=== PATIENT | male | born 1955 | race Caucasian/White ===

== ENCOUNTER 2019-07-19 12:03 | Observation (INO) | payer OTHER, SELFPAY ==
--- NOTE | ~2019-07-19 | XR_ITS ---
EXAMINATION: XR chest 2V DATE: 07/19/2019 15:53 INDICATION: Allergic reaction presenting with dizziness and angioedema with lip swelling. TECHNIQUE: PA and lateral views of the chest were obtained. COMPARISON: Chest radiograph dated 11/16/2016 FINDINGS: Minimal linear discoid atelectasis at the lingula. Small calcified nodules in the right upper lung zo ne consistent with old granulomatous disease. No other airspace opacities, pulmonary edema, pleural e ffusion or pneumothorax. The cardiomediastinal silhouette is normal. Mild thoracic spondylosis. IMPRESSION: 1. Minimal lingular atelectasis. No other acute cardiopulmonary disease. Reviewed, dictated and finalized at location A. ANOLOGY TEACHER
--- NOTE | 2019-07-19 12:17 | ED.ALLEREA ---
HPI - Allergic Reaction General Chief complaint: Allergic Reaction Stated complaint: ?? allergic reaction Time Seen by Provider: 07/19/19 12:08 Source: EMS Mode of arrival: ambulatory Limitations: no limitations History of Present Illness HPI narrative: Patient is a 64-year-old male who presents to emergency department for evaluation of possible allergic reaction that began immediately after eating hummus notes that he began to itch and feel tingly and irritated and began to develop diffuse redness notes that he has had similar occurrences in the past EMS was contacted presented gave the patient Oralia patient on arrival notes that he continues to have his symptoms with similar occurrence in the past also notes feeling anxious patient denies any recent illness notes that he did also start metformin yesterday and took a pill yesterday with no complication. Patient denies throat tightening or difficulty swallowing Related Data Home Medications Medication Instructions Recorded Confirmed adalimumab 40 mg/0.8 mL 40 mg SUB-Q .every 7 days each 06/12/19 subcutaneous pen kit folic acid 1 mg tablet 1 mg PO DAILY 06/12/19 methotrexate sodium 2.5 mg tablet 10 mg PO WEEKLY tablet 06/12/19 Allergies Allergy/AdvReac Type Severity Reaction Status Date / Time Siberian ginseng Allergy Unknown HIVES Verified 09/10/18 09:45 Review of Systems Review of Systems: All systems reviewed & are unremarkable except as noted in HPI and below PMFSH Past Medical History Medical History Hypothyroidism Family History Family History Father Hypertension Social History Social History Alcohol intake: current Gender identity (if verbalized by the patient): Male Exam Narrative: Exam Narrative: GENERAL: Well-appearing, well-nourished, and in no acute distress. HEAD: Normocephalic, atraumatic. EYES: PERRLA and EOMI. ENT: Nares clear, no rhinorrhea or epistaxis. Mucous membranes moist. Oropharynx without tonsillar hypertrophy exudate or other lesions. No angioedema in the oropharynx NECK: Supple. No adenopathy or masses. No stridor CHEST: Clear to auscultation. No respiratory distress. No wheezes rales or rhonchi HEART: Tachycardic rate and rhythm. No murmur heard. Normal peripheral pulses. ABDOMEN: Soft, nontender, nondistended EXTREMITIES: Normal range of motion. No edema. SKIN: Warm, dry, diffuse erythematous rash NEURO: No focal deficits. Alert and oriented x3. Cranial nerves II through XII grossly intact PSYCH: Normal mood and affect. Course Course Emergency Course: Patient in the room in no distress hydrated in the emergency department was given medications for the allergic reaction with improvement will be kept in hospital for potential DKA and is agreeing to do so and is feeling much better at this time Consultations Consultation #1: Spoke with the curriculum coordinator and hospitalist have agreed to accept the patient Vital Signs Vital signs: Vital Signs Pulse Rate 122 H 07/19/19 12:32 Respiratory Rate 14 07/19/19 12:32 Blood Pressure 82/50 L 07/19/19 12:32 Pulse Oximetry 96 07/19/19 12:32 Pulse Rate 100 07/19/19 14:49 Respiratory Rate 19 07/19/19 14:49 Blood Pressure 119/65 07/19/19 14:49 Pulse Oximetry 99 07/19/19 14:49 MDM - Allergic Reaction MDM Narrative Medical decision making narrative: Patient in the room found to be in DKA his allergic reaction was treated unsure as to the etiology afebrile nontoxic-appearing at this time he dynamically stable feeling better Lab Data Result diagrams: 07/19/19 12:26 07/19/19 12:26 Labs: Lab Results 07/19/19 07/19/19 07/19/19 Range/Units 12:26 12:26 12:26 WBC 10.5 H (4.5-10.0) K/mm3 RBC 5.44 (4.6-6.20) M/mm3 Hgb 16.7 (14.0-18.0) g/dL H
[2019-07-19] MEDS: methylPREDNISolone SOD SUCC 125 MG VIAL IV PUSH (12:19)
[2019-07-19] MEDS: FAMOTIDINE 20 MG/2 ML VIAL IV PUSH ×2 (12:21→22:45)
[2019-07-19] MEDS: EPINEPHrine HCL INJ 1 MG/ML AMPUL 0.3 MG IM (12:22)
[2019-07-19] MEDS: SODIUM CHLORIDE 0.9% IV 1,000 ML 999 ML IV CONT (12:26)
[2019-07-19 12:32] VITALS: BP 82/50; PULSE 122; RESP 14; O2SAT 96
[2019-07-19 12:32] LABS: Basophils Percent Auto 0.3 % (0.2-1.2); Eosinophils Absolute Auto 0.1 K/mm3 (0-0.3); Eosinophils Percent Auto 0.9 % (0-4.4); Hematocrit 49.2 % (42.0-52.0); Hemoglobin 16.7 g/dL (14.0-18.0); Immature Granulocyte Absolute 0.07 K/mm3 (0.00-0.031); Immature Granulocyte Percent A 0.7 % (0-0.5); Lymphocytes Absolute Auto 3.14 K/mm3 (0.9-3.2); Lymphocytes Percent Auto 29.9 % (18.3-44.2); Mean Corpuscular HGB Conc 33.9 g/dl (32-36); Mean Corpuscular Hemoglobin 30.7 pg (26-34); Mean Corpuscular Volume 90.4 fl (80-100); Mean Platelet Volume 10.6 fl (7.4-10.4); Monocytes Absolute Auto 0.4 K/mm3 (0.1-0.6); Monocytes Percent Auto 3.3 % (2.6-8.5); Neutrophils Absolute Auto 6.8 K/mm3 (1.3-6.7); Neutrophils Percent Auto 64.9 % (45.5-73.1); Platelet Count Result 313 k/mm3 (150-375); Red Blood Count 5.44 M/mm3 (4.6-6.20); Red Cell Distribution Width 13.6 % (11.5-14.5); White Blood Count 10.5 K/mm3 (4.5-10.0)
[2019-07-19 12:50] LABS: Blood Urea Nitrogen 30 mg/dL (9-20); Calcium 8.7 mg/dL (8.4-10.2); Carbon Dioxide 11 mmol/L (22-30); Chloride 98 mmol/L (98-107); Estimated Glomerular Filt Rate 34; Glucose 291 mg/dL (75-110); Potassium 4.1 mmol/L (3.4-5.0); Sodium 135 mmol/L (137-145)
[2019-07-19] MEDS: LORAZEPAM INJ 2 MG/ML VIAL 0.5 MG IV PUSH (13:09)
[2019-07-19 13:13] VITALS: BP 82/51; PULSE 99; O2SAT 98
[2019-07-19 13:33] LABS: Magnesium 2.1 mg/dL (1.6-2.3); Phosphorus 5.7 mg/dL (2.5-4.5)
[2019-07-19 13:38] LABS: Beta-Hydroxybutyrate/Acetoacetate 0.96 mmol/L (0.02-0.27)
--- NOTE | 2019-07-19 13:53 | PC.NURSE ---
Pt is unable to give urine sample now
[2019-07-19 14:49] VITALS: BP 119/65; PULSE 100; RESP 19; O2SAT 99
[2019-07-19 15:01] LABS: Add Urine Microscopic? YES; Appearance Urine Cloudy (Clear); Bacteria Urine Trace /hpf; Bilirubin Urine Negative (Negative); Blood Urine 1+ (Negative); Color Urine Yellow (Yellow); Glucose Urine UA 1+ mg/dL (Negative); Hyaline Casts Urine 20-29 /lpf; Ketones Urine Trace mg/dL (Negative); Leukocyte Esterase Ur Negative LEU/UL (Negative); Mucus Urine Rare /lpf; Nitrate Urine Negative (Negative); Protein Urine 2+ mg/dL (Negative); Specific Grav Ur 1.017 (1.001-1.035); Squamous Epithelial Cell Urine Occasional /hpf (Few); Urobilinogen Urine Negative mg/dL (<2.0); WBC Urine 0-3 /hpf
[2019-07-19 15:13] LABS: Alveolar/Arterial O2 Gradient 30.6 mmHg; Base Excess ABG -10.9 mEq/l (+/-2.0); Carboxyhemoglobin 0.4 % THb (0-2.0); Device ROOM AIR; Fractional Inspired Oxygen 21 %; HCO3 ABG 12.9 mEq/l (22.0-26.0); Methemoglobin ABG 0.2 %THb (0-1.5); Modified Allen's Test Pass; Oxygen Content ABG 20.2 %vol (16.0-22.0); Oxygen Saturation ABG 96.6 % (95.0-100.0); Oxyhemoglobin 95.4 % THb (90.0-100.0); PCO2 ABG 24.5 mmHg (35.0-45.0); PO2 ABG 89.8 mmHg (80.0-100.0); PO2 FiO2 Ratio Arterial Blood 4.28 %; Site Drawn LEFT RADIAL; pH ABG 7.338 (7.350-7.450)
[2019-07-19] MEDS: INSULIN HUMAN REGULAR (*BKC) 100 UNITS in SODIUM CHLORIDE 0.9% IV 99 ML 8 UNITS IV CONT (16:20)
[2019-07-19] MEDS: INSULIN HUMAN REGULAR (*BKC) 100 UNITS/ML IV PUSH (16:25)
[2019-07-19 16:30] LABS: Lactic Acid Reflex 1.8 mmol/L (0.7-2.1)
[2019-07-19 19:08] LABS: Glucose Point of Care 296 (65-105)
[2019-07-19 19:08] LABS: Glucose Point of Care 200 (65-105)
[2019-07-19 19:08] LABS: Glucose Point of Care 174 (65-105)
--- NOTE | 2019-07-19 19:13 | PC.NURSE ---
called to give report, was told receiving nurse was in middle of report and will call me when she is done
[2019-07-19 19:14] VITALS: BP 133/77; PULSE 99; O2SAT 96
--- NOTE | 2019-07-19 20:05 | PM.IMHP ---
H&P: HPI History of Present Illness Chief complaint: Allergic Reaction Narrative: This is a pleasant 64 year old diabetic male who has had diabetes for the past 5 years and presented [facility] with an acute allergic reaction. The patient is known to have had #5 previous allergic reactions in the past from different foods and describes having an allergic reaction today that occurred approximately 5 minutes after eating red pepper hummus. He immediately started to develop itching and blotchy hives all over his torso and back. He also experienced shortness of breath and lip swelling. These symptoms are characteristic of his previous reactions. His daughter was coming over to see him and he got up to answer the door and passed out before he got to the door. He does not know how long he was down for but believes it was only for a few minutes. EMT arrived and after a few minutes they attempted to walk him but he again had presyncopal symptoms of blurry vision and faintness. He was put in a stretcher before he passed out a second time. He denies any nausea or vomiting but does admit that over the past week has been feeling bad. He did notice that his blood sugars have been over 200 mg/dl and he did see his PCP yesterday who just started him on Metformin again. He previously was on metformin but admits that he has been off of his diabetic medication for over 2 years. He hasn't been checking his blood glucose regularly. Over the past week has had increased urinary frequency and thirst. He denies any other symptoms tonight such as sore throat, fevers, coughing, diarrhea, abdominal pain, nausea, vomiting, dysuria, hematuria, black stools, chest pain, palpitations, or rectal bleeding. In the ER tonight the patient was treated with epinephrine, solu-medrol, and found to have a metabolic acidosis w/ increased anion gap. He was initiated on an insulin drip and Photographic Process Attendant was consulted. We have been asked to admit him to the hospital for further care. Review of Systems Review of Systems: All systems reviewed & are unremarkable except as noted in HPI and below PMFSH Past Medical History Medical History Diabetes mellitus HTN (hypertension), benign Hyperlipidemia Hypothyroidism Psoriatic arthritis Surgical History Surgical History Total knee replacement status Family History Family History Father Hypertension Social History Social History Smoking status: Former smoker Tobacco type: cigars Smoking end date: 07/19/19 Alcohol intake: current Drinks per week: 3 Substance use: never Gender identity (if verbalized by the patient): Male Spiritual care concerns: No Agree to blood products: Yes Meds Home Medications and Allergies Home Medications Medication Instructions Recorded Confirmed Type pravastatin 40 mg tablet 40 mg PO DAILY #90 tablet 04/24/19 Rx adalimumab 40 mg/0.8 mL 40 mg SUB-Q .every 7 days each 06/12/19 History subcutaneous pen kit folic acid 1 mg tablet 1 mg PO DAILY 06/12/19 History methotrexate sodium 2.5 mg tablet 10 mg PO WEEKLY tablet 06/12/19 History lisinopril 40 mg tablet 40 mg PO DAILY #180 tablet 07/04/19 Rx metformin 500 mg tablet 500 mg PO BID #60 tablet 07/18/19 07/18/19 Rx Allergies Allergy/AdvReac Type Severity Reaction Status Date / Time Siberian ginseng Allergy Unknown HIVES Verified 09/10/18 09:45 hummus Allergy Intermediate Swelling Uncoded 07/19/19 22:14 Vital Signs Vital Signs - 24 hr 07/19/19 12:32 07/19/19 13:13 07/19/19 14:49 Pulse Rate 122 H 99 100 Respiratory Rate 14 19 Blood Pressure 82/50 L 82/51 L 119/65 Pulse Oximetry 96 98 99 07/19/19 19:14 Pulse Rate 99 Respiratory Rate Blood Pressure 133/77 Pulse Oximetry 96 Exam
[2019-07-19 20:15] VITALS: BP 114/80; PULSE 113; RESP 16; TEMP 36.9; O2SAT 96
[2019-07-19 20:26] LABS: Glucose Point of Care 130 (65-105)
[2019-07-19 20:33] VITALS: BMI 28.7
[2019-07-19 21:04] LABS: Blood Urea Nitrogen 29 mg/dL (9-20); Calcium 8.4 mg/dL (8.4-10.2); Carbon Dioxide 15 mmol/L (22-30); Chloride 104 mmol/L (98-107); Estimated CRCL calculation 43 ml/min; Estimated Glomerular Filt Rate 44; Glucose 129 mg/dL (75-110); Potassium 4.3 mmol/L (3.4-5.0); Sodium 133 mmol/L (137-145)
--- NOTE | 2019-07-19 21:08 | ADMGEN ---
This patient, Didier Frazier, was admitted to Intensive Care Unit-9 at 2003. Patient/family oriented to hospital policies and general routines including ID bracelet, bed and alarms, visiting hours, pain management, procedures, bathroom and other care routines, personal items, smoking policy, room service/diet, and visiting hours. Valuables list has been completed. Information on how to activate the Rapid Response Team has been discussed. Patient/Family are encouraged to report perceived risks to care and to ask questions if they do not understand what they are told or what they should do.
[2019-07-19 21:15] LABS: Hemoglobin A1C 10.5 % (<5.7)
[2019-07-19 21:28] LABS: Glucose Point of Care 83 (65-105)
[2019-07-19] MEDS: KCL 20 MEQ/D5/0.45% SOD CHL 1,000 ML 150 ML IV CONT (21:43)
[2019-07-19 22:00] VITALS: BP 95/60; PULSE 72; RESP 16; O2SAT 97
[2019-07-19 22:33] LABS: Glucose Point of Care 153 (65-105)
[2019-07-19 23:29] LABS: Glucose Point of Care 152 (65-105)
[2019-07-20] VITALS (8 sets, daily range): BP systolic 84–132; BP diastolic 56–98; PULSE 58–84; RESP 12–18; TEMP 36.4–36.8; O2SAT 98–100; BMI 28.8
[2019-07-20 00:39] LABS: Blood Urea Nitrogen 28 mg/dL (9-20); Calcium 8.4 mg/dL (8.4-10.2); Carbon Dioxide 17 mmol/L (22-30); Chloride 103 mmol/L (98-107); Estimated CRCL calculation 46 ml/min; Estimated Glomerular Filt Rate 47; Glucose 159 mg/dL (75-110); Potassium 4.9 mmol/L (3.4-5.0); Sodium 132 mmol/L (137-145)
[2019-07-20 00:57] LABS: Glucose Point of Care 154 (65-105)
[2019-07-20 01:27] LABS: Glucose Point of Care 165 (65-105)
[2019-07-20 01:58] LABS: Glucose Point of Care 160 (65-105)
[2019-07-20] MEDS: INSULIN GLARGINE (*BKC) 100 UNITS/ML 10 UNITS SUB-Q (02:04)
[2019-07-20 02:57] LABS: Glucose Point of Care 163 (65-105)
[2019-07-20] MEDS: SODIUM CHLORIDE 0.9% IV 1,000 ML 150 ML IV CONT ×2 (03:22→08:25)
[2019-07-20 04:51] LABS: Basophils Percent Auto 0.1 % (0.2-1.2); Hematocrit 37.7 % (42.0-52.0); Hemoglobin 13.2 g/dL (14.0-18.0); Immature Granulocyte Absolute 0.04 K/mm3 (0.00-0.031); Immature Granulocyte Percent A 0.4 % (0-0.5); Lymphocytes Absolute Auto 1.13 K/mm3 (0.9-3.2); Mean Corpuscular Hemoglobin 31.2 pg (26-34); Mean Corpuscular Volume 89.1 fl (80-100); Mean Platelet Volume 10.4 fl (7.4-10.4); Monocytes Absolute Auto 0.5 K/mm3 (0.1-0.6); Monocytes Percent Auto 4.3 % (2.6-8.5); Neutrophils Absolute Auto 9.6 K/mm3 (1.3-6.7); Neutrophils Percent Auto 85.2 % (45.5-73.1); Platelet Count Result 266 k/mm3 (150-375); Red Blood Count 4.23 M/mm3 (4.6-6.20); Red Cell Distribution Width 13.7 % (11.5-14.5); White Blood Count 11.3 K/mm3 (4.5-10.0)
[2019-07-20 05:11] LABS: Blood Urea Nitrogen 27 mg/dL (9-20); Calcium 8.5 mg/dL (8.4-10.2); Carbon Dioxide 18 mmol/L (22-30); Chloride 105 mmol/L (98-107); Estimated CRCL calculation 49 ml/min; Estimated Glomerular Filt Rate 51; Glucose 151 mg/dL (75-110); Potassium 5.2 mmol/L (3.4-5.0); Sodium 133 mmol/L (137-145)
[2019-07-20 07:31] LABS: Glucose Point of Care 122 (65-105)
[2019-07-20] MEDS: PRAVASTATIN SODIUM 20 MG TABLET 40 MG PO (08:22)
[2019-07-20] MEDS: FOLIC ACID 1 MG TABLET PO (08:22)
[2019-07-20] MEDS: FAMOTIDINE 20 MG/2 ML VIAL IV PUSH (08:23)
--- NOTE | 2019-07-20 08:51 | PM.IMPN ---
Progress Note: A&P Assessment and Plan (1) Anaphylaxis: Qualifiers: Encounter type: initial encounter Qualified Code(s): T78.2XXA - Anaphylactic shock, unspecified, initial encounter Code(s): T78.2XXA - Anaphylactic shock, unspecified, initial encounter Status: Acute Assessment and Plan: Appears to have been result of red pepper hummus. Symptoms have now been resolved after receiving IV Solu-Medrol, Benadryl and IV Pepcid. Known history of problems with allergic reactions. Telemetry reviewed on 07/20/2019 with sinus rhythm. Will transfer to medical floor. Discussed with sticker on. Should have EpiPen available on discharge. (2) Metabolic acidosis with increased anion gap and accumulation of organic acids: Code(s): E87.2 - Acidosis Status: Acute Assessment and Plan: Elevated anion gap on admission. Due to uncontrolled diabetes mellitus. Now off IV insulin drip. Did receive Lantus 10 units earlier today. Anion gap is closed. Will continue to monitor glucose. (3) Uncontrolled diabetes mellitus: Qualifiers: Diabetes mellitus type: type 2 Glycemic state: with hyperglycemia Qualified Code(s): E11.65 - Type 2 diabetes mellitus with hyperglycemia Code(s): E11.65 - Type 2 diabetes mellitus with hyperglycemia Status: Chronic Assessment and Plan: HgbA1C 10.5. Previous history of pre diabetes for several years. Has not been doing well with diet for several months. Recently diagnosed with diabetes 2 days ago by primary care physician. Was started on metformin at that time but advised will not restart given his creatinine level. Patient aware will most likely go home on insulin. Has already received Lantus earlier today. Continue sliding scale insulin. Will continue to monitor glucose levels. Consults to dietitian and chemical educator initiated. Patient very motivated to pursue healthy lifestyle changes once again for better control of his diabetes. (4) Acute renal failure: Qualifiers: Acute renal failure type: unspecified Qualified Code(s): N17.9 - Acute kidney failure, unspecified Code(s): N17.9 - Acute kidney failure, unspecified Status: Acute Assessment and Plan: Patient reports has known issues with kidneys being affected by other medications with his Humira for psoriatic arthritis. Creatinine is now down to 1.40 this morning after being 2.00 on admission. Will discontinue IV fluids as able to orally hydrate. Will continue to monitor. (5) Leukocytosis: Qualifiers: Leukocytosis type: unspecified Qualified Code(s): D72.829 - Elevated white blood cell count, unspecified Code(s): D72.829 - Elevated white blood cell count, unspecified Status: Acute Assessment and Plan: Likely secondary to acute anaphylaxis. No signs of acute infection. WBC 11.3 today but did receive IV steroids yesterday. Will monitor while here. (6) Benign essential hypertension: Code(s): I10 - Essential (primary) hypertension Status: Chronic Assessment and Plan: Blood pressure reviewed on 07/20/2019 and stable with home lisinopril on hold. Will continue to monitor. (7) Mixed hyperlipidemia: Code(s): E78.2 - Mixed hyperlipidemia Status: Chronic Assessment and Plan: Continue pravastatin. (8) Psoriatic arthritis: Code(s): L40.50 - Arthropathic psoriasis, unspecified Status: Chronic Assessment and Plan: Continue home folic acid, methotrexate and Humira. (9) DVT prophylaxis: Code(s): Z29.9 - Encounter for prophylactic measures, unspecified Status: Acute Assessment and Plan: SCDs. Time Spent With Patient Time with patient: 15 - 25 minutes Subjective Date/time seen: 07/20/19 08:51 Interval history: Date of Service: 07/20/2019. Admitted with anaphylactic allergic reaction and metabolic acidosis with increased anion gap se
--- NOTE | 2019-07-20 09:10 | WPDCNINT ---
Assessment and Plan Assessment and plan (1) Anaphylaxis: Qualifiers: Encounter type: initial encounter Qualified Code(s): T78.2XXA - Anaphylactic shock, unspecified, initial encounter Code(s): T78.2XXA - Anaphylactic shock, unspecified, initial encounter Status: Acute Assessment and Plan: Symptoms have now been resolved after receiving IV Solu-Medrol, Benadryl and IV Pepcid In the emergency department. hemodynamically stable and rash has resolved patient is transferring to medical floor. further treatment as per internal medicine physician (2) DKA (diabetic ketoacidoses): Code(s): E11.10 - Type 2 diabetes mellitus with ketoacidosis without coma Status: Acute Assessment and Plan: Elevated anion gap on admission. Due to uncontrolled diabetes mellitus. patient was started on IV insulin infusion and IV fluids. Overnight his anion gap has closed and patient is Now off IV insulin drip. Did receive Lantus 10 units earlier today. Will continue to monitor glucose. (3) Uncontrolled diabetes mellitus: Qualifiers: Diabetes mellitus type: type 2 Glycemic state: with hyperglycemia Qualified Code(s): E11.65 - Type 2 diabetes mellitus with hyperglycemia Code(s): E11.65 - Type 2 diabetes mellitus with hyperglycemia Status: Chronic Assessment and Plan: HgbA1C 10.5. Previous history of pre diabetes for several years. Has not been doing well with diet for several months. Recently diagnosed with diabetes 2 days ago by primary care physician. Was started on metformin at that time. metformin held due to elevated creatinine level. on Lantus and sliding scale at this time Consults to dietitian and measurer initiated. (4) Acute renal failure: Qualifiers: Acute renal failure type: unspecified Qualified Code(s): N17.9 - Acute kidney failure, unspecified Code(s): N17.9 - Acute kidney failure, unspecified Status: Acute Assessment and Plan: likely prerenal from hypertension and hypokalemia. improved with IV fluids Creatinine is now down to 1.40 this morning after being 2.00 on admission. monitor intake and output and creatinine (5) Benign essential hypertension: Code(s): I10 - Essential (primary) hypertension Status: Chronic Assessment and Plan: treat as needed Will continue to monitor. (6) Mixed hyperlipidemia: Code(s): E78.2 - Mixed hyperlipidemia Status: Chronic Assessment and Plan: Continue pravastatin. (7) Psoriatic arthritis: Code(s): L40.50 - Arthropathic psoriasis, unspecified Status: Chronic Assessment and Plan: Continue home folic acid, methotrexate and Humira. (8) DVT prophylaxis: Code(s): Z29.9 - Encounter for prophylactic measures, unspecified Status: Acute Assessment and Plan: SCDs. Additional Plan patient is transferring out to floor today. I will sign off at this time Scrape Gatherer Consult Note Consult date: 07/20/19 Time Seen: 09:10 HPI: Didier Frazier is a 64 year old male with past medical history of diabetes who was not on any treatment presented yesterday to emergency department with allergic reaction after eating hummus. Patient immediately noted itching all over his body and red bumps after eating teaspoonful of her hummus. Patient has had allergic reaction in the past for different food items and most of them have resolved by taking Benadryl. In ED patient was found to be hyperglycemic, had elevated ketones and was diagnosed with DKA. His lactic acid level was normal. patient was found to be hypotensive and dehydrated. He was given IV fluids and started on insulin infusion. Is anaphylaxis was treated with epinephrine, solu-medrol, and H2B. overnight patient's anion gap closed and patient was switched from IV insulin infusion to subcutaneous insulin. Patient this morning feels 'fantastic' and denies an
--- NOTE | 2019-07-20 11:05 | PCDIET ---
Patient/spouse educated re: carbohydrate counting this date. Questions answered and RD contact information provided with Diabetes Management booklet.
--- NOTE | 2019-07-20 11:08 | PC.NURSE ---
This patient, Didier Frazier, was transferred to [facility] on 07/20/19 at 1109. Personal belongings sent with patient. Report given to Vandana BETTS. Appropriate documentation sent with patient.
[2019-07-20 11:28] LABS: Glucose Point of Care 188 (65-105)
--- NOTE | 2019-07-20 11:35 | PC.NURSE ---
This patient, Didier Frazier, was received from [ ICU] on 07/20/19 at 1135. Personal belongings list checked and signed. Patient/family oriented to unit policies and routines
[2019-07-20] MEDS: SODIUM POLYSTYRENE SULFONONATE 15 GM/60 ML BTL 30 GM PO (13:36)
[2019-07-20 17:03] LABS: Glucose Point of Care 181 (65-105)
[2019-07-20] MEDS: FAMOTIDINE 20 MG TABLET PO (20:41)
[2019-07-20 21:51] LABS: Glucose Point of Care 192 (65-105)
[2019-07-21 06:00] VITALS: BP 112/56; PULSE 85; RESP 16; TEMP 36.3; O2SAT 100
[2019-07-21 06:28] LABS: Hematocrit 39.3 % (42.0-52.0); Hemoglobin 13.6 g/dL (14.0-18.0); Mean Corpuscular HGB Conc 34.6 g/dl (32-36); Mean Corpuscular Hemoglobin 30.9 pg (26-34); Mean Corpuscular Volume 89.3 fl (80-100); Mean Platelet Volume 10.3 fl (7.4-10.4); Platelet Count Result 261 k/mm3 (150-375); Red Cell Distribution Width 13.7 % (11.5-14.5); White Blood Count 8.2 K/mm3 (4.5-10.0)
[2019-07-21 06:36] LABS: Blood Urea Nitrogen 22 mg/dL (9-20); Calcium 8.8 mg/dL (8.4-10.2); Carbon Dioxide 21 mmol/L (22-30); Chloride 106 mmol/L (98-107); Estimated CRCL calculation 52 ml/min; Estimated Glomerular Filt Rate 55; Glucose 151 mg/dL (75-110); Phosphorus 3.4 mg/dL (2.5-4.5); Potassium 4.3 mmol/L (3.4-5.0); Sodium 135 mmol/L (137-145)
[2019-07-21] MEDS: INSULIN GLARGINE (*BKC) 100 UNITS/ML 10 UNITS SUB-Q (08:04)
[2019-07-21] MEDS: PRAVASTATIN SODIUM 20 MG TABLET 40 MG PO (08:07)
[2019-07-21] MEDS: FAMOTIDINE 20 MG TABLET PO (08:08)
[2019-07-21] MEDS: METHOTREXATE 2.5 MG TAB (*CHEMO) 10 MG PO (08:08)
[2019-07-21] MEDS: FOLIC ACID 1 MG TABLET PO (08:08)
[2019-07-21 09:16] LABS: Glucose Point of Care 139 (65-105)
--- NOTE | 2019-07-21 11:15 | PM.DS ---
DS: Diagnosis Admitting Diagnosis Admitting Diagnosis: Anaphylactic shock, unspecified, initial encounter Discharge Diagnosis (1) Anaphylaxis: Qualifiers: Encounter type: initial encounter Qualified Code(s): T78.2XXA - Anaphylactic shock, unspecified, initial encounter Code(s): T78.2XXA - Anaphylactic shock, unspecified, initial encounter Status: Acute Assessment and Plan: Appears to have been result of red pepper hummus. Symptoms have now been resolved after receiving IV Solu-Medrol, Benadryl and IV Pepcid. Known history of problems with allergic reactions. Telemetry reviewed on 07/20/2019 with sinus rhythm. Will transfer to medical floor. Discussed with aviation electrician. Should have EpiPen available on discharge. (2) Metabolic acidosis with increased anion gap and accumulation of organic acids: Code(s): E87.2 - Acidosis Status: Acute Assessment and Plan: Elevated anion gap on admission. Due to uncontrolled diabetes mellitus. Now off IV insulin drip. Did receive Lantus 10 units earlier today. Anion gap is closed. Will continue to monitor glucose. (3) Uncontrolled diabetes mellitus: Qualifiers: Diabetes mellitus type: type 2 Glycemic state: with hyperglycemia Qualified Code(s): E11.65 - Type 2 diabetes mellitus with hyperglycemia Code(s): E11.65 - Type 2 diabetes mellitus with hyperglycemia Status: Chronic Assessment and Plan: HgbA1C 10.5. Previous history of pre diabetes for several years. Has not been doing well with diet for several months. Recently diagnosed with diabetes 2 days ago by primary care physician. Was started on metformin at that time but advised will not restart given his creatinine level. Patient aware will most likely go home on insulin. Has already received Lantus earlier today. Continue sliding scale insulin. Will continue to monitor glucose levels. Consults to dietitian and clinical nurse educator initiated. Patient very motivated to pursue healthy lifestyle changes once again for better control of his diabetes. (4) Acute renal failure: Qualifiers: Acute renal failure type: unspecified Qualified Code(s): N17.9 - Acute kidney failure, unspecified Code(s): N17.9 - Acute kidney failure, unspecified Status: Acute Assessment and Plan: Patient reports has known issues with kidneys being affected by other medications with his Humira for psoriatic arthritis. Creatinine is now down to 1.40 this morning after being 2.00 on admission. Will discontinue IV fluids as able to orally hydrate. Will continue to monitor. (5) Leukocytosis: Qualifiers: Leukocytosis type: unspecified Qualified Code(s): D72.829 - Elevated white blood cell count, unspecified Code(s): D72.829 - Elevated white blood cell count, unspecified Status: Acute Assessment and Plan: Likely secondary to acute anaphylaxis. No signs of acute infection. WBC 11.3 today but did receive IV steroids yesterday. Will monitor while here. (6) Benign essential hypertension: Code(s): I10 - Essential (primary) hypertension Status: Chronic Assessment and Plan: Blood pressure reviewed on 07/20/2019 and stable with home lisinopril on hold. Will continue to monitor. (7) Mixed hyperlipidemia: Code(s): E78.2 - Mixed hyperlipidemia Status: Chronic Assessment and Plan: Continue pravastatin. (8) Psoriatic arthritis: Code(s): L40.50 - Arthropathic psoriasis, unspecified Status: Chronic Assessment and Plan: Continue home folic acid, methotrexate and Humira. (9) DVT prophylaxis: Code(s): Z29.9 - Encounter for prophylactic measures, unspecified Status: Acute Assessment and Plan: SCDs. DS: Summary Hospital Course Reason for hospitalization: This is a pleasant 64 year old diabetic male who has had diabetes for the past 5 years and presented t
[2019-07-21 12:39] LABS: Glucose Point of Care 136 (65-105)
[2019-07-23 11:06] LABS: Glucose Point of Care 292 (65-105)
== END 2019-07-21 12:30 | disposition home or self-care (01) ==
LOC: ANHED 17:03 → ANHICU 20:13 → ANH3MEDSUR 07-20 12:11 → ANHICU 07-23 16:23
PROVIDERS: Emergency Medicine Emergency Medical Services; Family Medicine; Internal Medicine; Admitting Provider Family Medicine; Emergency Provider Emergency Medicine; PCP Internal Medicine; Visit Provider Family Medicine
DX: T78.2XXA Anaphylactic shock, unspecified, initial encounter (principal); E87.2 Acidosis; E11.65 Type 2 diabetes mellitus with hyperglycemia; N17.9 Acute kidney failure, unspecified; D72.829 Elevated white blood cell count, unspecified; I10 Essential (primary) hypertension; E78.2 Mixed hyperlipidemia; L40.50 Arthropathic psoriasis, unspecified; E03.9 Hypothyroidism, unspecified; Z79.84 Long term (current) use of oral hypoglycemic drugs; Z79.899 Other long term (current) drug therapy; Z87.891 Personal history of nicotine dependence; Z91.018 Allergy to other foods; Z96.659 Presence of unspecified artificial knee joint
CPT/HCPCS: 36415; 36600; 71046; 80048; 81001; 82010; 82375; 82805; 82948; 83036; 83050; 83605; 83735; 84100; 85025; 85027; 87081; 87804; 96361; 96365; 96366; 96368; 96372; 96375; 96376; 99291; A9270; G0378; J0171; J1815; J2060; J2930; J3480; J7030

== ENCOUNTER → 2020-01-24 13:39 | Outpatient (CLI) | payer OTHER, SELFPAY ==
--- NOTE | ~2020-01-24 | US_ITS ---
EXAMINATION: US renal BI DATE: 01/24/2020 14:03 INDICATION: Abnormal results of kidney function tests TECHNIQUE: Multiple grayscale and Doppler ultrasound images of the kidneys were obtained. COMPARISON: None. FINDINGS: The right kidney measures 9.7 x 4.9 x 5.8 cm. The left kidney measures 10.6 x 5.5 x 5.4 cm. There is a 1.4 x 1.5 cm cyst of the left kidney upper pole. The kidneys demonstrate normal parenchym al echogenicity. There is no hydronephrosis. The bladder is incompletely distended but unremarkable i n appearance. IMPRESSION: 1. Normal kidneys without hydronephrosis. Reviewed, dictated and finalized at location A.
== END ==
PROVIDERS: PCP Internal Medicine; Visit Provider Internal Medicine Nephrology
DX: R94.4 Abnormal results of kidney function studies (principal)
CPT/HCPCS: 76775

== ENCOUNTER 2023-02-26 11:51 | Inpatient (IN) | payer BC, MEDICARE, SELFPAY ==
[2023-02-26] VITALS (8 sets, daily range): BP systolic 101–138; BP diastolic 65–89; PULSE 82–102; RESP 14–22; TEMP 36.6–36.8; O2SAT 97–100; BMI 27.8
--- NOTE | ~2023-02-26 | XR_ITS ---
EXAMINATION: XR chest 1V portable DATE: 03/08/2023 22:22 INDICATION: Shortness of breath. TECHNIQUE: A single frontal view of the chest was obtained. COMPARISON: Chest single view 03/08/2023 at 8:19 AM FINDINGS: There is a diffuse interstitial pattern in the lungs. There are airspace opacities in the p erihilar regions. There is a small right pleural effusion. No pneumothorax. The heart size is normal. A right internal jugular central venous catheter is seen with tip in the right atrium. IMPRESSION: 1. Worsened diffuse lung disease, consistent with moderate pulmonary edema. 2. Small right pleural effusion. Reviewed, dictated and finalized at location E.
--- NOTE | ~2023-02-26 | XR_ITS ---
EXAMINATION: XR abdomen gastric tube insert DATE: 03/09/2023 10:50 INDICATION: Nasogastric tube insertion TECHNIQUE: A supine view of the abdomen and lower chest was obtained for evaluation of feeding tube placement. COMPARISON: Chest radiograph dated 03/09/2023 FINDINGS: Nasogastric tube extends into the body the stomach with distal tip collimated beyond the inferior mar gin of the [id number]-gw-bjjz. Endotracheal tube tip 6.0 cm above the asael. Large-bore dual-lumen right internal jugular central venous catheter with distal tip in the high right atrium. Again seen are bi lateral perihilar predominant opacities most suspicious for moderate pulmonary edema although differe ntial includes pneumonia. Heart size is normal. IMPRESSION: 1. Nasogastric tube extends into the stomach with distal tip collimated below the inferior margin of the [id number]. 2. Bilateral perihilar opacities which could represent moderate pulmonary edema or pneumonia. Reviewed, dictated and finalized at location A. IMPRESSION: 1. Nasogastric tube extends into the stomach with distal tip collimated below t he inferior margin of the [id number]-ld-[id number]. 2. Bilateral perihilar opacities which could represent moderate pulmonary edema or pneumonia.
--- NOTE | ~2023-02-26 | US_ITS ---
EXAMINATION: US renal BI DATE: 02/26/2023 18:47 INDICATION: Acute on chronic kidney failure. TECHNIQUE: Multiple grayscale and Doppler ultrasound images of the kidneys were obtained. COMPARISON: None. FINDINGS: The right kidney measures 10.6 x 6.0 x 6.0 cm. The left kidney measures 11.4 x 6.0 x 5.4 cm. The kidn eys demonstrate normal parenchymal echogenicity. Right renal calculus noted. Additional known renal c alculus and the left renal calculi not visualized sonographically. Known left renal cyst not visualiz ed sonographically. There is no hydronephrosis. The bladder is decompressed by a [place] catheter. IMPRESSION: Nephrolithiasis. Otherwise unremarkable renal sonogram findings. Reviewed, dictated and finalized at location K.
--- NOTE | ~2023-02-26 | US_ITS ---
US abdomen limited DATE: 02/27/2023 09:39 INDICATION: Elevated liver function tests TECHNIQUE: Real-time imaging of liver, pancreas, gallbladder COMPARISON: 02/26/2023 CT abdomen pelvis FINDINGS: No hepatic or pancreatic space-occupying mass lesion is detected. Normal hepatopedal portal venous flow direction. No evidence of gallstones, gallbladder wall thickening or abnormal pericholecystic fluid collection. Negative sonographic Wolff's sign. The common bile duct measures 4 mm, normal. IMPRESSION: Negative Reviewed, dictated and finalized at Location A. Reviewed, dictated and finalized at location A. IMPRESSION: Negative
--- NOTE | ~2023-02-26 | CT_ITS ---
EXAMINATION: CT abdomen pelvis wo con DATE: 02/26/2023 13:30 INDICATION: lower abdominal pain, elevated LFTs, CALLI TECHNIQUE: Computed tomography (CT) of the abdomen and pelvis was performed without intravenous contr ast. Automated exposure control and iterative reconstruction technique were employed. The dose-length product was 681.64 mGy-cm. COMPARISON: None. FINDINGS: Lower thorax: Heavy coronary artery calcification. Liver: Normal. Biliary/Gallbladder: Gallbladder is normal. No bile duct dilation. Pancreas: No mass or duct dilation. Spleen: Normal. Adrenals:No mass. Kidneys: Nonobstructing bilateral renal calculi. Simple left midpole cyst. GI tract: No small or large bowel dilation. Normal appendix. Mesentery/Peritoneum: No ascites, mass, or free air. Retroperitoneum: No mass. Atherosclerotic abdominal aortic and/or arterial calcifications. Pelvis: The bladder is decompressed by [place] catheter. Soft Tissues: Soft tissues and body wall unremarkable. Bones: No acute osseous finding. IMPRESSION: No acute abdominopelvic process detected Reviewed, dictated and finalized at location K.
--- NOTE | ~2023-02-26 | XR_ITS ---
EXAMINATION: XR chest 1V portable DATE: 03/05/2023 12:26 INDICATION: Central line placement. TECHNIQUE: A single frontal view of the chest was obtained. COMPARISON: Chest one view 02/26/2023, CT abdomen and pelvis 02/26/2023 FINDINGS: There is no pneumonia, pleural effusion, or pneumothorax. The heart size is normal. A right internal jugular central venous catheter is seen with tip at the superior cavoatrial junction. IMPRESSION: 1. Central line tip at the superior cavoatrial junction. Reviewed, dictated and finalized at location A.
--- NOTE | ~2023-02-26 | XR_ITS ---
XR chest port-a-cath/central DATE: 03/08/2023 08:28 INDICATION: Insertion of dialysis catheter TECHNIQUE: Portable AP chest on 03/08/2023 at 0822 hours; 2 views COMPARISON: 03/05/2023 portable AP chest FINDINGS: Right internal jugular dialysis catheter is present, distal tip overlying upper right atriu m. No evidence of pneumothorax. There is mild infiltrate or atelectasis in the lower lung zones. There may be slight pleural effusion s. Normal heart size. IMPRESSION: Right internal jugular dialysis catheter tip overlying upper right atrium Mild infiltrate or atelectasis in the lower lung zones and possible minimal pleural effusions; no pne umothorax Reviewed, dictated and finalized at Location A. Reviewed, dictated and finalized at location L. IMPRESSION: Right internal jugular dialysis catheter tip overlying upper right atrium Mild infiltrate or atelectasis in the lower lung zones and possible minimal ple ural effusions; no pneumothorax
--- NOTE | ~2023-02-26 | XR_ITS ---
XR chest 1V portable DATE: 02/26/2023 13:15 INDICATION: Cough, shortness of breath TECHNIQUE: Portable AP chest on 02/26/2023 at 1314 hours COMPARISON: July 19, 2019 PA and lateral chest FINDINGS: Normal heart size. Minimal atelectasis at the lower lung zones. The lungs otherwise appear clear. No pleural effusion or pneumothorax. IMPRESSION: Minimal atelectasis at the lung bases Reviewed, dictated and finalized at location A.
--- NOTE | ~2023-02-26 | XR_ITS ---
XR chest ET placement DATE: 03/09/2023 10:50 INDICATION: Intubation; confirm ET tube position TECHNIQUE: Portable AP chest on 03/09/2023 at 1043 hours COMPARISON: 03/08/2023 portable AP chest at 2218 hours FINDINGS: Interval placement of ET tube since last evening. ET tube tip is approximately 6.2 cm above the asael; ideal range is 2-5 cm. NG tube is noted passing into the stomach. Large bore dual lumen right internal jugular central venous catheter tip overlies the right atrium. Heart size appears within normal limits. There are prominent bilateral central pulmonary consolidatio n, bilateral Alexys B-lines, thickening of the minor fissure consistent with subpleural edema and mil d pleural effusions are noted, consistent with pulmonary edema, congestive change. This has increased in severity since 03/08/2023 at 2218 hours. IMPRESSION: ET tube tip 6.2 cm above asael; ideal range is 2-5 cm NG tube passing into stomach Prominent pulmonary edema, increased in severity since 03/08/2023 Reviewed, dictated and finalized at Location A. Reviewed, dictated and finalized at location B.
--- NOTE | ~2023-02-26 | XR_ITS ---
EXAMINATION: XR fl guide central line place DATE: 03/08/2023 08:25 INDICATION: Dialysis catheter insertion TECHNIQUE: A single fluoroscopic image of the right clavicular region was obtained during procedure p erformed by Dr. Leiva. Radiologist was not present for the imaging or procedure. The amount of fluoro scopy time used during this procedure was 0.4 minutes. COMPARISON: None. FINDINGS/IMPRESSION: Partially visualized cephalad portion of a right internal jugular large-bore madelyn l-lumen central venous catheter. See procedure note for further detail. Reviewed, dictated and finalized at location A.
--- NOTE | 2023-02-26 12:23 | PC.NURSE ---
unable to void at this time
[2023-02-26 12:29] LABS: Hematocrit 39.1 % (42.0-52.0); Mean Corpuscular HGB Conc 35.8 g/dl (32-36); Mean Corpuscular Hemoglobin 31.5 pg (26-34); Mean Corpuscular Volume 88.1 fl (80-100); Mean Platelet Volume 11.1 fl (7.4-10.4); Platelet Count Result 202 k/mm3 (150-375); Red Blood Count 4.44 M/mm3 (4.6-6.20); Red Cell Distribution Width 14.7 % (11.5-14.5); White Blood Count 13.3 K/mm3 (4.5-10.0)
[2023-02-26 12:45] LABS: Band Neutrophils Percent 14 % (0-6); Lymphocytes Absolute Manual 0.39 K/mm3 (1.1-4.5); Monocytes Absolute Manual 0.39 K/mm3 (0.1-0.90); Monocytes Percent Manual 3 % (3-9); Neutrophils Percent Manual 80 % (46-73); Platelet Estimate Adequate (Adequate); Total Cells Counted 100
[2023-02-26 12:46] LABS: Schistocytes None Seen (NORMAL)
[2023-02-26 12:47] LABS: Alanine Aminotransferase 496 U/L (6-50); Albumin Level 3.9 g/dL (3.5-5.1); Alkaline Phosphatase 256 U/L (38-126); Anion Gap 26 mmol/L (8-16); Aspartate Amino Transferase 617 U/L (17-59); Bilirubin,Total 1.6 mg/dL (0.2-1.3); Blood Urea Nitrogen 118 mg/dL (9-20); Calcium 8.5 mg/dL (8.4-10.2); Carbon Dioxide 8 mmol/L (22-30); Chloride 91 mmol/L (98-107); Estimated CRCL calculation 5 ml/min; Estimated Glomerular Filt Rate 3; Glucose 195 mg/dL (65-110); Potassium 4.8 mmol/L (3.4-5.0); Sodium 125 mmol/L (137-145)
[2023-02-26] MEDS: LIDOCAINE HCL 2% GEL UROJET 10 ML PKG (12:58)
--- NOTE | 2023-02-26 13:10 | ED.MALEGU ---
HPI - Male Genitourinary General Chief complaint: Urogenital-Male Stated complaint: unable to urinate Time Seen by Provider: 02/26/23 12:10 History of Present Illness HPI Narrative: Patient is a 67-year-old male with a history of diabetes, hypertension, psoriatic arthritis CKD presenting with urination problems. Patient states that for the last week he has had decreased urinary output and has been having difficulties urinating. States that he has not been able to urinate at all over the last 36 hours though he feels like he needs to. States that he had intermittent fevers earlier this week after being exposed to his grandson who had pinkeye and eurg-pwkv-fas-mouth disease. Reports chronic cough but no new chest pain or shortness of breath. Ports nausea and intermittent dry heaving. States he has been unable to tolerate much p.o. intake at all. He had outpatient labs drawn yesterday but his doctor is off this weekend so he has not received a call about them. No further complaints. Related Data Home Medications Medication Instructions Recorded Confirmed adalimumab 40 mg/0.8 mL 40 mg subcut .EVERY 10 DAYS 06/12/19 02/26/23 subcutaneous pen kit (Humira Pen) folic acid 1 mg tablet 1 mg PO DAILY 06/12/19 02/26/23 methotrexate sodium 2.5 mg tablet 5 mg PO WEEKLY 01/14/21 02/26/23 empagliflozin 25 mg tablet 25 mg PO DAILY 02/26/23 02/26/23 (Jardiance) lisinopril 40 mg tablet 40 mg PO Q12H 02/26/23 02/26/23 Allergies Allergy/AdvReac Type Severity Reaction Status Date / Time Siberian ginseng Allergy Mild HIVES Verified 12/15/22 06:45 hummus Allergy Intermediate Swelling Uncoded 12/15/22 06:45 green tea Allergy Other Uncoded 12/15/22 06:45 Review of Systems Review of Systems: All systems reviewed & are unremarkable except as noted in HPI and below PMFSH Past Medical History Medical History Chronic kidney disease, stage 3b Diabetes mellitus Hyperlipidemia Hypertension Hypothyroidism Psoriatic arthritis Type 2 diabetes mellitus Surgical History Surgical History Total knee replacement status Family History Family History Father Hypertension Social History Social History Social History: Surrogate medical decision maker: Nilsa Frazier, spouse. Code status: Full code. Smoking status: Former smoker Tobacco type: cigars Smoking end date: 07/19/19 Alcohol intake: current Drinks per week: 8 Substance use: never Substance use type: does not use Lack of Transportation: No Lack of Food: Never True Current Housing: I Have Housing Concerned About Future Housing: No Difficulty Paying Gas/Electric Bills: No Difficulty Paying for Meds: No Currently Unemployed: No Education: High School Diploma/GED Difficulty w/ Childcare or Family Care: No Living arrangements: with family Spiritual care concerns: Yes (L[employer]) Agree to blood products: Yes Exam Narrative: GENERAL: Nontoxic, no acute distress, pleasant and cooperative HEAD: Normocephalic, atraumatic. EYES: PERRLA and EOMI. ENT: Mucous membranes dry NECK: Supple. CHEST: Clear to auscultation. No respiratory distress. HEART: Regular rate and rhythm. ABDOMEN: Soft, + suprapubic tenderness, no guarding or rebound EXTREMITIES: Normal range of motion. No edema. SKIN: Warm, dry, no rash. NEURO: Alert and oriented x3. PSYCH: Normal mood and affect. Course Vital Signs Vital signs: Vital Signs Temperature 98.3 F 02/26/23 12:03 Pulse Rate 100 02/26/23 12:03 Respiratory Rate 16 02/26/23 12:03 Blood Pressure 127/86 02/26/23 12:03 Pulse Oximetry 100 02/26/23 12:03 Oxygen Delivery Room Air 02/26/23 12:03 Temperature 97.2 F L 03/04/23 05:57 Pulse Rate 64 03/04/23 05:57 Respi
[2023-02-26 13:13] LABS: Appearance Urine Slightly Cloudy (Clear); Bilirubin Urine Negative (Negative); Blood Urine 3+ (Negative); Color Urine Yellow (Yellow); Glucose Urine UA 2+ mg/dL (Negative); Ketones Urine Negative (Negative); Leukocyte Esterase Ur 1+ LEU/UL (Negative); Nitrate Urine Negative (Negative); Protein Urine 2+ mg/dL (Negative); Urobilinogen Urine 0.2 mg/dL (<2.0); pH Urine 5.5 (5.0-9.0)
[2023-02-26] MEDS: SODIUM CHLORIDE 0.9% IV 1,000 ML 999 ML IV CONT ×2 (13:19→13:20)
--- NOTE | 2023-02-26 13:30 | PC.NURSE ---
Pt to CT scan via stretcher at this time. NS infusing.
[2023-02-26 13:33] LABS: Add Urine Microscopic? YES
[2023-02-26 13:50] LABS: Bacteria Urine 1+ /hpf; Hyaline Casts Urine Present /lpf; Need Manual Microscopic Reviewed; RBC Urine 21-50 /hpf (0-2); Squamous Epithelial Cell Urine Few /hpf (Few); WBC Clumps Urine Present /HPF; WBC Urine >100 /hpf
[2023-02-26 13:51] LABS: Lipase 566 U/L (23-300); Magnesium 2.7 mg/dL (1.6-2.3); Phosphorus 6.5 mg/dL (2.5-4.5)
[2023-02-26 13:55] LABS: INR 1.1; Prothrombin Time 14.9 Seconds (11.1-14.7)
[2023-02-26 13:56] LABS: Partial Thromboplastin Time 30.9 SECONDS (22.3-36.8)
[2023-02-26] MEDS: cefTRIAXone 2 GM/NS 100 ML 2 GM/100 ML BAG IVPB (14:07)
[2023-02-26 14:35] LABS: Influenza A QL RT-PCR Negative (Negative); Influenza B QL RT-PCR Negative (Negative); SARS-CoV-2 RNA PCR Negative (Negative)
[2023-02-26] MEDS: LORazepam INJ (*CRX) 2 MG/ML VIAL 0.5 MG IV PUSH (14:50)
[2023-02-26 15:10] LABS: Creatine Kinase 1309 U/L (55-170)
[2023-02-26 15:30] LABS: Strep Group A RT-PCR NOT DETECTED (Negative)
--- NOTE | 2023-02-26 16:50 | PM.IMHP ---
H&P: HPI History of Present Illness Date/Time: 02/26/23 18:00 Chief Complaint: Decreased urine output. Narrative: This is a pleasant 67-year-old gentleman with chronic kidney disease stage IIIB, hypertension, hyperlipidemia, type 2 diabetes mellitus, and psoriatic arthritis who presented to the emergency department from home for evaluation of decreased urine output. The patient provides the following history. He has not been feeling well since last Tuesday afternoon when he developed a fever not long after taoism with a reported T max of 104? F. Other than generalized malaise and poor appetite, he did not have any specific symptoms. The following day he had nausea and dry heaves and he had an episode where he became confused and near syncopal which he attributes to an episode of hypoglycemia. Several times on Tuesday he had near syncopal episodes due to weakness and dizziness and he thinks he may have lost consciousness when going to the bathroom but he cannot say for sure. Appetite remains poor. He has recently developed some mild dysuria and has noticed that his urine output has dropped off significantly. He spoke with his primary care provider on Tuesday about his symptoms and he made an appointment with [facility] yesterday for a urinalysis and lab work. Due to ongoing symptoms he decided to come in today for evaluation. While in the ED his lab results from [facility] came back showing that his creatinine was significantly elevated from baseline. Again he has not had much in the way of urine output and he is not retaining urine. No recent change in medications nor have any new medications been introduced. No NSAID use. He has been afebrile for couple of days. No headache, neck ache, sinus congestion, sore throat, cough, vomiting, or diarrhea. He has not noticed any rashes or joint swelling or pain. He has not had any injuries, traumas, heat exposure, or falls with prolonged down time. In the ED: He was afebrile on arrival. Blood pressures have been stable and well within normal limits. Labs were significant for a WBC count of 13.3 with 14% bands noted on manual differential, sodium 125, potassium 4.8, chloride 91, carbon dioxide 8, anion gap 26, BUN 118, creatinine 14.6, glucose 195, phosphorus 6.5, magnesium 2.7, calcium 8.5, total bilirubin 1.6, AST 617, ALT 496, complex face 256, total CK 1309, lipase 566. UA showed 2+ protein, 2+ glucose, 3+ blood, 1+ leukocyte esterase, 21 to 50 RBC, greater than 100 WBC, WBC clumps, 1+ bacteria, and [address] of the abdomen and pelvis showed no acute process. Minimal atelectasis noted at the lung bases on chest x-ray. Strep screen was negative. He received 1 g of ceftriaxone for UTI and 2 L normal saline bolus and he is being admitted in this setting for further workup in nephrology consultation. Review of Systems Review of Systems: Twelve systems were reviewed and are negative except for as per HPI. [facility] Past Medical History Medical History Chronic kidney disease, stage 3b Diabetes mellitus Hyperlipidemia Hypertension Hypothyroidism Psoriatic arthritis Type 2 diabetes mellitus Surgical History Surgical History (Updated 02/26/23 @ 22:28 by Soha Bradley PA-C) Total knee replacement status Family History Family History Father Hypertension Social History Social History (Updated 02/26/23 @ 22:28 by Soha Bradley PA-C) Social History: Surrogate medical decision maker: Nilsa Frazier, spouse. Code status: Full code. Smoking status: Former smoker Tobacco type: cigars Smoking end date: 07/19/19 Alcohol intake: current Drinks per week: 8 Substance use: never Substance use type: does not use Lack of Transportation: No Lack of Food: Never True Current Housing: I Have Housing Concerned About Future Housing: No Difficulty Paying Gas/Electric Bills: No
[2023-02-26 17:09] LABS: Glucose Point of Care 186 mg/dl (65-105)
[2023-02-26 17:51] LABS: Alveolar/Arterial O2 Gradient 31.1 mmHg; Carboxyhemoglobin 0.2 % THb (0-2.0); Fractional Inspired Oxygen 21 %; HCO3 ABG 10.8 mEq/l (22.0-26.0); Methemoglobin ABG 0.2 %THb (0-1.5); Oxygen Content ABG 16.5 %vol (16.0-22.0); Oxygen Saturation ABG 97.5 % (95.0-100.0); Oxyhemoglobin 96.4 % THb (90.0-100.0); PO2 ABG 96.5 mmHg (80.0-100.0); Reduced Hemoglobin 3.2 %THb (0-5.0); Total Hemoglobin 12.1 g/dL (12.0-18.0); pH ABG 7.384 (7.350-7.450)
[2023-02-26 17:52] LABS: Device ROOM AIR; Modified Allen's Test Pass; PCO2 ABG 18.5 mmHg (35.0-45.0); Site Drawn RIGHT RADIAL
[2023-02-26 18:30] LABS: Hemoglobin A1C 6.9 % (<5.7)
[2023-02-26 18:39] LABS: Albumin Level 3.3 g/dL (3.5-5.1); Anion Gap 20 mmol/L (8-16); CRP 8.3 mg/dL (<1.0); Calcium 7.7 mg/dL (8.4-10.2); Carbon Dioxide 10 mmol/L (22-30); Chloride 95 mmol/L (98-107); Glucose 191 mg/dL (65-110); Magnesium 2.6 mg/dL (1.6-2.3); Potassium 4.8 mmol/L (3.4-5.0); Sodium 125 mmol/L (137-145)
[2023-02-26 18:42] LABS: Erythrocyte Sedimentation Rate 114 mm/hr (0-20)
[2023-02-26 18:44] LABS: Blood Urea Nitrogen 120 mg/dL (9-20); Estimated CRCL calculation 5 ml/min; Estimated Glomerular Filt Rate 3
[2023-02-26 18:45] LABS: Lactate Dehydrogenase 970 U/L (120-246)
[2023-02-26 18:46] LABS: Complement C3 108 mg/dL (88-165)
[2023-02-26 19:20] LABS: HIV 1/2 Ab P24 Ag Result Negative (Negative)
[2023-02-26 19:35] LABS: Hepatitis B Surface Antigen Negative (Negative)
[2023-02-26 19:40] LABS: Hepatitis B Core IgM Result Negative (Negative)
[2023-02-26] MEDS: SODIUM BICARBONATE 8.4% 150 MEQ in WATER, STERILE FOR INJECTION 950 ML 100 MEQ IV CONT (19:47)
[2023-02-26 19:52] LABS: Hepatitis B Surface Anti Res Negative; Hepatitis C Virus Antibody Negative (Negative)
[2023-02-26 20:17] LABS: Glucose Point of Care 213 mg/dl (65-105)
[2023-02-26] MEDS: INSULIN ASPART (*BKC) 100 UNITS/ML SUB-Q (20:20)
[2023-02-26 21:59] LABS: Creatinine Urine 43.5 mg/dL; Total Protein Urine Random 183 mg/dL; Ur Ttl Prot Creatinine Ratio 4.21 mg/mg (0-0.20)
[2023-02-26 22:02] LABS: Potassium Urine Random 18.5 meq/L; Sodium Urine Random 85 meq/L
[2023-02-26 22:25] LABS: Eosinophil Urine None Seen % (None Seen); Urine Eos QC 2nd Tech Confirmed
[2023-02-27] VITALS (9 sets, daily range): BP systolic 118–146; BP diastolic 58–69; PULSE 60–73; RESP 18–22; TEMP 36.5–36.8; O2SAT 98–100
--- NOTE | 2023-02-27 04:07 | PC.NURSE ---
Notified Dr Oleary that patients output from the beginnging of the shift was 140ml, new orders were recieved to increase fluids to 125l/hr
[2023-02-27] MEDS: SODIUM BICARBONATE 8.4% 150 MEQ in WATER, STERILE FOR INJECTION 950 ML 125 MEQ IV CONT ×3 (05:35→23:57)
[2023-02-27 06:59] LABS: Hematocrit 31.5 % (42.0-52.0); Hemoglobin 11.2 g/dL (14.0-18.0); Mean Corpuscular HGB Conc 35.6 g/dl (32-36); Mean Corpuscular Hemoglobin 30.9 pg (26-34); Mean Platelet Volume 11.1 fl (7.4-10.4); Platelet Count Result 167 k/mm3 (150-375); Red Blood Count 3.62 M/mm3 (4.6-6.20); Red Cell Distribution Width 14.4 % (11.5-14.5); White Blood Count 10.9 K/mm3 (4.5-10.0)
[2023-02-27 07:31] LABS: Alanine Aminotransferase 320 U/L (6-50); Albumin Level 2.8 g/dL (3.5-5.1); Alkaline Phosphatase 179 U/L (38-126); Anion Gap 19 mmol/L (8-16); Aspartate Amino Transferase 315 U/L (17-59); Bilirubin,Total 0.9 mg/dL (0.2-1.3); Calcium 7.2 mg/dL (8.4-10.2); Carbon Dioxide 13 mmol/L (22-30); Chloride 95 mmol/L (98-107); Creatine Kinase 1035 U/L (55-170); Estimated CRCL calculation 4 ml/min; Estimated Glomerular Filt Rate 3; Glucose 118 mg/dL (65-110); Magnesium 2.5 mg/dL (1.6-2.3); Phosphorus 6.5 mg/dL (2.5-4.5); Potassium 4.2 mmol/L (3.4-5.0); Sodium 127 mmol/L (137-145)
[2023-02-27 07:44] LABS: Blood Urea Nitrogen 127 mg/dL (9-20)
[2023-02-27 07:53] LABS: Glucose Point of Care 108 mg/dl (65-105)
--- NOTE | 2023-02-27 09:50 | PM.CNNEP ---
Assessment and Plan Assessment and plan (1) Acute on chronic renal failure: Code(s): N17.9 - Acute kidney failure, unspecified; N18.9 - Chronic kidney disease, unspecified Status: Acute Assessment and Plan: The patient has chronic kidney disease. This is likely due to hypertension and diabetes. His baseline creatinine runs between 1.5 and 1.9. The patient has superimposed acute kidney injury. By history it sounds like he probably has dehydration because he was not eating and drinking very well. He also continued to take lisinopril which can exaggerated the rise in creatinine due to dehydration. He had fevers and so could have some sort of infection. His urinalysis does show some activity so he could have a UTI. He has had blood and urine cultures done and he is on antibiotics. There other causes of renal failure as well. He had an ultrasound which has ruled out obstruction. the patient does have psoriatic arthritis and so is at higher risk of having other autoimmune diseases; therefore he could have some sort of a glomerulonephritis. However with the high fever any exposure to infection from his grandson, it is a little less likely. In addition if he does have infection then I would not want to give him high-dose steroids. Since he is making urine with the IV fluids sounds like he is responding to the current therapy. So at this point will continue the IV fluids and antibiotics. We can wait for cultures to come back. If the urine output does not continue to improve and the renal function is not improving and if cultures are negative then I think we could try stress dose steroids and consider biopsy. we discussed dialysis. His numbers are very high but since his urine output is up and he starting respond to fluid I think we could wait and see if his numbers start to get better since he does not really have any symptoms of uremia at this point (2) Type 2 diabetes mellitus: Code(s): E11.9 - Type 2 diabetes mellitus without complications Status: Acute Assessment and Plan: the patient has diabetes. He is on insulin sliding scale. Hospitalists will manage this. (3) Hypertension: Code(s): I10 - Essential (primary) hypertension Status: Acute Assessment and Plan: His blood pressure is under good control (4) Transaminitis: Code(s): R74.01 - Elevation of levels of liver transaminase levels Status: Acute Assessment and Plan: liver enzymes are little high and the CPK is a little high as well. This all may be due to the infection. (5) Abnormal urinalysis: Code(s): R82.90 - Unspecified abnormal findings in urine Status: Acute Assessment and Plan: His urine has blood, protein, glucose, red cells, and white cells. Cultures are pending. He is on antibiotics. (6) Metabolic acidosis: Code(s): E87.20 - Acidosis, unspecified Status: Acute Assessment and Plan: Bicarbonate level is low. His anion gap is 19 I would expect an anion gap of about 10. His lactic acid is okay. Most likely this is due to the renal insufficiency. He is on a bicarb drip History of Present Illness Reason for Consult Consult date: 02/27/23 Chief Complaint Chief complaint: Acute Renal Failure History of Present Illness Narrative: Didier is a very pleasant 67-year-old gentleman who has multiple medical problems including a history of chronic kidney disease with a baseline creatinine of around 1.5-1.9, hypertension, diabetes, psoriatic arthritis, who was in his usual state of health until about a week ago. He had been taking care of his grandson who had pink eye and this turned in to hand foot and mouth disease. Starting last weekend the patient started running fevers and poor appetite with malaise. The patient had fevers as high as 104. Later on in the week his fevers came down to about 102. He noted that he last made urine
[2023-02-27 11:29] LABS: Glucose Point of Care 148 mg/dl (65-105)
--- NOTE | 2023-02-27 12:34 | P.PNIM_ITS ---
Progress Note: A&P Assessment and Plan (1) Acute on chronic renal failure: Code(s): N17.9 - Acute kidney failure, unspecified; N18.9 - Chronic kidney disease, unspecified Status: Acute Assessment and Plan: 02/26/2023: Followed by Dr. Monroy for chronic kidney disease stage IIIB thought to be related to hypertension and diabetes. Creatinine in November was 1.66 and is 14.60 today! Etiology unclear. Seems to be more of a nephritic picture with rapid onset, a significant decrease in urine output, uremia, hematuria, and mild proteinuria. Could be drug related. He was recently exposed to grandson with viral type symptoms (strep screen negative today). Likely a component of dehydration as well given poor oral intake the last 5 days. * [place] catheter has been placed to monitor strict I/O. * Renal ultrasound is pending. * Serum and urine immunofixation this summer were reportedly unremarkable. Multiple labs and urine studies ordered. * Hold lisinopril, sitagliptin, and empagliflozin. * He has been started on a bicarbonate carbonate drip. * Nephrology has been consulted for their expertise. 02/27/2023: * Patient's baseline creatinine ranging between 1.66 to 1.96 * Labs today reveal BUN 127, creatinine 15.0, in the setting of acute on chronic kidney disease * [place] catheter in place and draining * Renal ultrasound revealed nephrolithiasis otherwise unremarkable * CT of abdomen pelvis without contrast did not show any acute abdominopelvic process * Abdominal ultrasound was negative showing normal hepatopetal portal venous flow direct * Immunology panel pending * Nephrology consulted and following patient. Patient sees Dr. Monroy on an outpatient basis and he is the one who came and seen the patient today. Immunology panel was sent on patient and is pending. Patient has psoriatic arthritis and is at higher risk of having an autoimmune component like glomerularnephritis. Nephrology discussed dialysis however will be holding off patient is now responding to IV fluids and making urine. Plan is to continue to trend labs. * Will continue bicarb drip for now and reassess tomorrow. Carbon dioxide level this morning was 13 * Will continue to hold nephrotoxic medication (2) Transaminitis: Code(s): R74.01 - Elevation of levels of liver transaminase levels Status: Acute Assessment and Plan: 02/26/2023: Abdominal exam is benign and CT of the abdomen and pelvis without contrast showed no findings to correlate. In light of the renal failure, a CK was checked and was elevated at 1309. I suppose it is plausible that his CK was higher and is now drifting downwards however he gives no history to suggest a reason for him to have rhabdomyolysis. * Hepatitis studies pending. * Hold adalimumab and rosuvastatin. * Continue to monitor closely. 02/27/2023: * AST 315, ALT 320, alk-phos 179, CK 1035 * Hepatitis panel essentially negative however Hep B core total is still pending * Continue to hold adalimumab and rosuvastatin * Continue to monitor CMP and CK (3) Urinary tract infection: Code(s): N39.0 - Urinary tract infection, site not specified Status: Acute Assessment and Plan: 02/26/23: UA is positive for 1+ leukocyte esterase, greater than 100 WBC, WBC clumps, and 1+ bacteria. * Continue empiric ceftriaxone. * Urine culture pending. 02/27/23: * Patient was given a 1 time dose Rocephin 2 g on 02/26/2023 * Continue with Rocephin 1 g Q 24 hour * Urine culture still pending (4) Metabolic acidosis: Code(s): E87.20 - Acidosis, unspecif
--- NOTE | 2023-02-27 12:34 | PM.IMPN ---
Progress Note: A&P Assessment and Plan (1) Acute on chronic renal failure: Code(s): N17.9 - Acute kidney failure, unspecified; N18.9 - Chronic kidney disease, unspecified Status: Acute Assessment and Plan: 02/26/2023: Followed by Dr. Monroy for chronic kidney disease stage IIIB thought to be related to hypertension and diabetes. Creatinine in November was 1.66 and is 14.60 today! Etiology unclear. Seems to be more of a nephritic picture with rapid onset, a significant decrease in urine output, uremia, hematuria, and mild proteinuria. Could be drug related. He was recently exposed to grandson with viral type symptoms (strep screen negative today). Likely a component of dehydration as well given poor oral intake the last 5 days. [place] catheter has been placed to monitor strict I/O. Renal ultrasound is pending. Serum and urine immunofixation this summer were reportedly unremarkable. Multiple labs and urine studies ordered. Hold lisinopril, sitagliptin, and empagliflozin. He has been started on a bicarbonate carbonate drip. Nephrology has been consulted for their expertise. 02/27/2023: Patient's baseline creatinine ranging between 1.66 to 1.96 Labs today reveal BUN 127, creatinine 15.0, in the setting of acute on chronic kidney disease [place] catheter in place and draining Renal ultrasound revealed nephrolithiasis otherwise unremarkable CT of abdomen pelvis without contrast did not show any acute abdominopelvic process Abdominal ultrasound was negative showing normal hepatopetal portal venous flow direct Immunology panel pending Nephrology consulted and following patient. Patient sees Dr. Monroy on an outpatient basis and he is the one who came and seen the patient today. Immunology panel was sent on patient and is pending. Patient has psoriatic arthritis and is at higher risk of having an autoimmune component like glomerularnephritis. Nephrology discussed dialysis however will be holding off patient is now responding to IV fluids and making urine. Plan is to continue to trend labs. Will continue bicarb drip for now and reassess tomorrow. Carbon dioxide level this morning was 13 Will continue to hold nephrotoxic medication (2) Transaminitis: Code(s): R74.01 - Elevation of levels of liver transaminase levels Status: Acute Assessment and Plan: 02/26/2023: Abdominal exam is benign and CT of the abdomen and pelvis without contrast showed no findings to correlate. In light of the renal failure, a CK was checked and was elevated at 1309. I suppose it is plausible that his CK was higher and is now drifting downwards however he gives no history to suggest a reason for him to have rhabdomyolysis. Hepatitis studies pending. Hold adalimumab and rosuvastatin. Continue to monitor closely. 02/27/2023: AST 315, ALT 320, alk-phos 179, CK 1035 Hepatitis panel essentially negative however Hep B core total is still pending Continue to hold adalimumab and rosuvastatin Continue to monitor CMP and CK (3) Urinary tract infection: Code(s): N39.0 - Urinary tract infection, site not specified Status: Acute Assessment and Plan: 02/26/23: UA is positive for 1+ leukocyte esterase, greater than 100 WBC, WBC clumps, and 1+ bacteria. Continue empiric ceftriaxone. Urine culture pending. 02/27/23: Patient was given a 1 time dose Rocephin 2 g on 02/26/2023 Continue with Rocephin 1 g Q 24 hour Urine culture still pending (4) Metabolic acidosis: Code(s): E87.20 - Acidosis, unspecified Status: Acute Assessment and Plan: 02/26/23: Likely due to the renal failure itself. Sepsis seems less likely. Lactic acid within normal limits. ABG is currently pending (serum carbon dioxide is 8 with an anion gap of 26). He has been started on a bicarbonate drip. Blood and urine cultures are pending. 02/27/23: Serum carbon dioxide currently 13, anion gap 19 We will karen
[2023-02-27 16:34] LABS: Glucose Point of Care 131 mg/dl (65-105)
--- NOTE | 2023-02-27 19:43 | PC.NURSE ---
Patients preliminary blood cultures came back, infroemed Soha of the results, no new orders were recieved
[2023-02-27 20:51] LABS: Glucose Point of Care 105 mg/dl (65-105)
[2023-02-28] VITALS (9 sets, daily range): BP systolic 112–117; BP diastolic 62–64; PULSE 52–75; RESP 16–20; TEMP 36.3–36.4; O2SAT 98–100
--- NOTE | 2023-02-28 05:07 | PC.NURSE ---
Lab called with critical preliminary blood culture results, RN notified Dr Oleary, no new orders recieved
[2023-02-28 07:14] LABS: Basophils Percent Auto 0.3 % (0.2-1.2); Eosinophils Absolute Auto 0.2 K/mm3 (0-0.3); Eosinophils Percent Auto 1.7 % (0-4.4); Hematocrit 31.2 % (42.0-52.0); Hemoglobin 11.6 g/dL (14.0-18.0); Immature Granulocyte Absolute 0.08 K/mm3 (0.00-0.031); Immature Granulocyte Percent A 0.8 % (0-0.5); Lymphocytes Absolute Auto 0.91 K/mm3 (0.9-3.2); Lymphocytes Percent Auto 9.1 % (18.3-44.2); Mean Corpuscular HGB Conc 37.2 g/dl (32-36); Mean Corpuscular Hemoglobin 31.4 pg (26-34); Mean Corpuscular Volume 84.6 fl (80-100); Mean Platelet Volume 11.2 fl (7.4-10.4); Monocytes Absolute Auto 0.6 K/mm3 (0.1-0.6); Neutrophils Absolute Auto 8.2 K/mm3 (1.3-6.7); Neutrophils Percent Auto 82.1 % (45.5-73.1); Platelet Count Result 177 k/mm3 (150-375); Red Blood Count 3.69 M/mm3 (4.6-6.20); Red Cell Distribution Width 13.5 % (11.5-14.5)
[2023-02-28 07:23] LABS: Alanine Aminotransferase 239 U/L (6-50); Albumin Level 2.7 g/dL (3.5-5.1); Alkaline Phosphatase 165 U/L (38-126); Anion Gap 18 mmol/L (8-16); Aspartate Amino Transferase 168 U/L (17-59); Bilirubin,Total 0.9 mg/dL (0.2-1.3); Calcium 6.8 mg/dL (8.4-10.2); Carbon Dioxide 21 mmol/L (22-30); Chloride 86 mmol/L (98-107); Creatine Kinase 552 U/L (55-170); Glucose 100 mg/dL (65-110); Magnesium 2.3 mg/dL (1.6-2.3); Phosphorus 7.6 mg/dL (2.5-4.5); Potassium 3.7 mmol/L (3.4-5.0); Sodium 125 mmol/L (137-145)
--- NOTE | 2023-02-28 07:26 | P.PNIM_ITS ---
Progress Note: A&P Assessment and Plan (1) Acute on chronic renal failure: Code(s): N17.9 - Acute kidney failure, unspecified; N18.9 - Chronic kidney disease, unspecified Status: Acute Assessment and Plan: 02/26/2023: Followed by Dr. Monroy for chronic kidney disease stage IIIB thought to be related to hypertension and diabetes. Creatinine in November was 1.66 and is 14.60 today! Etiology unclear. Seems to be more of a nephritic picture with rapid onset, a significant decrease in urine output, uremia, hematuria, and mild proteinuria. Could be drug related. He was recently exposed to grandson with viral type symptoms (strep screen negative today). Likely a component of dehydration as well given poor oral intake the last 5 days. * [place] catheter has been placed to monitor strict I/O. * Renal ultrasound is pending. * Serum and urine immunofixation this summer were reportedly unremarkable. Multiple labs and urine studies ordered. * Hold lisinopril, sitagliptin, and empagliflozin. * He has been started on a bicarbonate carbonate drip. * Nephrology has been consulted for their expertise. 02/27/2023: * Patient's baseline creatinine ranging between 1.66 to 1.96 * Labs today reveal BUN 127, creatinine 15.0, in the setting of acute on chronic kidney disease * [place] catheter in place and draining * Renal ultrasound revealed nephrolithiasis otherwise unremarkable * CT of abdomen pelvis without contrast did not show any acute abdominopelvic process * Abdominal ultrasound was negative showing normal hepatopetal portal venous flow direct * Immunology panel pending * Nephrology consulted and following patient. Patient sees Dr. Monroy on an outpatient basis and he is the one who came and seen the patient today. Immunology panel was sent on patient and is pending. Patient has psoriatic arthritis and is at higher risk of having an autoimmune component like glomerulonephritis. Nephrology discussed dialysis however will be holding off patient is now responding to IV fluids and making urine. Plan is to continue to trend labs. * Will continue bicarb drip for now and reassess tomorrow. Carbon dioxide level this morning was 13 * Will continue to hold nephrotoxic medication 02/28/2023: * BUN 40, creatinine 15.3, HCO3 21, sodium 125, chloride 80, CK 552 and downward trending * Patient does not appear to be uremic at this time * Nephrology consulted and following closely as his condition is guarded * Continue with [place] catheter to monitor for strict I&O, patient is making clear, yellow urine * Urine culture positive for Serratia marcescens * Blood culture obtained and showing gram negative bacilli in one vial, staphylococcus epidermidis in another vial. * Patient currently on 1 g of Rocephin, discussed with pharmacist and we will increase to 2 g of of Rocephin. (2) Transaminitis: Code(s): R74.01 - Elevation of levels of liver transaminase levels Status: Acute Assessment and Plan: 02/26/2023: Abdominal exam is benign and CT of the abdomen and pelvis without contrast showed no findings to correlate. In light of the renal failure, a CK was checked and was elevated at 1309. I suppose it is plausible that his CK was higher and is now drifting downwards however he gives no history to suggest a reason for him to have rhabdomyolysis. * Hepatitis studies pending. * Hold adalimumab and rosuvastatin. * Continue to monitor closely. 02/27/2023: * AST 315, ALT 320, alk-phos 179 * Hepatitis panel essentially negative however Hep B core total is still pending * Continue to hold adalimumab and rosuvastatin * Des
--- NOTE | 2023-02-28 07:26 | PM.IMPN ---
Progress Note: A&P Assessment and Plan (1) Acute on chronic renal failure: Code(s): N17.9 - Acute kidney failure, unspecified; N18.9 - Chronic kidney disease, unspecified Status: Acute Assessment and Plan: 02/26/2023: Followed by Dr. Monroy for chronic kidney disease stage IIIB thought to be related to hypertension and diabetes. Creatinine in November was 1.66 and is 14.60 today! Etiology unclear. Seems to be more of a nephritic picture with rapid onset, a significant decrease in urine output, uremia, hematuria, and mild proteinuria. Could be drug related. He was recently exposed to grandson with viral type symptoms (strep screen negative today). Likely a component of dehydration as well given poor oral intake the last 5 days. [place] catheter has been placed to monitor strict I/O. Renal ultrasound is pending. Serum and urine immunofixation this summer were reportedly unremarkable. Multiple labs and urine studies ordered. Hold lisinopril, sitagliptin, and empagliflozin. He has been started on a bicarbonate carbonate drip. Nephrology has been consulted for their expertise. 02/27/2023: Patient's baseline creatinine ranging between 1.66 to 1.96 Labs today reveal BUN 127, creatinine 15.0, in the setting of acute on chronic kidney disease [place] catheter in place and draining Renal ultrasound revealed nephrolithiasis otherwise unremarkable CT of abdomen pelvis without contrast did not show any acute abdominopelvic process Abdominal ultrasound was negative showing normal hepatopetal portal venous flow direct Immunology panel pending Nephrology consulted and following patient. Patient sees Dr. Monroy on an outpatient basis and he is the one who came and seen the patient today. Immunology panel was sent on patient and is pending. Patient has psoriatic arthritis and is at higher risk of having an autoimmune component like glomerulonephritis. Nephrology discussed dialysis however will be holding off patient is now responding to IV fluids and making urine. Plan is to continue to trend labs. Will continue bicarb drip for now and reassess tomorrow. Carbon dioxide level this morning was 13 Will continue to hold nephrotoxic medication 02/28/2023: BUN 40, creatinine 15.3, HCO3 21, sodium 125, chloride 80, CK 552 and downward trending Patient does not appear to be uremic at this time Nephrology consulted and following closely as his condition is guarded Continue with [place] catheter to monitor for strict I&O, patient is making clear, yellow urine Urine culture positive for Serratia marcescens Blood culture obtained and showing gram negative bacilli in one vial, staphylococcus epidermidis in another vial. Patient currently on 1 g of Rocephin, discussed with pharmacist and we will increase to 2 g of of Rocephin. (2) Transaminitis: Code(s): R74.01 - Elevation of levels of liver transaminase levels Status: Acute Assessment and Plan: 02/26/2023: Abdominal exam is benign and CT of the abdomen and pelvis without contrast showed no findings to correlate. In light of the renal failure, a CK was checked and was elevated at 1309. I suppose it is plausible that his CK was higher and is now drifting downwards however he gives no history to suggest a reason for him to have rhabdomyolysis. Hepatitis studies pending. Hold adalimumab and rosuvastatin. Continue to monitor closely. 02/27/2023: AST 315, ALT 320, alk-phos 179 Hepatitis panel essentially negative however Hep B core total is still pending Continue to hold adalimumab and rosuvastatin Continue to monitor CMP and CK 02/28/2023: Liver enzymes trending down today, AST 168,ALT 239 Continue to hold above medications Continue to monitor CMP (3) Urinary tract infection: Code(s): N39.0 - Urinary tract infection, site not specified Status: Acute Assessment and Plan: 02/26/23: UA is positive for 1+ leukocyte esterase, greater than
[2023-02-28 07:29] LABS: Estimated CRCL calculation 4 ml/min; Estimated Glomerular Filt Rate 3
[2023-02-28 07:42] LABS: Glucose Point of Care 93 mg/dl (65-105)
[2023-02-28 07:46] LABS: Blood Urea Nitrogen 140 mg/dL (9-20)
[2023-02-28] MEDS: SODIUM BICARBONATE 8.4% 150 MEQ in WATER, STERILE FOR INJECTION 950 ML 125 MEQ IV CONT ×2 (09:03→17:58)
--- NOTE | 2023-02-28 10:32 | P.PNNP_ITS ---
Progress Note: A&P Assessment and Plan (1) CALLI (acute kidney injury): Code(s): N17.9 - Acute kidney failure, unspecified Status: Acute Assessment and Plan: * no real significant improvement noted * evaluation to date noted: * urine electrolytes non-prerenal * urine eosinophils negative * CPK mildly elevated but coming down * proteinuria noted * renal ultrasound w/o obstruction * suspect ATN from infection/sepsis (+ blood/urine culture noted) * would hold off on steroids or renal biopsy in this setting * however, he still remains at high risk for DIGITAL MEDIA ASSOCIATE/dialysis * improving urine output and no critical electrolytes but his BUN is quite high * follow trend of repeat labs and UOP (2) Chronic kidney disease, stage 3b: Code(s): N18.32 - Chronic kidney disease, stage 3b Status: Chronic Assessment and Plan: * baseline creatinine runs ~ 1.6 - 2.0mg/dl in the last year * due to hypertension and diabetes (based on outpatient evaluation) (3) Sepsis: Code(s): A41.9 - Sepsis, unspecified organism Status: Acute Assessment and Plan: * blood culture with Serratia marcescens and Staphylococcus epidermidis * urine culture with gram negative bacilli * on antibiotics * complicated by immunosuppression (on Humira and methotrexate) * follow repeat cultures * follow hemodynamics closely (4) Metabolic acidosis: Code(s): E87.20 - Acidosis, unspecified Status: Acute Assessment and Plan: * due to CALLI/ARF and infection * on bicarbonate gtt to compensate * follow CO2 levels (5) Hypertension: Code(s): I10 - Essential (primary) hypertension Status: Chronic Assessment and Plan: * reasonable control at this time * lisinopril on hold * follow trend of hemodynamics (6) Type 2 diabetes mellitus: Code(s): E11.9 - Type 2 diabetes mellitus without complications Status: Chronic Assessment and Plan: * follow accu-cheks * glycemic control per hospitalists Long and extensive discussion (> 20 minutes) with patient and his daughter at bedside regarding the above issues and current treatment plan. They are both aware that he is at risk for DIGITAL MEDIA ASSOCIATE/hemodialysis depending on the trend of his electrolytes, volume status, uremic toxins...etc. Will continue to follow. Subjective Date/time seen: 02/28/23 10:32 Interval history: Follow-up for acute kidney injury/acute renal failure on chronic kidney disease. The patient states he feels significantly better and his daughter at bedside agrees that he looks better as well; better urine output noted as well; unfortunately, his renal function has not really improved despite conservative therapy. Exam Narrative: General: WD/WN male in NAD Heart: normal S1 and S2; no rub Lungs: clear to auscultation Abdomen: soft, nontender, nondistended, positive bowel sounds Extremities: no cyanosis or clubbing; no edema Skin: warm and dry Objective Data Vital Signs Vital Signs: Vital Signs Temp Pulse Resp BP Pulse Ox O2 Del Method 02/28/23 08:02 53 L 02/28/23 09:03 Room Air 02/28/23 04:00 53 L 02/28/23 05:39 97.6 F 52 L 20 112/62 99 02/28/23 00:00 52 L 02/27/23 21:42 60 02/27/23 22:00 98.2 F 63 22 H 146/58 H 99 02/27/23 16:00 71
--- NOTE | 2023-02-28 10:32 | PM.PNNEP ---
Progress Note: A&P Assessment and Plan (1) CALLI (acute kidney injury): Code(s): N17.9 - Acute kidney failure, unspecified Status: Acute Assessment and Plan: no real significant improvement noted evaluation to date noted: urine electrolytes non-prerenal urine eosinophils negative CPK mildly elevated but coming down proteinuria noted renal ultrasound w/o obstruction suspect ATN from infection/sepsis (+ blood/urine culture noted) would hold off on steroids or renal biopsy in this setting however, he still remains at high risk for DISPATCH OFFICER/dialysis improving urine output and no critical electrolytes but his BUN is quite high follow trend of repeat labs and UOP (2) Chronic kidney disease, stage 3b: Code(s): N18.32 - Chronic kidney disease, stage 3b Status: Chronic Assessment and Plan: baseline creatinine runs ~ 1.6 - 2.0mg/dl in the last year due to hypertension and diabetes (based on outpatient evaluation) (3) Sepsis: Code(s): A41.9 - Sepsis, unspecified organism Status: Acute Assessment and Plan: blood culture with Serratia marcescens and Staphylococcus epidermidis urine culture with gram negative bacilli on antibiotics complicated by immunosuppression (on Humira and methotrexate) follow repeat cultures follow hemodynamics closely (4) Metabolic acidosis: Code(s): E87.20 - Acidosis, unspecified Status: Acute Assessment and Plan: due to CALLI/ARF and infection on bicarbonate gtt to compensate follow CO2 levels (5) Hypertension: Code(s): I10 - Essential (primary) hypertension Status: Chronic Assessment and Plan: reasonable control at this time lisinopril on hold follow trend of hemodynamics (6) Type 2 diabetes mellitus: Code(s): E11.9 - Type 2 diabetes mellitus without complications Status: Chronic Assessment and Plan: follow accu-cheks glycemic control per hospitalists Long and extensive discussion (> 20 minutes) with patient and his daughter at bedside regarding the above issues and current treatment plan. They are both aware that he is at risk for DISPATCH OFFICER/hemodialysis depending on the trend of his electrolytes, volume status, uremic toxins...etc. Will continue to follow. Subjective Date/time seen: 02/28/23 10:32 Interval history: Follow-up for acute kidney injury/acute renal failure on chronic kidney disease. The patient states he feels significantly better and his daughter at bedside agrees that he looks better as well; better urine output noted as well; unfortunately, his renal function has not really improved despite conservative therapy. Exam Narrative: General: WD/WN male in NAD Heart: normal S1 and S2; no rub Lungs: clear to auscultation Abdomen: soft, nontender, nondistended, positive bowel sounds Extremities: no cyanosis or clubbing; no edema Skin: warm and dry Objective Data Vital Signs Vital Signs: Vital Signs Temp Pulse Resp BP Pulse Ox O2 Del Method 02/28/23 08:02 53 L 02/28/23 09:03 Room Air 02/28/23 04:00 53 L 02/28/23 05:39 97.6 F 52 L 20 112/62 99 02/28/23 00:00 52 L 02/27/23 21:42 60 02/27/23 22:00 98.2 F 63 22 H 146/58 H 99 02/27/23 16:00 71 02/27/23 14:00 97.7 F 62 18 125/69 100 02/27/23 12:00 73 Intake/Output Intake/Output: Intake & Output 02/25/23 02/26/23 02/27/23 02/28/23 23:59 23:59 23:59 23:59 Intake Total 2320 3690 1615 Output Total 70 575 Balance 2250 3115 1615 Meds/Results Medications: Active Medications Generic Name Dose Route Start Last Admin Trade Name Freq PRN Reason Stop Dose Admin Dextrose 12.5 gm 02/26/23 17:14 Dextrose 50% 25 Gm/50 Ml Syringe IV PUSH PRN PRN Hypoglycemia Protocol Glucagon 1 mg 02/26/23 17:14 Glucagon For Inj 1 Mg Vial IM PRN PRN Hypoglycemia
[2023-02-28 11:44] LABS: Glucose Point of Care 124 mg/dl (65-105)
[2023-02-28] MEDS: cefTRIAXone 2 GM/NS 100 ML 2 GM/100 ML BAG IVPB (12:10)
--- NOTE | 2023-02-28 13:33 | PC.NURSE ---
Pt is A&O4 male who has participated and contributed in plan of care. Pt denies any pain and expresses no needs at this time. Pt abx change to stronger dose, pt tolerating well. Pt continues had family at bedside. Pt educated on importance of getting up and out of bed. Pt states he will get out of bed at dinner time and sit in the chair. Pt jimenez continued, foely is patent and draining. Urine is clear and yellow. Will continue to monitor pt.
[2023-02-28 16:34] LABS: Glucose Point of Care 194 mg/dl (65-105)
--- NOTE | 2023-02-28 17:34 | PCCCNOTE ---
green house manager from [facility] called to leave information on contacting her when working on DC needs. She is will to help with our case packer and sealer to set up for pt needs at dc. [place] [facility] Cat phone [phone]
[2023-02-28 21:32] LABS: Glucose Point of Care 165 mg/dl (65-105)
[2023-03-01] VITALS (9 sets, daily range): BP systolic 119–127; BP diastolic 65–75; PULSE 60–74; RESP 14–18; TEMP 36.2–36.5; O2SAT 98–100
[2023-03-01] MEDS: SODIUM CHLORIDE 0.9% IV 1,000 ML 75 ML IV CONT ×2 (01:00→15:30)
[2023-03-01 06:26] LABS: Basophils Percent Auto 0.3 % (0.2-1.2); Eosinophils Absolute Auto 0.3 K/mm3 (0-0.3); Eosinophils Percent Auto 3.7 % (0-4.4); Hematocrit 29.2 % (42.0-52.0); Hemoglobin 10.6 g/dL (14.0-18.0); Immature Granulocyte Absolute 0.05 K/mm3 (0.00-0.031); Immature Granulocyte Percent A 0.7 % (0-0.5); Lymphocytes Absolute Auto 1.15 K/mm3 (0.9-3.2); Mean Corpuscular HGB Conc 36.3 g/dl (32-36); Mean Corpuscular Hemoglobin 30.9 pg (26-34); Mean Corpuscular Volume 85.1 fl (80-100); Mean Platelet Volume 11.3 fl (7.4-10.4); Monocytes Absolute Auto 0.4 K/mm3 (0.1-0.6); Monocytes Percent Auto 5.3 % (2.6-8.5); Neutrophils Absolute Auto 5.8 K/mm3 (1.3-6.7); Platelet Count Result 185 k/mm3 (150-375); Red Blood Count 3.43 M/mm3 (4.6-6.20); Red Cell Distribution Width 13.3 % (11.5-14.5); White Blood Count 7.7 K/mm3 (4.5-10.0)
[2023-03-01 06:46] LABS: Alanine Aminotransferase 166 U/L (6-50); Albumin Level 2.5 g/dL (3.5-5.1); Alkaline Phosphatase 135 U/L (38-126); Anion Gap 16 mmol/L (8-16); Aspartate Amino Transferase 89 U/L (17-59); Bilirubin,Total 0.8 mg/dL (0.2-1.3); Blood Urea Nitrogen > 120 mg/dL (9-20); Calcium 6.2 mg/dL (8.4-10.2); Carbon Dioxide 28 mmol/L (22-30); Chloride 80 mmol/L (98-107); Glucose 109 mg/dL (65-110); Potassium 3.5 mmol/L (3.4-5.0); Sodium 124 mmol/L (137-145)
[2023-03-01 06:52] LABS: Estimated CRCL calculation 5 ml/min; Estimated Glomerular Filt Rate 3
[2023-03-01 07:29] LABS: Glucose Point of Care 120 mg/dl (65-105)
--- NOTE | 2023-03-01 07:50 | P.PNIM_ITS ---
Progress Note: A&P Assessment and Plan (1) Acute on chronic renal failure: Code(s): N17.9 - Acute kidney failure, unspecified; N18.9 - Chronic kidney disease, unspecified Status: Acute Assessment and Plan: 02/26/2023: Followed by Dr. Monroy for chronic kidney disease stage IIIB thought to be related to hypertension and diabetes. Creatinine in November was 1.66 and is 14.60 today! Etiology unclear. Seems to be more of a nephritic picture with rapid onset, a significant decrease in urine output, uremia, hematuria, and mild proteinuria. Could be drug related. He was recently exposed to grandson with viral type symptoms (strep screen negative today). Likely a component of dehydration as well given poor oral intake the last 5 days. * [place] catheter has been placed to monitor strict I/O. * Renal ultrasound is pending. * Serum and urine immunofixation this summer were reportedly unremarkable. Multiple labs and urine studies ordered. * Hold lisinopril, sitagliptin, and empagliflozin. * He has been started on a bicarbonate carbonate drip. * Nephrology has been consulted for their expertise. 02/27/2023: * Patient's baseline creatinine ranging between 1.66 to 1.96 * Labs today reveal BUN 127, creatinine 15.0, in the setting of acute on chronic kidney disease * [place] catheter in place and draining * Renal ultrasound revealed nephrolithiasis otherwise unremarkable * CT of abdomen pelvis without contrast did not show any acute abdominopelvic process * Abdominal ultrasound was negative showing normal hepatopetal portal venous flow direct * Immunology panel pending * Nephrology consulted and following patient. Patient sees Dr. Monroy on an outpatient basis and he is the one who came and seen the patient today. Immunology panel was sent on patient and is pending. Patient has psoriatic arthritis and is at higher risk of having an autoimmune component like glomerulonephritis. Nephrology discussed dialysis however will be holding off patient is now responding to IV fluids and making urine. Plan is to continue to trend labs. * Will continue bicarb drip for now and reassess tomorrow. Carbon dioxide level this morning was 13 * Will continue to hold nephrotoxic medication 02/28/2023: * BUN 40, creatinine 15.3, HCO3 21, sodium 125, chloride 80, CK 552 and downward trending * Patient does not appear to be uremic at this time * Nephrology consulted and following closely as his condition is guarded * Continue with [place] catheter to monitor for strict I&O, patient is making clear, yellow urine * Urine culture positive for Serratia marcescens * Blood culture obtained and showing gram negative bacilli in one vial, staphylococcus epidermidis in another vial. * Patient currently on 1 g of Rocephin, discussed with pharmacist and we will increase to 2 g of of Rocephin. 03/01/23: * BUN greater than 120, creatinine 15.7, HC03 28, sodium 124, chloride 80 * Nephrology following patient closely, bicarb infusion discontinued, he is not uremic * Patient urine output overnight was 1450ml, clear, yellow urine * Continue to trend labs * Continue Rocephin 2 g IV * Continue with [place] catheter and monitor for strict I&O (2) Transaminitis: Code(s): R74.01 - Elevation of levels of liver transaminase levels Status: Acute Assessment and Plan: 02/26/2023: Abdominal exam is benign and CT of the abdomen and pelvis without contrast showed no findings to correlate. In light of the renal failure, a CK was checked and was elevated at 1309. I suppose it is plausible that his CK was higher and is now drifting downwards however he give
--- NOTE | 2023-03-01 07:50 | PM.IMPN ---
Progress Note: A&P Assessment and Plan (1) Acute on chronic renal failure: Code(s): N17.9 - Acute kidney failure, unspecified; N18.9 - Chronic kidney disease, unspecified Status: Acute Assessment and Plan: 02/26/2023: Followed by Dr. Monroy for chronic kidney disease stage IIIB thought to be related to hypertension and diabetes. Creatinine in November was 1.66 and is 14.60 today! Etiology unclear. Seems to be more of a nephritic picture with rapid onset, a significant decrease in urine output, uremia, hematuria, and mild proteinuria. Could be drug related. He was recently exposed to grandson with viral type symptoms (strep screen negative today). Likely a component of dehydration as well given poor oral intake the last 5 days. [place] catheter has been placed to monitor strict I/O. Renal ultrasound is pending. Serum and urine immunofixation this summer were reportedly unremarkable. Multiple labs and urine studies ordered. Hold lisinopril, sitagliptin, and empagliflozin. He has been started on a bicarbonate carbonate drip. Nephrology has been consulted for their expertise. 02/27/2023: Patient's baseline creatinine ranging between 1.66 to 1.96 Labs today reveal BUN 127, creatinine 15.0, in the setting of acute on chronic kidney disease [place] catheter in place and draining Renal ultrasound revealed nephrolithiasis otherwise unremarkable CT of abdomen pelvis without contrast did not show any acute abdominopelvic process Abdominal ultrasound was negative showing normal hepatopetal portal venous flow direct Immunology panel pending Nephrology consulted and following patient. Patient sees Dr. Monroy on an outpatient basis and he is the one who came and seen the patient today. Immunology panel was sent on patient and is pending. Patient has psoriatic arthritis and is at higher risk of having an autoimmune component like glomerulonephritis. Nephrology discussed dialysis however will be holding off patient is now responding to IV fluids and making urine. Plan is to continue to trend labs. Will continue bicarb drip for now and reassess tomorrow. Carbon dioxide level this morning was 13 Will continue to hold nephrotoxic medication 02/28/2023: BUN 40, creatinine 15.3, HCO3 21, sodium 125, chloride 80, CK 552 and downward trending Patient does not appear to be uremic at this time Nephrology consulted and following closely as his condition is guarded Continue with [place] catheter to monitor for strict I&O, patient is making clear, yellow urine Urine culture positive for Serratia marcescens Blood culture obtained and showing gram negative bacilli in one vial, staphylococcus epidermidis in another vial. Patient currently on 1 g of Rocephin, discussed with pharmacist and we will increase to 2 g of of Rocephin. 03/01/23: BUN greater than 120, creatinine 15.7, HC03 28, sodium 124, chloride 80 Nephrology following patient closely, bicarb infusion discontinued, he is not uremic Patient urine output overnight was 1450ml, clear, yellow urine Continue to trend labs Continue Rocephin 2 g IV Continue with [place] catheter and monitor for strict I&O (2) Transaminitis: Code(s): R74.01 - Elevation of levels of liver transaminase levels Status: Acute Assessment and Plan: 02/26/2023: Abdominal exam is benign and CT of the abdomen and pelvis without contrast showed no findings to correlate. In light of the renal failure, a CK was checked and was elevated at 1309. I suppose it is plausible that his CK was higher and is now drifting downwards however he gives no history to suggest a reason for him to have rhabdomyolysis. Hepatitis studies pending. Hold adalimumab and rosuvastatin. Continue to monitor closely. 02/27/2023: AST 315, ALT 320, alk-phos 179 Hepatitis panel essentially negative however Hep B core total is still pending Continue to hold adalimumab and rosuvastatin Continue to monitor CMP and CK
--- NOTE | 2023-03-01 09:00 | P.PNNP_ITS ---
Progress Note: A&P Assessment and Plan (1) CALLI (acute kidney injury): Code(s): N17.9 - Acute kidney failure, unspecified Status: Acute Assessment and Plan: * no real significant improvement noted (but no worse either) * evaluation to date noted: * urine electrolytes non-prerenal * urine eosinophils negative * CPK mildly elevated but coming down * proteinuria noted * renal ultrasound w/o obstruction * suspect ATN from infection/sepsis (+ blood/urine culture noted) * would hold off on steroids or renal biopsy in this setting * however, he still remains at high risk for HOME SERVICE DIRECTOR/dialysis * improving urine output and no critical electrolytes but his BUN is quite high * follow trend of repeat labs and UOP (2) Chronic kidney disease, stage 3b: Code(s): N18.32 - Chronic kidney disease, stage 3b Status: Chronic Assessment and Plan: * baseline creatinine runs ~ 1.6 - 2.0mg/dl in the last year * due to hypertension and diabetes (based on outpatient evaluation) (3) Sepsis: Code(s): A41.9 - Sepsis, unspecified organism Status: Acute Assessment and Plan: * blood culture with Serratia marcescens and Staphylococcus epidermidis * urine culture with gram negative bacilli * on antibiotics * complicated by immunosuppression (on Humira and methotrexate) * follow repeat cultures * follow hemodynamics closely (4) Metabolic acidosis: Code(s): E87.20 - Acidosis, unspecified Status: Acute Assessment and Plan: * due to CALLI/ARF and infection * was on bicarbonate gtt to compensate - currently off * follow CO2 levels (5) Hypertension: Code(s): I10 - Essential (primary) hypertension Status: Chronic Assessment and Plan: * reasonable control at this time * lisinopril on hold * follow trend of hemodynamics (6) Type 2 diabetes mellitus: Code(s): E11.9 - Type 2 diabetes mellitus without complications Status: Chronic Assessment and Plan: * follow accu-cheks * glycemic control per hospitalists Will continue to follow. Subjective Date/time seen: 03/01/23 09:00 Interval history: Follow-up for acute kidney injury/acute renal failure on chronic kidney disease. In spite of no significant change in renal function by AM labs, he continues to feel reasonably well; increase in urine output noted in the last 24 hours as well; no apparent distress noted; no other issues/events overnight or earlier this morning; discussed with daughter and son-in-law at bedside. Exam Narrative: General: WD/WN male in NAD Heart: normal S1 and S2; no rub Lungs: clear to auscultation Abdomen: soft, nontender, nondistended, positive bowel sounds Extremities: no cyanosis or clubbing; no edema Skin: warm and intact Objective Data Vital Signs Vital Signs: Vital Signs Temp Pulse Resp BP Pulse Ox 03/01/23 06:00 97.1 F L 60 18 123/65 98 03/01/23 04:00 62 03/01/23 00:00 62 02/28/23 20:00 75 02/28/23 20:38 97.4 F L 71 18 114/62 100 02/28/23 16:02 67 02/28/23 12:03 72 02/28/23 14:00 97.5 F L 63 16 117/64 98 Intake/Output Intake/Output: Intake & Output 02/26/23 02/27/23 02/28/23 03/01/23 23:59 23:59 23:59 23:59
--- NOTE | 2023-03-01 09:00 | PM.PNNEP ---
Progress Note: A&P Assessment and Plan (1) CLALI (acute kidney injury): Code(s): N17.9 - Acute kidney failure, unspecified Status: Acute Assessment and Plan: no real significant improvement noted (but no worse either) evaluation to date noted: urine electrolytes non-prerenal urine eosinophils negative CPK mildly elevated but coming down proteinuria noted renal ultrasound w/o obstruction suspect ATN from infection/sepsis (+ blood/urine culture noted) would hold off on steroids or renal biopsy in this setting however, he still remains at high risk for TEST SKEIN WINDER/dialysis improving urine output and no critical electrolytes but his BUN is quite high follow trend of repeat labs and UOP (2) Chronic kidney disease, stage 3b: Code(s): N18.32 - Chronic kidney disease, stage 3b Status: Chronic Assessment and Plan: baseline creatinine runs ~ 1.6 - 2.0mg/dl in the last year due to hypertension and diabetes (based on outpatient evaluation) (3) Sepsis: Code(s): A41.9 - Sepsis, unspecified organism Status: Acute Assessment and Plan: blood culture with Serratia marcescens and Staphylococcus epidermidis urine culture with gram negative bacilli on antibiotics complicated by immunosuppression (on Humira and methotrexate) follow repeat cultures follow hemodynamics closely (4) Metabolic acidosis: Code(s): E87.20 - Acidosis, unspecified Status: Acute Assessment and Plan: due to CALLI/ARF and infection was on bicarbonate gtt to compensate - currently off follow CO2 levels (5) Hypertension: Code(s): I10 - Essential (primary) hypertension Status: Chronic Assessment and Plan: reasonable control at this time lisinopril on hold follow trend of hemodynamics (6) Type 2 diabetes mellitus: Code(s): E11.9 - Type 2 diabetes mellitus without complications Status: Chronic Assessment and Plan: follow accu-cheks glycemic control per hospitalists Will continue to follow. Subjective Date/time seen: 03/01/23 09:00 Interval history: Follow-up for acute kidney injury/acute renal failure on chronic kidney disease. In spite of no significant change in renal function by AM labs, he continues to feel reasonably well; increase in urine output noted in the last 24 hours as well; no apparent distress noted; no other issues/events overnight or earlier this morning; discussed with daughter and son-in-law at bedside. Exam Narrative: General: WD/WN male in NAD Heart: normal S1 and S2; no rub Lungs: clear to auscultation Abdomen: soft, nontender, nondistended, positive bowel sounds Extremities: no cyanosis or clubbing; no edema Skin: warm and intact Objective Data Vital Signs Vital Signs: Vital Signs Temp Pulse Resp BP Pulse Ox 03/01/23 06:00 97.1 F L 60 18 123/65 98 03/01/23 04:00 62 03/01/23 00:00 62 02/28/23 20:00 75 02/28/23 20:38 97.4 F L 71 18 114/62 100 02/28/23 16:02 67 02/28/23 12:03 72 02/28/23 14:00 97.5 F L 63 16 117/64 98 Intake/Output Intake/Output: Intake & Output 02/26/23 02/27/23 02/28/23 03/01/23 23:59 23:59 23:59 23:59 Intake Total 2320 3690 3195 1540 Output Total 70 575 725 950 Balance 2250 3115 2470 590 Meds/Results Medications: Active Medications Generic Name Dose Route Start Last Admin Trade Name Freq PRN Reason Stop Dose Admin Dextrose 12.5 gm 02/26/23 17:14 Dextrose 50% 25 Gm/50 Ml Syringe IV PUSH PRN PRN Hypoglycemia Protocol Glucagon 1 mg 02/26/23 17:14 Glucagon For Inj 1 Mg Vial IM PRN PRN Hypoglycemia Protocol Glucose 15 gm 02/26/23 17:14 Glucose Oral Gel 15 Gm Of Glucse In 37.5 Gm Tube PO PRN PRN Hypoglycemia Protocol Dextrose 1,000 mls @ 100 mls/hr 02/26/23 17:14 Dextrose 5% 1,000 Ml IVPB PRN PRN Hy
[2023-03-01 11:31] LABS: Glucose Point of Care 122 mg/dl (65-105)
[2023-03-01] MEDS: cefTRIAXone 2 GM/NS 100 ML 2 GM/100 ML BAG IVPB (12:07)
[2023-03-01 15:14] LABS: Hepatitis B Core Ab Total Nonreactive (Nonreactive)
[2023-03-01 16:13] LABS: Glucose Point of Care 121 mg/dl (65-105)
[2023-03-01 17:17] LABS: Complement Total CH50 65 U/mL (31-60)
[2023-03-01 20:11] LABS: Osmolality, Urine 310 mOsm/kg (50-1200)
[2023-03-01 22:27] LABS: Glucose Point of Care 111 mg/dl (65-105)
[2023-03-02] VITALS (11 sets, daily range): BP systolic 112–125; BP diastolic 48–67; PULSE 60–70; RESP 14–17; TEMP 35.9–36.2; O2SAT 97–99
[2023-03-02 02:48] LABS: Anti Glomerular Basement Memb <1.0 AI (<1.0)
[2023-03-02] MEDS: SODIUM CHLORIDE 0.9% IV 1,000 ML 75 ML IV CONT (04:00)
[2023-03-02 06:51] LABS: Basophils Percent Auto 0.2 % (0.2-1.2); Eosinophils Absolute Auto 0.3 K/mm3 (0-0.3); Hematocrit 30.9 % (42.0-52.0); Hemoglobin 10.7 g/dL (14.0-18.0); Immature Granulocyte Absolute 0.07 K/mm3 (0.00-0.031); Immature Granulocyte Percent A 0.8 % (0-0.5); Lymphocytes Absolute Auto 1.05 K/mm3 (0.9-3.2); Lymphocytes Percent Auto 11.9 % (18.3-44.2); Mean Corpuscular HGB Conc 34.6 g/dl (32-36); Mean Corpuscular Hemoglobin 30.5 pg (26-34); Mean Platelet Volume 11.4 fl (7.4-10.4); Monocytes Absolute Auto 0.4 K/mm3 (0.1-0.6); Monocytes Percent Auto 4.3 % (2.6-8.5); Neutrophils Absolute Auto 7.1 K/mm3 (1.3-6.7); Neutrophils Percent Auto 79.8 % (45.5-73.1); Platelet Count Result 209 k/mm3 (150-375); Red Blood Count 3.51 M/mm3 (4.6-6.20); Red Cell Distribution Width 14.1 % (11.5-14.5); White Blood Count 8.9 K/mm3 (4.5-10.0)
[2023-03-02 07:02] LABS: SM Antibody <1.0; SM/RNP Antibody <1.0
[2023-03-02 07:08] LABS: Alanine Aminotransferase 136 U/L (6-50); Albumin Level 2.8 g/dL (3.5-5.1); Alkaline Phosphatase 135 U/L (38-126); Anion Gap 20 mmol/L (8-16); Aspartate Amino Transferase 65 U/L (17-59); Bilirubin,Total 0.8 mg/dL (0.2-1.3); Calcium 6.1 mg/dL (8.4-10.2); Carbon Dioxide 22 mmol/L (22-30); Chloride 82 mmol/L (98-107); Glucose 86 mg/dL (65-110); Potassium 3.3 mmol/L (3.4-5.0); Sodium 124 mmol/L (137-145)
[2023-03-02 07:13] LABS: Estimated CRCL calculation 4 ml/min; Estimated Glomerular Filt Rate 3
[2023-03-02 07:17] LABS: Blood Urea Nitrogen 137 mg/dL (9-20)
[2023-03-02 07:44] LABS: Glucose Point of Care 83 mg/dl (65-105)
[2023-03-02 09:42] LABS: Anti Streptolysin O Screen 61 IU/mL (<200)
[2023-03-02 11:20] LABS: Glucose Point of Care 82 mg/dl (65-105)
[2023-03-02] MEDS: cefTRIAXone 2 GM/NS 100 ML 2 GM/100 ML BAG IVPB (12:20)
--- NOTE | 2023-03-02 13:03 | PC.NURSE ---
On 03/02/23, the student, [Elaine Elizondo ], provided care and completed [facility] documentation on this patient. I have reviewed the student's documentation and agree with the findings.
--- NOTE | 2023-03-02 13:48 | P.PNNP_ITS ---
Progress Note: A&P Assessment and Plan (1) CALLI (acute kidney injury): Code(s): N17.9 - Acute kidney failure, unspecified Status: Acute Assessment and Plan: * no real significant improvement noted (but no worse either) * evaluation to date noted: * urine electrolytes non-prerenal * urine eosinophils negative * CPK mildly elevated but coming down * proteinuria noted * renal ultrasound w/o obstruction * suspect ATN from infection/sepsis (+ blood/urine culture noted) * would hold off on steroids or renal biopsy in this setting * however, he still remains at high risk for SHOOK SPLICER/dialysis * no critical electrolytes, acidosis, volume overload or evidence of uremia; hence, no urgent reason for dialysis * improving urine output noted * follow trend of repeat labs and UOP (2) Chronic kidney disease, stage 3b: Code(s): N18.32 - Chronic kidney disease, stage 3b Status: Chronic Assessment and Plan: * baseline creatinine runs ~ 1.6 - 2.0mg/dl in the last year * due to hypertension and diabetes (based on outpatient evaluation) (3) Sepsis: Code(s): A41.9 - Sepsis, unspecified organism Status: Acute Assessment and Plan: * blood culture with Serratia marcescens and Staphylococcus epidermidis * urine culture with gram negative bacilli * on antibiotics * complicated by immunosuppression (on Humira and methotrexate) * follow repeat cultures * follow hemodynamics closely (4) Metabolic acidosis: Code(s): E87.20 - Acidosis, unspecified Status: Acute Assessment and Plan: * due to CALLI/ARF and infection * was on bicarbonate gtt to compensate - currently off * may need oral sodium bicarb tabs * follow CO2 levels (5) Hypertension: Code(s): I10 - Essential (primary) hypertension Status: Chronic Assessment and Plan: * reasonable control at this time * lisinopril on hold * follow trend of hemodynamics (6) Type 2 diabetes mellitus: Code(s): E11.9 - Type 2 diabetes mellitus without complications Status: Chronic Assessment and Plan: * follow accu-cheks * glycemic control per hospitalists Will continue to follow. Subjective Date/time seen: 03/02/23 13:48 Interval history: Follow-up for acute kidney injury/acute renal failure on chronic kidney disease. Appears to be doing reasonably well; in spite of his elevated BUN + creatinine/significant CALLI/ARF, he continues to make good urine output; denies any nausea, vomiting, poor appetite, metallic taste, confusion (or any other symptoms suggestive of uremia); hates the food here and is asking permission for his family to bring some outside food. Exam Narrative: General: WD/WN male in NAD Heart: normal S1 and S2; no rub Lungs: clear to auscultation Abdomen: soft, nontender, nondistended, positive bowel sounds Extremities: no cyanosis or clubbing; no edema Skin: no rash Objective Data Vital Signs Vital Signs: Vital Signs Temp Pulse Resp BP Pulse Ox O2 Del Method 03/02/23 13:40 96.9 F L 67 14 125/67 99 03/02/23 12:03 70 03/02/23 08:00 68 03/02/23 08:00 Room Air 03/02/23 09:52 98 Room Air 03/02/23 06:10 96.7 F L 70 16 97 03/02/23 06:13 112/48 L 03/02/23 04:00 63 03/02/23 00:00 60
--- NOTE | 2023-03-02 13:48 | PM.PNNEP ---
Progress Note: A&P Assessment and Plan (1) CALLI (acute kidney injury): Code(s): N17.9 - Acute kidney failure, unspecified Status: Acute Assessment and Plan: no real significant improvement noted (but no worse either) evaluation to date noted: urine electrolytes non-prerenal urine eosinophils negative CPK mildly elevated but coming down proteinuria noted renal ultrasound w/o obstruction suspect ATN from infection/sepsis (+ blood/urine culture noted) would hold off on steroids or renal biopsy in this setting however, he still remains at high risk for SYSTEMS ANALYST/dialysis no critical electrolytes, acidosis, volume overload or evidence of uremia; hence, no urgent reason for dialysis improving urine output noted follow trend of repeat labs and UOP (2) Chronic kidney disease, stage 3b: Code(s): N18.32 - Chronic kidney disease, stage 3b Status: Chronic Assessment and Plan: baseline creatinine runs ~ 1.6 - 2.0mg/dl in the last year due to hypertension and diabetes (based on outpatient evaluation) (3) Sepsis: Code(s): A41.9 - Sepsis, unspecified organism Status: Acute Assessment and Plan: blood culture with Serratia marcescens and Staphylococcus epidermidis urine culture with gram negative bacilli on antibiotics complicated by immunosuppression (on Humira and methotrexate) follow repeat cultures follow hemodynamics closely (4) Metabolic acidosis: Code(s): E87.20 - Acidosis, unspecified Status: Acute Assessment and Plan: due to CALLI/ARF and infection was on bicarbonate gtt to compensate - currently off may need oral sodium bicarb tabs follow CO2 levels (5) Hypertension: Code(s): I10 - Essential (primary) hypertension Status: Chronic Assessment and Plan: reasonable control at this time lisinopril on hold follow trend of hemodynamics (6) Type 2 diabetes mellitus: Code(s): E11.9 - Type 2 diabetes mellitus without complications Status: Chronic Assessment and Plan: follow accu-cheks glycemic control per hospitalists Will continue to follow. Subjective Date/time seen: 03/02/23 13:48 Interval history: Follow-up for acute kidney injury/acute renal failure on chronic kidney disease. Appears to be doing reasonably well; in spite of his elevated BUN + creatinine/significant CALLI/ARF, he continues to make good urine output; denies any nausea, vomiting, poor appetite, metallic taste, confusion (or any other symptoms suggestive of uremia); hates the food here and is asking permission for his family to bring some outside food. Exam Narrative: General: WD/WN male in NAD Heart: normal S1 and S2; no rub Lungs: clear to auscultation Abdomen: soft, nontender, nondistended, positive bowel sounds Extremities: no cyanosis or clubbing; no edema Skin: no rash Objective Data Vital Signs Vital Signs: Vital Signs Temp Pulse Resp BP Pulse Ox O2 Del Method 03/02/23 13:40 96.9 F L 67 14 125/67 99 03/02/23 12:03 70 03/02/23 08:00 68 03/02/23 08:00 Room Air 03/02/23 09:52 98 Room Air 03/02/23 06:10 96.7 F L 70 16 97 03/02/23 06:13 112/48 L 03/02/23 04:00 63 03/02/23 00:00 60 03/01/23 20:00 67 03/01/23 22:00 97.2 F L 63 18 127/69 98 Intake/Output Intake/Output: Intake & Output 02/27/23 02/28/23 03/01/23 03/02/23 23:59 23:59 23:59 23:59 Intake Total 3690 3295 2980 1440 Output Total 760 553 8191 2250 Balance 3115 2570 805 -810 Meds/Results Medications: Active Medications Generic Name Dose Route Start Last Admin Trade Name Freq PRN Reason Stop Dose Admin Dextrose 12.5 gm 02/26/23 17:14 Dextrose 50% 25 Gm/50 Ml Syringe IV PUSH PRN PRN Hypoglycemia Protocol Glucagon 1 mg 02/26/23 17:14 Glucagon For Inj 1 Mg Vial IM PRN PRN Hypoglycemia
--- NOTE | 2023-03-02 15:47 | PC.NURSE ---
Pt is A&O4 male who has participated and contributed in plan of care. Pt denies any pain and expresses no needs at this time. Pt has been up in chair most of the day. Pt tolerates ambulation well. Will continue to monitor pt.
--- NOTE | 2023-03-02 15:53 | P.PNIM_ITS ---
Progress Note: A&P Assessment and Plan (1) Acute on chronic renal failure: Code(s): N17.9 - Acute kidney failure, unspecified; N18.9 - Chronic kidney disease, unspecified Status: Acute Assessment and Plan: Followed by Dr. Monroy for chronic kidney disease stage IIIB thought to be related to hypertension and diabetes. Creatinine in November was 1.66. Creatinine on admission 14.6. Etiology unclear. * [place] catheter has been placed to monitor strict I/O. * Renal ultrasound revealed nephrolithiasis otherwise unremarkable * Started on a bicarbonate carbonate drip and discontinued on 03/01 * Nephrology has been consulted for their expertise. * Nephrotoxic medications on hold. (2) Transaminitis: Code(s): R74.01 - Elevation of levels of liver transaminase levels Status: Acute Assessment and Plan: Abdominal exam is benign and CT of the abdomen and pelvis without contrast showed no findings to correlate. In light of the renal failure, a CK was checked and was elevated at 1309. I suppose it is plausible that his CK was higher and is now drifting downwards however he gives no history to suggest a reason for him to have rhabdomyolysis. * Hepatitis studies Negative * Hold adalimumab and rosuvastatin. * Continue to monitor closely. * liver enzymes trending down (3) Urinary tract infection: Code(s): N39.0 - Urinary tract infection, site not specified Status: Acute Assessment and Plan: UA is positive for 1+ leukocyte esterase, greater than 100 WBC, WBC clumps, and 1+ bacteria. * Continue empiric ceftriaxone. * Urine culture positive for Serratia marcescens * Blood cultures positive for Serratia marcescens * Rocephin increased to 2 g on 03/01/2023 (4) Metabolic acidosis: Code(s): E87.20 - Acidosis, unspecified Status: Acute Assessment and Plan: Likely due to the renal failure itself. Sepsis seems less likely. Lactic acid within normal limits. * ABG showing carbon dioxide 13 with an anion gap of 19 on admission. * He has been started on a bicarbonate drip and was then discontinued once bicab increased to 28. (5) Electrolyte abnormality: Code(s): E87.8 - Other disorders of electrolyte and fluid balance, not elsewhere classified Status: Acute Assessment and Plan: * Sodium 124, chloride 82, potassium 3.3. * Continue to trend labs (6) Type 2 diabetes mellitus: Code(s): E11.9 - Type 2 diabetes mellitus without complications Status: Chronic Assessment and Plan: * Sitagliptin and empagliflozin on hold given acute kidney injury. * Initiate sliding scale insulin, Accu-Cheks, and hypoglycemic protocol. * Hemoglobin A1c is 6.9 * DM educator consult. (7) Hypertension: Code(s): I10 - Essential (primary) hypertension Status: Chronic Assessment and Plan: Blood pressures were reviewed and they have been stable, would expect them to be higher with nephritis. * Lisinopril on hold given acute kidney injury. * Continue to monitor blood pressures closely. Subjective Date/time seen: 03/02/23 15:53 Interval history: Patient doing well today and continues to produce urine. He denies any current pain. He does appear to be overly drowsy but otherwise doing well. His urine appears clear and with good output. Exam Narrative: GENERAL: Comfortable, no acute distress KENNEDY
--- NOTE | 2023-03-02 15:53 | PM.IMPN ---
Progress Note: A&P Assessment and Plan (1) Acute on chronic renal failure: Code(s): N17.9 - Acute kidney failure, unspecified; N18.9 - Chronic kidney disease, unspecified Status: Acute Assessment and Plan: Followed by Dr. Monroy for chronic kidney disease stage IIIB thought to be related to hypertension and diabetes. Creatinine in November was 1.66. Creatinine on admission 14.6. Etiology unclear. [place] catheter has been placed to monitor strict I/O. Renal ultrasound revealed nephrolithiasis otherwise unremarkable Started on a bicarbonate carbonate drip and discontinued on 03/01 Nephrology has been consulted for their expertise. Nephrotoxic medications on hold. (2) Transaminitis: Code(s): R74.01 - Elevation of levels of liver transaminase levels Status: Acute Assessment and Plan: Abdominal exam is benign and CT of the abdomen and pelvis without contrast showed no findings to correlate. In light of the renal failure, a CK was checked and was elevated at 1309. I suppose it is plausible that his CK was higher and is now drifting downwards however he gives no history to suggest a reason for him to have rhabdomyolysis. Hepatitis studies Negative Hold adalimumab and rosuvastatin. Continue to monitor closely. liver enzymes trending down (3) Urinary tract infection: Code(s): N39.0 - Urinary tract infection, site not specified Status: Acute Assessment and Plan: UA is positive for 1+ leukocyte esterase, greater than 100 WBC, WBC clumps, and 1+ bacteria. Continue empiric ceftriaxone. Urine culture positive for Serratia marcescens Blood cultures positive for Serratia marcescens Rocephin increased to 2 g on 03/01/2023 (4) Metabolic acidosis: Code(s): E87.20 - Acidosis, unspecified Status: Acute Assessment and Plan: Likely due to the renal failure itself. Sepsis seems less likely. Lactic acid within normal limits. ABG showing carbon dioxide 13 with an anion gap of 19 on admission. He has been started on a bicarbonate drip and was then discontinued once bicab increased to 28. (5) Electrolyte abnormality: Code(s): E87.8 - Other disorders of electrolyte and fluid balance, not elsewhere classified Status: Acute Assessment and Plan: Sodium 124, chloride 82, potassium 3.3. Continue to trend labs (6) Type 2 diabetes mellitus: Code(s): E11.9 - Type 2 diabetes mellitus without complications Status: Chronic Assessment and Plan: Sitagliptin and empagliflozin on hold given acute kidney injury. Initiate sliding scale insulin, Accu-Cheks, and hypoglycemic protocol. Hemoglobin A1c is 6.9 DM educator consult. (7) Hypertension: Code(s): I10 - Essential (primary) hypertension Status: Chronic Assessment and Plan: Blood pressures were reviewed and they have been stable, would expect them to be higher with nephritis. Lisinopril on hold given acute kidney injury. Continue to monitor blood pressures closely. Subjective Date/time seen: 03/02/23 15:53 Interval history: Patient doing well today and continues to produce urine. He denies any current pain. He does appear to be overly drowsy but otherwise doing well. His urine appears clear and with good output. Exam Narrative: GENERAL: Comfortable, no acute distress HENMT: moist mucous membranes EYES: EOM intact b/l NECK: no lymphadenopathy RESPIRATORY: clear to auscultation CARDIO: RRR GI: soft, nontender, bowel sounds present : Urinary catheter patent draining clear light colored urine SKIN: no rashes, uremic salguero appearance EXTREMITIES: no edema, redness or tenderness Objective Data Vital Signs Vital Signs: Vital Signs - 24 hr 03/01/23 16:01 03/01/23 22:00 03/01/23 20:00 Temperature 97.2 F L Pulse Rate 62 63 67 Respiratory Rate 18 Blood Pressure 127/69
[2023-03-02 16:33] LABS: Glucose Point of Care 111 mg/dl (65-105)
[2023-03-02 20:09] LABS: Chloride Rand Ur 76 mmol/L (32-290); Chloride/Creatinine Rand Ur 165 (23-275); Creatinine Random Urine 46 mg/dL (20-320)
[2023-03-02 20:13] LABS: Strep DNASE B Antibody <95 U/mL (<301)
[2023-03-02 20:39] LABS: Glucose Point of Care 115 mg/dl (65-105)
[2023-03-03] VITALS (9 sets, daily range): BP systolic 115–135; BP diastolic 59–74; PULSE 55–68; RESP 14–18; TEMP 36.2–36.7; O2SAT 97–98; BMI 30.7
[2023-03-03 06:58] LABS: Basophils Percent Auto 0.2 % (0.2-1.2); Eosinophils Absolute Auto 0.3 K/mm3 (0-0.3); Eosinophils Percent Auto 2.9 % (0-4.4); Hematocrit 29.2 % (42.0-52.0); Hemoglobin 10.1 g/dL (14.0-18.0); Immature Granulocyte Absolute 0.07 K/mm3 (0.00-0.031); Immature Granulocyte Percent A 0.8 % (0-0.5); Lymphocytes Absolute Auto 0.65 K/mm3 (0.9-3.2); Lymphocytes Percent Auto 7.2 % (18.3-44.2); Mean Corpuscular HGB Conc 34.6 g/dl (32-36); Mean Corpuscular Hemoglobin 30.6 pg (26-34); Mean Corpuscular Volume 88.5 fl (80-100); Mean Platelet Volume 11.2 fl (7.4-10.4); Monocytes Absolute Auto 0.4 K/mm3 (0.1-0.6); Monocytes Percent Auto 3.9 % (2.6-8.5); Neutrophils Absolute Auto 7.7 K/mm3 (1.3-6.7); Platelet Count Result 207 k/mm3 (150-375); Red Cell Distribution Width 13.7 % (11.5-14.5)
[2023-03-03 07:20] LABS: Alanine Aminotransferase 110 U/L (6-50); Albumin Level 2.6 g/dL (3.5-5.1); Alkaline Phosphatase 110 U/L (38-126); Anion Gap 22 mmol/L (8-16); Aspartate Amino Transferase 55 U/L (17-59); Bilirubin,Total 0.7 mg/dL (0.2-1.3); Calcium 5.8 mg/dL (8.4-10.2); Carbon Dioxide 16 mmol/L (22-30); Chloride 87 mmol/L (98-107); Glucose 77 mg/dL (65-110); Potassium 3.4 mmol/L (3.4-5.0); Sodium 125 mmol/L (137-145)
[2023-03-03 07:30] LABS: Estimated CRCL calculation 5 ml/min; Estimated Glomerular Filt Rate 3
[2023-03-03 07:36] LABS: Blood Urea Nitrogen 135 mg/dL (9-20)
[2023-03-03 07:49] LABS: Glucose Point of Care 80 mg/dl (65-105)
[2023-03-03] MEDS: SODIUM CHLORIDE 0.9% IV 1,000 ML 75 ML IV CONT (08:47)
[2023-03-03 10:27] LABS: ANCA Screen Negative (Negative)
[2023-03-03 11:25] LABS: Glucose Point of Care 78 mg/dl (65-105)
[2023-03-03] MEDS: cefTRIAXone 2 GM/NS 100 ML 2 GM/100 ML BAG IVPB (11:27)
[2023-03-03] MEDS: SODIUM BICARBONATE TAB 650 MG TABLET 1300 MG PO ×2 (11:28→16:36)
--- NOTE | 2023-03-03 12:00 | PM.PNNEP ---
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 no critical electrolytes, acidosis, volume overload or evidence of uremia; hence, no urgent reason for dialysis good urine output noted follow trend of repeat labs and UOP (2) Chronic kidney disease, stage 3b: Code(s): N18.32 - Chronic kidney disease, stage 3b Status: Chronic Assessment and Plan: baseline creatinine runs ~ 1.6 - 2.0mg/dl in the last year due to hypertension and diabetes (based on outpatient evaluation) (3) Sepsis: Code(s): A41.9 - Sepsis, unspecified organism Status: Acute Assessment and Plan: blood culture with Serratia marcescens and Staphylococcus epidermidis urine culture with Serratia marcescens on antibiotics complicated by immunosuppression (on Humira and methotrexate) follow repeat cultures follow hemodynamics closely (4) Metabolic acidosis: Code(s): E87.20 - Acidosis, unspecified Status: Acute Assessment and Plan: due to CALLI/ARF and infection was on bicarbonate gtt to compensate - currently off on oral sodium bicarb tabs follow CO2 levels (5) Hypertension: Code(s): I10 - Essential (primary) hypertension Status: Chronic Assessment and Plan: reasonable control at this time lisinopril on hold follow trend of hemodynamics (6) Type 2 diabetes mellitus: Code(s): E11.9 - Type 2 diabetes mellitus without complications Status: Chronic Assessment and Plan: follow accu-cheks glycemic control per hospitalists Will continue to follow. Subjective Date/time seen: 03/03/23 12:00 Interval history: Follow-up for acute kidney injury/acute renal failure on chronic kidney disease. Continues to do reasonably well -- good urine output noted although still no significant improvement noted with BUN and creatinine (but no worse either); denies nausea, vomiting, confusion, or any other uremic symptoms; no apparent distress noted. Exam Narrative: General: WD/WN male in NAD Heart: normal S1 and S2; no rub Lungs: clear to auscultation Abdomen: soft, nontender, nondistended, positive bowel sounds Extremities: no cyanosis or clubbing; no edema Skin: no nodules Objective Data Vital Signs Vital Signs: Vital Signs Temp Pulse Resp BP Pulse Ox O2 Del Method 03/03/23 12:00 98.0 F 66 18 128/74 98 03/03/23 08:00 63 03/03/23 08:00 Room Air 03/03/23 05:45 97.6 F 61 18 115/59 L 98 03/03/23 04:00 55 L 03/03/23 00:00 57 L 03/02/23 20:00 60 03/02/23 20:41 97.2 F L 61 17 120/67 98 Intake/Output Intake/Output: Intake & Output 02/28/23 03/01/23 03/02/23 03/03/23 23:59 23:59 23:59 23:59 Intake Total 3295 2980 2540 100 Output Total 725 2175 2250 1550 Balance 2570 805 290 -1450 Meds/Results Medications: Active Medications Generic Name Dose Route Start Last Admin Trade Name Freq PRN Reason Stop Dose Admin Dextrose 12.5 gm 02/26/23 17:14 Dextrose 50% 25 Gm/50 Ml Syringe IV PUSH PRN PRN Hypoglycemia Protocol Glucagon 1 mg 02/26/23 17:14 Glucagon For Inj 1 Mg Vial IM PRN PRN Hypoglycemia Protocol Glucose 15 gm 02/26/23 17:14 Glucose Oral Gel 15 Gm Of Glucse In 37.5 Gm Tube PO PRN PRN Hypoglycemia Protocol Dextrose 1,000 mls @ 100 mls/hr
--- NOTE | 2023-03-03 12:00 | P.PNNP_ITS ---
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 * no critical electrolytes, acidosis, volume overload or evidence of uremia; hence, no urgent reason for dialysis * good urine output noted * follow trend of repeat labs and UOP (2) Chronic kidney disease, stage 3b: Code(s): N18.32 - Chronic kidney disease, stage 3b Status: Chronic Assessment and Plan: * baseline creatinine runs ~ 1.6 - 2.0mg/dl in the last year * due to hypertension and diabetes (based on outpatient evaluation) (3) Sepsis: Code(s): A41.9 - Sepsis, unspecified organism Status: Acute Assessment and Plan: * blood culture with Serratia marcescens and Staphylococcus epidermidis * urine culture with Serratia marcescens * on antibiotics * complicated by immunosuppression (on Humira and methotrexate) * follow repeat cultures * follow hemodynamics closely (4) Metabolic acidosis: Code(s): E87.20 - Acidosis, unspecified Status: Acute Assessment and Plan: * due to CALLI/ARF and infection * was on bicarbonate gtt to compensate - currently off * on oral sodium bicarb tabs * follow CO2 levels (5) Hypertension: Code(s): I10 - Essential (primary) hypertension Status: Chronic Assessment and Plan: * reasonable control at this time * lisinopril on hold * follow trend of hemodynamics (6) Type 2 diabetes mellitus: Code(s): E11.9 - Type 2 diabetes mellitus without complications Status: Chronic Assessment and Plan: * follow accu-cheks * glycemic control per hospitalists Will continue to follow. Subjective Date/time seen: 03/03/23 12:00 Interval history: Follow-up for acute kidney injury/acute renal failure on chronic kidney disease. Continues to do reasonably well -- good urine output noted although still no significant improvement noted with BUN and creatinine (but no worse either); denies nausea, vomiting, confusion, or any other uremic symptoms; no apparent distress noted. Exam Narrative: General: WD/WN male in NAD Heart: normal S1 and S2; no rub Lungs: clear to auscultation Abdomen: soft, nontender, nondistended, positive bowel sounds Extremities: no cyanosis or clubbing; no edema Skin: no nodules Objective Data Vital Signs Vital Signs: Vital Signs Temp Pulse Resp BP Pulse Ox O2 Del Method 03/03/23 12:00 98.0 F 66 18 128/74 98 03/03/23 08:00 63 03/03/23 08:00 Room Air 03/03/23 05:45 97.6 F 61 18 115/59 L 98 03/03/23 04:00 55 L 03/03/23 00:00 57 L 03/02/23 20:00 60 03/02/23 20:41 97.2 F L 61 17 120/67 98 Intake/Output Intake/Output: Intake & Output
--- NOTE | 2023-03-03 13:45 | P.PNIM_ITS ---
Progress Note: A&P Assessment and Plan (1) Acute on chronic renal failure: Code(s): N17.9 - Acute kidney failure, unspecified; N18.9 - Chronic kidney disease, unspecified Status: Acute Assessment and Plan: Followed by Dr. Monroy for chronic kidney disease stage IIIB thought to be related to hypertension and diabetes. Creatinine in November was 1.66. Creatinine on admission 14.6. Etiology unclear. * [place] catheter has been placed to monitor strict I/O. * Renal ultrasound revealed nephrolithiasis otherwise unremarkable * Started on a bicarbonate carbonate drip and discontinued on 03/01 * Nephrology has been consulted for their expertise. * Nephrotoxic medications on hold. (2) Transaminitis: Code(s): R74.01 - Elevation of levels of liver transaminase levels Status: Acute Assessment and Plan: Abdominal exam is benign and CT of the abdomen and pelvis without contrast showed no findings to correlate. In light of the renal failure, a CK was checked and was elevated at 1309. I suppose it is plausible that his CK was higher and is now drifting downwards however he gives no history to suggest a reason for him to have rhabdomyolysis. * Hepatitis studies Negative * Hold adalimumab and rosuvastatin. * Continue to monitor closely. * liver enzymes trending down (3) Urinary tract infection: Code(s): N39.0 - Urinary tract infection, site not specified Status: Acute Assessment and Plan: UA is positive for 1+ leukocyte esterase, greater than 100 WBC, WBC clumps, and 1+ bacteria. * Continue empiric ceftriaxone. * Urine culture positive for Serratia marcescens * Blood cultures positive for Serratia marcescens (1 bottle also had Staph epidermis and the other 1 had Staph hominis. I suspect both of these are contaminants.) * Rocephin increased to 2 g on 03/01/2023 * Repeat blood cultures drawn on 03/03/2023 (4) Metabolic acidosis: Code(s): E87.20 - Acidosis, unspecified Status: Acute Assessment and Plan: Likely due to the renal failure itself. Sepsis seems less likely. Lactic acid within normal limits. * ABG showing carbon dioxide 13 with an anion gap of 19 on admission. * patient started on sodium bicarbonate 1300 mg tabs b.i.d.. (5) Electrolyte abnormality: Code(s): E87.8 - Other disorders of electrolyte and fluid balance, not elsewhere classified Status: Acute Assessment and Plan: * Sodium 124, chloride 82, potassium 3.3. * Continue to trend labs (6) Type 2 diabetes mellitus: Code(s): E11.9 - Type 2 diabetes mellitus without complications Status: Chronic Assessment and Plan: * Sitagliptin and empagliflozin on hold given acute kidney injury. * Initiate sliding scale insulin, Accu-Cheks, and hypoglycemic protocol. * Hemoglobin A1c is 6.9 * DM educator consult. (7) Hypertension: Code(s): I10 - Essential (primary) hypertension Status: Chronic Assessment and Plan: Blood pressures were reviewed and they have been stable, would expect them to be higher with nephritis. * Lisinopril on hold given acute kidney injury. * Continue to monitor blood pressures closely. Subjective Date/time seen: 03/03/23 13:45 Interval history: Patient doing well today with no new complaints. Blood cultures drawn today. Nephrology helping manage patient's CALLI. Exam Narrative:
--- NOTE | 2023-03-03 13:45 | PM.IMPN ---
Progress Note: A&P Assessment and Plan (1) Acute on chronic renal failure: Code(s): N17.9 - Acute kidney failure, unspecified; N18.9 - Chronic kidney disease, unspecified Status: Acute Assessment and Plan: Followed by Dr. Monroy for chronic kidney disease stage IIIB thought to be related to hypertension and diabetes. Creatinine in November was 1.66. Creatinine on admission 14.6. Etiology unclear. [place] catheter has been placed to monitor strict I/O. Renal ultrasound revealed nephrolithiasis otherwise unremarkable Started on a bicarbonate carbonate drip and discontinued on 03/01 Nephrology has been consulted for their expertise. Nephrotoxic medications on hold. (2) Transaminitis: Code(s): R74.01 - Elevation of levels of liver transaminase levels Status: Acute Assessment and Plan: Abdominal exam is benign and CT of the abdomen and pelvis without contrast showed no findings to correlate. In light of the renal failure, a CK was checked and was elevated at 1309. I suppose it is plausible that his CK was higher and is now drifting downwards however he gives no history to suggest a reason for him to have rhabdomyolysis. Hepatitis studies Negative Hold adalimumab and rosuvastatin. Continue to monitor closely. liver enzymes trending down (3) Urinary tract infection: Code(s): N39.0 - Urinary tract infection, site not specified Status: Acute Assessment and Plan: UA is positive for 1+ leukocyte esterase, greater than 100 WBC, WBC clumps, and 1+ bacteria. Continue empiric ceftriaxone. Urine culture positive for Serratia marcescens Blood cultures positive for Serratia marcescens (1 bottle also had Staph epidermis and the other 1 had Staph hominis. I suspect both of these are contaminants.) Rocephin increased to 2 g on 03/01/2023 Repeat blood cultures drawn on 03/03/2023 (4) Metabolic acidosis: Code(s): E87.20 - Acidosis, unspecified Status: Acute Assessment and Plan: Likely due to the renal failure itself. Sepsis seems less likely. Lactic acid within normal limits. ABG showing carbon dioxide 13 with an anion gap of 19 on admission. patient started on sodium bicarbonate 1300 mg tabs b.i.d.. (5) Electrolyte abnormality: Code(s): E87.8 - Other disorders of electrolyte and fluid balance, not elsewhere classified Status: Acute Assessment and Plan: Sodium 124, chloride 82, potassium 3.3. Continue to trend labs (6) Type 2 diabetes mellitus: Code(s): E11.9 - Type 2 diabetes mellitus without complications Status: Chronic Assessment and Plan: Sitagliptin and empagliflozin on hold given acute kidney injury. Initiate sliding scale insulin, Accu-Cheks, and hypoglycemic protocol. Hemoglobin A1c is 6.9 DM educator consult. (7) Hypertension: Code(s): I10 - Essential (primary) hypertension Status: Chronic Assessment and Plan: Blood pressures were reviewed and they have been stable, would expect them to be higher with nephritis. Lisinopril on hold given acute kidney injury. Continue to monitor blood pressures closely. Subjective Date/time seen: 03/03/23 13:45 Interval history: Patient doing well today with no new complaints. Blood cultures drawn today. Nephrology helping manage patient's CALLI. Exam Narrative: GENERAL: Comfortable, no acute distress HENMT: moist mucous membranes EYES: EOM intact b/l NECK: no lymphadenopathy RESPIRATORY: clear to auscultation CARDIO: RRR GI: soft, nontender, bowel sounds present : Urinary catheter patent draining clear light colored urine SKIN: no rashes, uremic salguero appearance EXTREMITIES: no edema, redness or tenderness Objective Data Vital Signs Vital Signs: Vital Signs - 24 hr 03/02/23 14:00 03/02/23 16:00 03/02/23 20:41 Temperature 96.9 F L 97.2 F L Pulse Rate 67
[2023-03-03 17:05] LABS: Glucose Point of Care 89 mg/dl (65-105)
[2023-03-03] MEDS: CALCIUM CARBONATE (OSCAL) 500 MG TABLET 1000 MG PO (17:26)
[2023-03-03 20:32] LABS: Glucose Point of Care 104 mg/dl (65-105)
[2023-03-04] VITALS (9 sets, daily range): BP systolic 114–138; BP diastolic 60–76; PULSE 61–72; RESP 16–18; TEMP 36.2–36.8; O2SAT 96–100; BMI 30.5
[2023-03-04 06:08] LABS: Basophils Percent Auto 0.3 % (0.2-1.2); Eosinophils Absolute Auto 0.2 K/mm3 (0-0.3); Eosinophils Percent Auto 2.4 % (0-4.4); Hematocrit 28.6 % (42.0-52.0); Immature Granulocyte Absolute 0.09 K/mm3 (0.00-0.031); Lymphocytes Absolute Auto 0.47 K/mm3 (0.9-3.2); Lymphocytes Percent Auto 5.2 % (18.3-44.2); Mean Corpuscular Hemoglobin 31.3 pg (26-34); Mean Corpuscular Volume 89.4 fl (80-100); Mean Platelet Volume 11.2 fl (7.4-10.4); Monocytes Absolute Auto 0.3 K/mm3 (0.1-0.6); Monocytes Percent Auto 3.5 % (2.6-8.5); Neutrophils Percent Auto 87.6 % (45.5-73.1); Platelet Count Result 206 k/mm3 (150-375); White Blood Count 9.1 K/mm3 (4.5-10.0)
[2023-03-04 06:20] LABS: Alanine Aminotransferase 101 U/L (6-50); Albumin Level 2.8 g/dL (3.5-5.1); Alkaline Phosphatase 104 U/L (38-126); Anion Gap 21 mmol/L (8-16); Aspartate Amino Transferase 50 U/L (17-59); Bilirubin,Total 0.7 mg/dL (0.2-1.3); Calcium 6.3 mg/dL (8.4-10.2); Carbon Dioxide 17 mmol/L (22-30); Chloride 90 mmol/L (98-107); Glucose 70 mg/dL (65-110); Phosphorus 10.6 mg/dL (2.5-4.5); Potassium 3.3 mmol/L (3.4-5.0); Sodium 128 mmol/L (137-145)
[2023-03-04 06:32] LABS: Estimated CRCL calculation 5 ml/min; Estimated Glomerular Filt Rate 3
[2023-03-04 06:37] LABS: Blood Urea Nitrogen 130 mg/dL (9-20)
[2023-03-04 08:01] LABS: Glucose Point of Care 69 mg/dl (65-105)
[2023-03-04 08:21] LABS: Glucose Point of Care 67 mg/dl (65-105)
[2023-03-04] MEDS: SODIUM BICARBONATE TAB 650 MG TABLET 1300 MG PO ×2 (08:30→16:10)
[2023-03-04] MEDS: CALCIUM CARBONATE (OSCAL) 500 MG TABLET 1000 MG PO ×3 (08:30→16:09)
[2023-03-04 09:17] LABS: Glucose Point of Care 82 mg/dl (65-105)
--- NOTE | 2023-03-04 10:22 | P.PNNP_ITS ---
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 * no critical electrolytes, severe acidosis, or volume overload; however, possible uremic symptoms noted -- this maybe a reason for dialysis initiation * good urine output noted * follow trend of repeat labs and UOP (2) Chronic kidney disease, stage 3b: Code(s): N18.32 - Chronic kidney disease, stage 3b Status: Chronic Assessment and Plan: * baseline creatinine runs ~ 1.6 - 2.0mg/dl in the last year * due to hypertension and diabetes (based on outpatient evaluation) (3) Sepsis: Code(s): A41.9 - Sepsis, unspecified organism Status: Acute Assessment and Plan: * blood culture with Serratia marcescens and Staphylococcus epidermidis * urine culture with Serratia marcescens * on antibiotics * complicated by immunosuppression (on Humira and methotrexate) * follow repeat cultures * follow hemodynamics closely (4) Metabolic acidosis: Code(s): E87.20 - Acidosis, unspecified Status: Acute Assessment and Plan: * due to CALLI/ARF and infection * was on bicarbonate gtt to compensate - currently off * on oral sodium bicarb tabs * follow CO2 levels (5) Hypertension: Code(s): I10 - Essential (primary) hypertension Status: Chronic Assessment and Plan: * reasonable control at this time * lisinopril on hold * follow trend of hemodynamics (6) Type 2 diabetes mellitus: Code(s): E11.9 - Type 2 diabetes mellitus without complications Status: Chronic Assessment and Plan: * follow accu-cheks * glycemic control per hospitalists Long extensive discussion (> 20 minutes) with the patient as well as his family at bedside regarding my concerns for possible uremia/uremic symptoms And if the symptoms continue to progress, this may be a reason/indication for renal replacement therapy/dialysis. His family and the patient appeared to voice understanding although the patient would like to avoid dialysis if possible. Will continue to follow. Subjective Date/time seen: 03/04/23 10:22 Interval history: Follow-up for acute kidney injury/acute renal failure on chronic kidney disease. Continues to make good urine output but renal function still about the same (no significant improvement but no worsening either); upon further questioning of both the patient as well as his son and son-in-law at bedside, he maybe experiencing some mild uremic symptoms -- he states that the food he ate yesterday and this morning did not taste right and his family reports that he seems more forgetful and his ability to focus/concentrate on things is not as it should be; he sometimes repeats the same question that he asked a few minutes before.... Exam Narrative: General: WD/WN male in NAD Heart: normal S1 and S2; no rub Lungs: clear to auscultation Abdomen: soft, nontender, nondistended, positive bowel sounds Extremities: no cyanosis
--- NOTE | 2023-03-04 10:22 | PM.PNNEP ---
Progress Note: A&P Assessment and Plan (1) CALLI (acute kidney injury): Code(s): N17.9 - Acute kidney failure, unspecified Status: Acute Assessment and Plan: no real significant improvement noted (but no worsing either) evaluation to date noted: urine electrolytes non-prerenal urine eosinophils negative CPK mildly elevated but coming down proteinuria noted renal ultrasound w/o obstruction suspect ATN from infection/sepsis (+ blood/urine culture noted) would hold off on steroids or renal biopsy in this setting however, he still remains at high risk for [place]/dialysis no critical electrolytes, severe acidosis, or volume overload; however, possible uremic symptoms noted -- this maybe a reason for dialysis initiation good urine output noted follow trend of repeat labs and UOP (2) Chronic kidney disease, stage 3b: Code(s): N18.32 - Chronic kidney disease, stage 3b Status: Chronic Assessment and Plan: baseline creatinine runs ~ 1.6 - 2.0mg/dl in the last year due to hypertension and diabetes (based on outpatient evaluation) (3) Sepsis: Code(s): A41.9 - Sepsis, unspecified organism Status: Acute Assessment and Plan: blood culture with Serratia marcescens and Staphylococcus epidermidis urine culture with Serratia marcescens on antibiotics complicated by immunosuppression (on Humira and methotrexate) follow repeat cultures follow hemodynamics closely (4) Metabolic acidosis: Code(s): E87.20 - Acidosis, unspecified Status: Acute Assessment and Plan: due to CALLI/ARF and infection was on bicarbonate gtt to compensate - currently off on oral sodium bicarb tabs follow CO2 levels (5) Hypertension: Code(s): I10 - Essential (primary) hypertension Status: Chronic Assessment and Plan: reasonable control at this time lisinopril on hold follow trend of hemodynamics (6) Type 2 diabetes mellitus: Code(s): E11.9 - Type 2 diabetes mellitus without complications Status: Chronic Assessment and Plan: follow accu-cheks glycemic control per hospitalists Long extensive discussion (> 20 minutes) with the patient as well as his family at bedside regarding my concerns for possible uremia/uremic symptoms And if the symptoms continue to progress, this may be a reason/indication for renal replacement therapy/dialysis. His family and the patient appeared to voice understanding although the patient would like to avoid dialysis if possible. Will continue to follow. Subjective Date/time seen: 03/04/23 10:22 Interval history: Follow-up for acute kidney injury/acute renal failure on chronic kidney disease. Continues to make good urine output but renal function still about the same (no significant improvement but no worsening either); upon further questioning of both the patient as well as his son and son-in-law at bedside, he maybe experiencing some mild uremic symptoms -- he states that the food he ate yesterday and this morning did not taste right and his family reports that he seems more forgetful and his ability to focus/concentrate on things is not as it should be; he sometimes repeats the same question that he asked a few minutes before.... Exam Narrative: General: WD/WN male in NAD Heart: normal S1 and S2; no rub Lungs: clear to auscultation Abdomen: soft, nontender, nondistended, positive bowel sounds Extremities: no cyanosis or clubbing; no edema Skin: warm and dry Objective Data Vital Signs Vital Signs: Vital Signs Temp Pulse Resp BP Pulse Ox O2 Del Method 03/04/23 10:00 64 03/04/23 08:00 72 03/04/23 13:44 98.2 F 62 18 138/73 100 03/04/23 08:00 Room Air 03/04/23 05:57 97.2 F L 64 16 114/60 96 03/04/23 04:00 64 03/04/23 00:00 61 03/03/23 20:00 60 03/03/23 21:39 97.1 F L 65 14 135/72 97 03/03
--- NOTE | 2023-03-04 11:13 | PCCDE ---
03/04/23: ~ 10:30 am Stopped in to see pt since was tired yesterday, any new questions. Pt stating they went crazy when BG 67 -> discussed hypoglycemia definition and treatment, target BG numbers. Asking relevant questions, answered or if out of scope; directed to ask MD. Renal function is priority. Pt open to outpatient DSMT - process initiated. (he was talking about family, particularly daughter - advised invited to outpatient appt. when scheduled if he'd like.)
[2023-03-04 11:17] LABS: Glucose Point of Care 138 mg/dl (65-105)
[2023-03-04] MEDS: cefTRIAXone 2 GM/NS 100 ML 2 GM/100 ML BAG IVPB (11:40)
--- NOTE | 2023-03-04 13:32 | P.PNIM_ITS ---
Progress Note: A&P Assessment and Plan (1) Acute on chronic renal failure: Code(s): N17.9 - Acute kidney failure, unspecified; N18.9 - Chronic kidney disease, unspecified Status: Acute Assessment and Plan: Followed by Dr. Monroy for chronic kidney disease stage IIIB thought to be related to hypertension and diabetes. Creatinine in November was 1.66. Creatinine on admission 14.6. Etiology unclear. * [place] catheter has been placed to monitor strict I/O. * Renal ultrasound revealed nephrolithiasis otherwise unremarkable * Started on a bicarbonate carbonate drip and discontinued on 03/01 * Nephrology has been consulted for their expertise. * Nephrotoxic medications on hold. (2) Transaminitis: Code(s): R74.01 - Elevation of levels of liver transaminase levels Status: Acute Assessment and Plan: Abdominal exam is benign and CT of the abdomen and pelvis without contrast showed no findings to correlate. In light of the renal failure, a CK was checked and was elevated at 1309. I suppose it is plausible that his CK was higher and is now drifting downwards however he gives no history to suggest a reason for him to have rhabdomyolysis. * Hepatitis studies Negative * Hold adalimumab and rosuvastatin. * Continue to monitor closely. * liver enzymes trending down (3) Urinary tract infection: Code(s): N39.0 - Urinary tract infection, site not specified Status: Acute Assessment and Plan: UA is positive for 1+ leukocyte esterase, greater than 100 WBC, WBC clumps, and 1+ bacteria. * Continue empiric ceftriaxone. * Urine culture positive for Serratia marcescens * Blood cultures positive for Serratia marcescens (1 bottle also had Staph epidermis and the other 1 had Staph hominis. I suspect both of these are contaminants.) * Rocephin increased to 2 g on 03/01/2023 * Repeat blood cultures drawn on 03/03/2023 (4) Metabolic acidosis: Code(s): E87.20 - Acidosis, unspecified Status: Acute Assessment and Plan: Likely due to the renal failure itself. Sepsis seems less likely. Lactic acid within normal limits. * ABG showing carbon dioxide 13 with an anion gap of 19 on admission. * patient started on sodium bicarbonate 1300 mg tabs b.i.d.. (5) Electrolyte abnormality: Code(s): E87.8 - Other disorders of electrolyte and fluid balance, not elsewhere classified Status: Acute Assessment and Plan: * Sodium 128, chloride 90, potassium 3.3. * Continue to trend labs (6) Type 2 diabetes mellitus: Code(s): E11.9 - Type 2 diabetes mellitus without complications Status: Chronic Assessment and Plan: * Sitagliptin and empagliflozin on hold given acute kidney injury. * Initiate sliding scale insulin, Accu-Cheks, and hypoglycemic protocol. * Hemoglobin A1c is 6.9 * DM educator consult. (7) Hypertension: Code(s): I10 - Essential (primary) hypertension Status: Chronic Assessment and Plan: Blood pressures were reviewed and they have been stable, would expect them to be higher with nephritis. * Lisinopril on hold given acute kidney injury. * Continue to monitor blood pressures closely. Subjective Date/time seen: 03/04/23 13:32 Interval history: Patient doing well no new complaints at this time. Kidney function not improving but also not worsening. Exam Narrative: GENERAL: Co
--- NOTE | 2023-03-04 13:32 | PM.IMPN ---
Progress Note: A&P Assessment and Plan (1) Acute on chronic renal failure: Code(s): N17.9 - Acute kidney failure, unspecified; N18.9 - Chronic kidney disease, unspecified Status: Acute Assessment and Plan: Followed by Dr. Monroy for chronic kidney disease stage IIIB thought to be related to hypertension and diabetes. Creatinine in November was 1.66. Creatinine on admission 14.6. Etiology unclear. [place] catheter has been placed to monitor strict I/O. Renal ultrasound revealed nephrolithiasis otherwise unremarkable Started on a bicarbonate carbonate drip and discontinued on 03/01 Nephrology has been consulted for their expertise. Nephrotoxic medications on hold. (2) Transaminitis: Code(s): R74.01 - Elevation of levels of liver transaminase levels Status: Acute Assessment and Plan: Abdominal exam is benign and CT of the abdomen and pelvis without contrast showed no findings to correlate. In light of the renal failure, a CK was checked and was elevated at 1309. I suppose it is plausible that his CK was higher and is now drifting downwards however he gives no history to suggest a reason for him to have rhabdomyolysis. Hepatitis studies Negative Hold adalimumab and rosuvastatin. Continue to monitor closely. liver enzymes trending down (3) Urinary tract infection: Code(s): N39.0 - Urinary tract infection, site not specified Status: Acute Assessment and Plan: UA is positive for 1+ leukocyte esterase, greater than 100 WBC, WBC clumps, and 1+ bacteria. Continue empiric ceftriaxone. Urine culture positive for Serratia marcescens Blood cultures positive for Serratia marcescens (1 bottle also had Staph epidermis and the other 1 had Staph hominis. I suspect both of these are contaminants.) Rocephin increased to 2 g on 03/01/2023 Repeat blood cultures drawn on 03/03/2023 (4) Metabolic acidosis: Code(s): E87.20 - Acidosis, unspecified Status: Acute Assessment and Plan: Likely due to the renal failure itself. Sepsis seems less likely. Lactic acid within normal limits. ABG showing carbon dioxide 13 with an anion gap of 19 on admission. patient started on sodium bicarbonate 1300 mg tabs b.i.d.. (5) Electrolyte abnormality: Code(s): E87.8 - Other disorders of electrolyte and fluid balance, not elsewhere classified Status: Acute Assessment and Plan: Sodium 128, chloride 90, potassium 3.3. Continue to trend labs (6) Type 2 diabetes mellitus: Code(s): E11.9 - Type 2 diabetes mellitus without complications Status: Chronic Assessment and Plan: Sitagliptin and empagliflozin on hold given acute kidney injury. Initiate sliding scale insulin, Accu-Cheks, and hypoglycemic protocol. Hemoglobin A1c is 6.9 DM educator consult. (7) Hypertension: Code(s): I10 - Essential (primary) hypertension Status: Chronic Assessment and Plan: Blood pressures were reviewed and they have been stable, would expect them to be higher with nephritis. Lisinopril on hold given acute kidney injury. Continue to monitor blood pressures closely. Subjective Date/time seen: 03/04/23 13:32 Interval history: Patient doing well no new complaints at this time. Kidney function not improving but also not worsening. Exam Narrative: GENERAL: Comfortable, no acute distress HENMT: moist mucous membranes EYES: EOM intact b/l NECK: no lymphadenopathy RESPIRATORY: clear to auscultation CARDIO: RRR GI: soft, nontender, bowel sounds present : Urinary catheter patent draining clear light colored urine SKIN: no rashes, uremic salguero appearance EXTREMITIES: no edema, redness or tenderness Objective Data Vital Signs Vital Signs: Vital Signs - 24 hr 03/03/23 14:00 03/03/23 16:00 03/03/23 20:00 Temperature 98.0 F Pulse Rate 66 66 65 Respiratory
[2023-03-04] MEDS: SODIUM CHLORIDE 0.9% IV 1,000 ML 75 ML IV CONT (16:11)
[2023-03-04 16:56] LABS: Glucose Point of Care 153 mg/dl (65-105)
[2023-03-04 21:11] LABS: Glucose Point of Care 139 mg/dl (65-105)
[2023-03-05] VITALS (22 sets, daily range): BP systolic 125–176; BP diastolic 54–99; PULSE 56–100; RESP 12–18; TEMP 36–37; O2SAT 97–99
[2023-03-05] MEDS: SODIUM CHLORIDE 0.9% IV 1,000 ML 75 ML IV CONT (05:54)
[2023-03-05 07:02] LABS: Basophils Percent Auto 0.3 % (0.2-1.2); Eosinophils Absolute Auto 0.2 K/mm3 (0-0.3); Eosinophils Percent Auto 3.4 % (0-4.4); Hematocrit 29.9 % (42.0-52.0); Hemoglobin 10.3 g/dL (14.0-18.0); Immature Granulocyte Absolute 0.07 K/mm3 (0.00-0.031); Immature Granulocyte Percent A 1.1 % (0-0.5); Lymphocytes Percent Auto 6.2 % (18.3-44.2); Mean Corpuscular HGB Conc 34.4 g/dl (32-36); Mean Corpuscular Hemoglobin 30.6 pg (26-34); Mean Corpuscular Volume 88.7 fl (80-100); Monocytes Absolute Auto 0.3 K/mm3 (0.1-0.6); Monocytes Percent Auto 5.1 % (2.6-8.5); Neutrophils Absolute Auto 5.5 K/mm3 (1.3-6.7); Neutrophils Percent Auto 83.9 % (45.5-73.1); Platelet Count Result 253 k/mm3 (150-375); Red Blood Count 3.37 M/mm3 (4.6-6.20); Red Cell Distribution Width 13.4 % (11.5-14.5); White Blood Count 6.5 K/mm3 (4.5-10.0)
[2023-03-05 07:21] LABS: Alanine Aminotransferase 93 U/L (6-50); Albumin Level 2.8 g/dL (3.5-5.1); Alkaline Phosphatase 103 U/L (38-126); Anion Gap 17 mmol/L (8-16); Aspartate Amino Transferase 51 U/L (17-59); Bilirubin,Total 0.6 mg/dL (0.2-1.3); Blood Urea Nitrogen 117 mg/dL (9-20); Calcium 6.7 mg/dL (8.4-10.2); Carbon Dioxide 20 mmol/L (22-30); Chloride 93 mmol/L (98-107); Glucose 106 mg/dL (65-110); Phosphorus 9.5 mg/dL (2.5-4.5); Potassium 3.1 mmol/L (3.4-5.0); Sodium 130 mmol/L (137-145)
[2023-03-05 07:24] LABS: Estimated CRCL calculation 5 ml/min; Estimated Glomerular Filt Rate 3
[2023-03-05 07:24] LABS: Glucose Point of Care 103 mg/dl (65-105)
[2023-03-05] MEDS: CALCIUM CARBONATE (OSCAL) 500 MG TABLET 1500 MG PO ×3 (08:26→16:42)
[2023-03-05] MEDS: SODIUM BICARBONATE TAB 650 MG TABLET 1300 MG PO ×2 (08:26→16:41)
[2023-03-05 09:21] LABS: Hepatitis B Surface Antigen Negative (Negative)
[2023-03-05 09:31] LABS: Hepatitis B Surface Anti Res Negative
--- NOTE | 2023-03-05 10:46 | P.PNNP_ITS ---
Progress Note: A&P Assessment and Plan (1) CALLI (acute kidney injury): Code(s): N17.9 - Acute kidney failure, unspecified Status: Acute Assessment and Plan: * no real significant improvement noted * evaluation to date noted: * urine electrolytes non-prerenal * urine eosinophils negative * CPK mildly elevated but coming down * proteinuria noted * renal ultrasound w/o obstruction * suspect ATN from infection/sepsis (+ blood/urine culture noted) * would hold off on steroids or renal biopsy in this setting * The patient has signs of uremia. He is not thinking correctly. He has no appetite and has not been eating. His blood sugars have been dropping. * I think he needs dialysis. I discussed the risks benefits alternatives and process to the patient and to his . They agree to proceed. * They understand that he will probably need dialysis on discharge and we can set him up with the dialysis unit in [place] to continue dialysis. * I talked with patient, , nursing, and surgeon at length. 25 min were spent in conversation beyond clinical activity (2) Chronic kidney disease, stage 3b: Code(s): N18.32 - Chronic kidney disease, stage 3b Status: Chronic Assessment and Plan: * baseline creatinine runs ~ 1.6 - 2.0mg/dl in the last year * due to hypertension and diabetes (based on outpatient evaluation) (3) Sepsis: Code(s): A41.9 - Sepsis, unspecified organism Status: Acute Assessment and Plan: * blood culture with Serratia marcescens and Staphylococcus epidermidis * urine culture with Serratia marcescens * on ceftriaxone * complicated by immunosuppression (on Humira and methotrexate) * Blood cultures on 05/03 are negative so far * Blood pressure has been good. (4) Metabolic acidosis: Code(s): E87.20 - Acidosis, unspecified Status: Acute Assessment and Plan: * due to CALLI/ARF and infection * was on bicarbonate gtt to compensate - currently off * on oral sodium bicarb tabs * CO2 is improved at 20 (5) Hypertension: Code(s): I10 - Essential (primary) hypertension Status: Chronic Assessment and Plan: * reasonable control at this time * Blood pressure in the 120s and 130 * lisinopril on hold (6) Type 2 diabetes mellitus: Code(s): E11.9 - Type 2 diabetes mellitus without complications Status: Chronic Assessment and Plan: * follow accu-cheks * He is off his oral agents. * Sugars have been lower at times. We discussed that this is because of the renal failure will check cortisol just in case. Liver enzymes were high better coming down. Bilirubin has been good the last few days Subjective Date/time seen: 03/05/23 10:46 Interval history: Patient's is in the room. Food tastes terrible. The patient is not eating. He is a bit confused. He knows me but understanding complex issues is difficult for him. Exam Narrative: General: WD/WN male in NAD Heart: normal S1 and S2; no rub or gallop Lungs: clear bilaterally Abdomen: soft, nontender, nondistended, positive bowel sounds Extremities: no cyanosis or clubbing; no edema Skin: No rash Objective Data Vital Signs Vital Signs: Vital Signs - 24 hr 03/04/23 13:44 03/04/23 12:00 03/04/23 16:00 Temperature 98.2 F Pulse Rate 62 64 67 Respiratory Rate 18 Blood Pressure 138/73
--- NOTE | 2023-03-05 10:46 | PM.PNNEP ---
Progress Note: A&P Assessment and Plan (1) CALLI (acute kidney injury): Code(s): N17.9 - Acute kidney failure, unspecified Status: Acute Assessment and Plan: no real significant improvement noted evaluation to date noted: urine electrolytes non-prerenal urine eosinophils negative CPK mildly elevated but coming down proteinuria noted renal ultrasound w/o obstruction suspect ATN from infection/sepsis (+ blood/urine culture noted) would hold off on steroids or renal biopsy in this setting The patient has signs of uremia. He is not thinking correctly. He has no appetite and has not been eating. His blood sugars have been dropping. I think he needs dialysis. I discussed the risks benefits alternatives and process to the patient and to his . They agree to proceed. They understand that he will probably need dialysis on discharge and we can set him up with the dialysis unit in [place] to continue dialysis. I talked with patient, , nursing, and surgeon at length. 25 min were spent in conversation beyond clinical activity (2) Chronic kidney disease, stage 3b: Code(s): N18.32 - Chronic kidney disease, stage 3b Status: Chronic Assessment and Plan: baseline creatinine runs ~ 1.6 - 2.0mg/dl in the last year due to hypertension and diabetes (based on outpatient evaluation) (3) Sepsis: Code(s): A41.9 - Sepsis, unspecified organism Status: Acute Assessment and Plan: blood culture with Serratia marcescens and Staphylococcus epidermidis urine culture with Serratia marcescens on ceftriaxone complicated by immunosuppression (on Humira and methotrexate) Blood cultures on 05/03 are negative so far Blood pressure has been good. (4) Metabolic acidosis: Code(s): E87.20 - Acidosis, unspecified Status: Acute Assessment and Plan: due to CALLI/ARF and infection was on bicarbonate gtt to compensate - currently off on oral sodium bicarb tabs CO2 is improved at 20 (5) Hypertension: Code(s): I10 - Essential (primary) hypertension Status: Chronic Assessment and Plan: reasonable control at this time Blood pressure in the 120s and 130 lisinopril on hold (6) Type 2 diabetes mellitus: Code(s): E11.9 - Type 2 diabetes mellitus without complications Status: Chronic Assessment and Plan: follow accu-cheks He is off his oral agents. Sugars have been lower at times. We discussed that this is because of the renal failure will check cortisol just in case. Liver enzymes were high better coming down. Bilirubin has been good the last few days Subjective Date/time seen: 03/05/23 10:46 Interval history: Patient's is in the room. Food tastes terrible. The patient is not eating. He is a bit confused. He knows me but understanding complex issues is difficult for him. Exam Narrative: General: WD/WN male in NAD Heart: normal S1 and S2; no rub or gallop Lungs: clear bilaterally Abdomen: soft, nontender, nondistended, positive bowel sounds Extremities: no cyanosis or clubbing; no edema Skin: No rash Objective Data Vital Signs Vital Signs: Vital Signs - 24 hr 03/04/23 13:44 03/04/23 12:00 03/04/23 16:00 Temperature 98.2 F Pulse Rate 62 64 67 Respiratory Rate 18 Blood Pressure 138/73 Pulse Oximetry 100 Oxygen Delivery 03/04/23 20:53 03/04/23 20:00 03/04/23 20:00 Temperature 97.9 F Pulse Rate 70 70 Respiratory Rate 16 Blood Pressure 133/76 Pulse Oximetry 99 Oxygen Delivery Room Air 03/05/23 00:00 03/05/23 04:00 03/05/23 05:42 Temperature 97.3 F L Pulse Rate 62 61 63 Respiratory Rate 16 Blood Pressure 129/65 Pulse Oximetry 97 Oxygen Delivery 03/05/23 08:00 03/05/23 08:00 Temperature Pulse Rate 100 Respiratory Rate Blood Pressure Pulse Oximetry Oxygen Delivery Room Air Intake/Output Int
[2023-03-05 11:54] LABS: Glucose Point of Care 121 mg/dl (65-105)
[2023-03-05] MEDS: cefTRIAXone 2 GM/NS 100 ML 2 GM/100 ML BAG IVPB (12:07)
--- NOTE | 2023-03-05 12:28 | PM.CNGS ---
Assessment and Plan Assessment and plan (1) Acute on chronic renal failure: Code(s): N17.9 - Acute kidney failure, unspecified; N18.9 - Chronic kidney disease, unspecified Status: Acute Assessment and Plan: will setup for placement of emergent hemodialysis access at bedside, d/w pt and and they wish to proceed History of Present Illness Consult details Consult date: 03/05/23 Reason for consult: central line Requesting physician: Edward Monroy MD Narrative: The patient is a 67-year-old male with multiple medical issues including chronic renal disease now presenting with acute renal failure. The patient is quite uremic at this point and has mental status changes secondary to that. Given these findings, nephrology has consulted for emergent dialysis access. The risks, benefits, alternatives were discussed with the patient and his and they wished to proceed. Most history is obtained via chart given the patient's confusion. Review of Systems Review of Systems: ROS unobtainable: Yes unobtainable due to mental status PMFSH Past Medical History Medical History Chronic kidney disease, stage 3b Diabetes mellitus Hyperlipidemia Hypertension Hypothyroidism Psoriatic arthritis Type 2 diabetes mellitus Surgical History Surgical History Total knee replacement status Family History Family History Father Hypertension Social History Social History Social History: Surrogate medical decision maker: Nilsa Frazier, spouse. Code status: Full code. Smoking status: Former smoker Tobacco type: cigars Smoking end date: 07/19/19 Alcohol intake: current Drinks per week: 8 Substance use: never Substance use type: does not use Lack of Transportation: No Lack of Food: Never True Current Housing: I Have Housing Concerned About Future Housing: No Difficulty Paying Gas/Electric Bills: No Difficulty Paying for Meds: No Currently Unemployed: No Education: High School Diploma/GED Difficulty w/ Childcare or Family Care: No Living arrangements: with family Spiritual care concerns: No Agree to blood products: Yes Meds Home Medications and Allergies Home Medications Medication Instructions Recorded Confirmed Type adalimumab 40 mg/0.8 mL 40 mg subcut .EVERY 10 DAYS 06/12/19 02/26/23 History subcutaneous pen kit (Humira Pen) folic acid 1 mg tablet 1 mg PO DAILY 06/12/19 02/26/23 History methotrexate sodium 2.5 mg tablet 5 mg PO WEEKLY 01/14/21 02/26/23 History rosuvastatin 20 mg tablet 20 mg PO DAILY #90 tabs 12/31/22 02/26/23 Rx sitagliptin phosphate 50 mg tablet 50 mg PO DAILY #30 tabs 02/02/23 02/26/23 Rx (Januvia) empagliflozin 25 mg tablet 25 mg PO DAILY 02/26/23 02/26/23 History (Jardiance) lisinopril 40 mg tablet 40 mg PO Q12H 02/26/23 02/26/23 History Allergies Allergy/AdvReac Type Severity Reaction Status Date / Time Siberian ginseng Allergy Mild HIVES Verified 12/15/22 06:45 hummus Allergy Intermediate Swelling Uncoded 12/15/22 06:45 green tea Allergy Other Uncoded 12/15/22 06:45 Vital Signs Vital Signs - 24 hr 03/04/23 13:44 03/04/23 16:00 03/04/23 20:53 Temperature 36.8 C 36.6 C Pulse Rate 62 67 70 Respiratory Rate 18 16 Blood Pressure 138/73 133/76 Pulse Oximetry 100 99 Oxygen Delivery 03/04/23 20:00 03/04/23 20:00 03/05/23 00:00 Temperature Pulse Rate 70 62 Respiratory Rate Blood Pressure Pulse Oximetry Oxygen Delivery Room Air 03/05/23 04:00 03/05/23 05:42 03/05/23 08:00 Temperature 36.3 C L Pulse Rate 61 63 100 Respiratory Rate 16 Blood Pressure 129/65 Pulse Oximetry 97 Oxygen Delivery 03/05/23 08:00 Temperature Pulse Rate Respiratory Rate Blood Pressur
--- NOTE | 2023-03-05 12:32 | W.PM.PROC2 ---
Procedure Note - Detailed Date of Procedure 03/05/23 Pre-op Diagnosis Acute Renal Failure Post-op Diagnosis Same Procedure Performed Placement of right internal jugular temporary Trialysis catheter under ultrasound guidance Surgeon Olivia Leiva MD Anesthesia Local Indications 67-year-old male with acute on chronic renal failure necessitating emergent hemodialysis Findings 1st stick right internal jugular vein under ultrasound guidance Description of Procedure The patient was placed in the supine position in Trendelenburg position. Consent was obtained prior to the initiation of the procedure. A time-out was then done to verify the patient's identity, as well as the procedure being performed. The patient was then prepped and draped in the normal sterile fashion. I then identified the right internal jugular vein with the ultrasound device. I then localized the neck around the vein at our anticipated insertion site. Using the ultrasound, I gain access into the right internal jugular vein with an 18 gauge needle. I then fed the guidewire into the right internal jugular vein. The needle was then removed leaving just the guidewire in the vein. I then enlarged the opening around the guidewire. I then serially dilated the opening with the dilators. Once adequately dilated, a 16 cm Trialysis catheter was placed under sterile Seldinger technique over the guidewire into the right internal jugular vein. Once properly positioned, the guidewire was removed just leaving the catheter in the vein. I was able to easily draw and flush from all ports. I then sutured the catheter in place. Sterile dressing was then placed. The patient tolerated the procedure well. A portable chest x-ray will be done to confirm positioning. Implants 16 cm Trialysis catheter in right internal jugular vein Estimated Blood Loss 5 Complications No immediate complications Condition Critical Disposition No change [facility] Billing Surgery - Charge Forward: Surgery Billing
--- NOTE | 2023-03-05 13:35 | PM.IMPN ---
Progress Note: A&P Assessment and Plan (1) Acute on chronic renal failure: Code(s): N17.9 - Acute kidney failure, unspecified; N18.9 - Chronic kidney disease, unspecified Status: Acute Assessment and Plan: Followed by Dr. Monroy for chronic kidney disease stage IIIB thought to be related to hypertension and diabetes. Creatinine in November was 1.66. Creatinine on admission 14.6. Etiology unclear. [place] catheter has been placed to monitor strict I/O. Renal ultrasound revealed nephrolithiasis otherwise unremarkable Started on a bicarbonate carbonate drip and discontinued on 03/01 Nephrology has been consulted for their expertise. Nephrotoxic medications on hold. Patient's BUN and creatinine in not improving and patient and his family decided to go through with dialysis. General surgery consulted to place emergent hemodialysis access at bedside. (2) Urinary tract infection: Code(s): N39.0 - Urinary tract infection, site not specified Status: Acute Assessment and Plan: UA is positive for 1+ leukocyte esterase, greater than 100 WBC, WBC clumps, and 1+ bacteria. Continue empiric ceftriaxone. Urine culture positive for Serratia marcescens Blood cultures positive for Serratia marcescens (1 bottle also had Staph epidermis and the other 1 had Staph hominis. I suspect both of these are contaminants.) Rocephin increased to 2 g on 03/01/2023 Repeat blood cultures have remained negative to date (3) Transaminitis: Code(s): R74.01 - Elevation of levels of liver transaminase levels Status: Acute Assessment and Plan: Abdominal exam is benign and CT of the abdomen and pelvis without contrast showed no findings to correlate. In light of the renal failure, a CK was checked and was elevated at 1309. I suppose it is plausible that his CK was higher and is now drifting downwards however he gives no history to suggest a reason for him to have rhabdomyolysis. Hepatitis studies Negative Hold adalimumab and rosuvastatin. Continue to monitor closely. liver enzymes trending down (4) Metabolic acidosis: Code(s): E87.20 - Acidosis, unspecified Status: Acute Assessment and Plan: Likely due to the renal failure itself. Sepsis seems less likely. Lactic acid within normal limits. ABG showing carbon dioxide 13 with an anion gap of 19 on admission. patient started on sodium bicarbonate 1300 mg tabs b.i.d.. (5) Electrolyte abnormality: Code(s): E87.8 - Other disorders of electrolyte and fluid balance, not elsewhere classified Status: Acute Assessment and Plan: Sodium 130, chloride 93, potassium 3.1. Continue to trend labs (6) Type 2 diabetes mellitus: Code(s): E11.9 - Type 2 diabetes mellitus without complications Status: Chronic Assessment and Plan: Sitagliptin and empagliflozin on hold given acute kidney injury. Initiate sliding scale insulin, Accu-Cheks, and hypoglycemic protocol. Hemoglobin A1c is 6.9 DM educator consult. (7) Hypertension: Code(s): I10 - Essential (primary) hypertension Status: Chronic Assessment and Plan: Blood pressures were reviewed and they have been stable, would expect them to be higher with nephritis. Lisinopril on hold given acute kidney injury. Continue to monitor blood pressures closely. Subjective Date/time seen: 03/05/23 13:35 Interval history: Patient very groggy and difficult to arouse when I in his room. is at bedside. Patient does answer questions appropriately. Patient to undergo emergent hemodialysis and will likely need dialysis on discharge. Exam Narrative: GENERAL: Comfortable, no acute distress, drowsy HENMT: moist mucous membranes EYES: EOM intact b/l NECK: no lymphadenopathy RESPIRATORY: clear to auscultation CARDIO: RRR GI: soft, nontender, bowel sounds present : Urinary ca
[2023-03-05 15:03] LABS: Cryoglobulin, QL Negative (Negative)
[2023-03-05 16:44] LABS: Glucose Point of Care 99 mg/dl (65-105)
[2023-03-05 22:23] LABS: Glucose Point of Care 178 mg/dl (65-105)
[2023-03-06] VITALS (9 sets, daily range): BP systolic 113–141; BP diastolic 57–77; PULSE 59–76; RESP 14–20; TEMP 36.4–37.1; O2SAT 97–99
[2023-03-06] MEDS: SODIUM CHLORIDE 0.9% IV 1,000 ML 75 ML IV CONT ×2 (00:12→11:49)
[2023-03-06 06:14] LABS: Basophils Percent Auto 0.5 % (0.2-1.2); Eosinophils Absolute Auto 0.3 K/mm3 (0-0.3); Eosinophils Percent Auto 4.6 % (0-4.4); Hematocrit 29.5 % (42.0-52.0); Immature Granulocyte Absolute 0.06 K/mm3 (0.00-0.031); Lymphocytes Absolute Auto 0.68 K/mm3 (0.9-3.2); Lymphocytes Percent Auto 11.2 % (18.3-44.2); Mean Corpuscular HGB Conc 33.9 g/dl (32-36); Mean Corpuscular Hemoglobin 31.1 pg (26-34); Mean Corpuscular Volume 91.6 fl (80-100); Mean Platelet Volume 10.9 fl (7.4-10.4); Monocytes Absolute Auto 0.4 K/mm3 (0.1-0.6); Monocytes Percent Auto 6.4 % (2.6-8.5); Neutrophils Absolute Auto 4.6 K/mm3 (1.3-6.7); Neutrophils Percent Auto 76.3 % (45.5-73.1); Platelet Count Result 227 k/mm3 (150-375); Red Blood Count 3.22 M/mm3 (4.6-6.20); Red Cell Distribution Width 13.7 % (11.5-14.5); White Blood Count 6.1 K/mm3 (4.5-10.0)
[2023-03-06 06:33] LABS: Alanine Aminotransferase 86 U/L (6-50); Albumin Level 2.7 g/dL (3.5-5.1); Alkaline Phosphatase 102 U/L (38-126); Anion Gap 12 mmol/L (8-16); Aspartate Amino Transferase 55 U/L (17-59); Bilirubin,Total 0.6 mg/dL (0.2-1.3); Blood Urea Nitrogen 71 mg/dL (9-20); Calcium 7.2 mg/dL (8.4-10.2); Carbon Dioxide 26 mmol/L (22-30); Chloride 98 mmol/L (98-107); Estimated CRCL calculation 7 ml/min; Estimated Glomerular Filt Rate 6; Glucose 114 mg/dL (65-110); Phosphorus 6.2 mg/dL (2.5-4.5); Potassium 3.2 mmol/L (3.4-5.0); Sodium 136 mmol/L (137-145)
[2023-03-06 07:32] LABS: Glucose Point of Care 112 mg/dl (65-105)
[2023-03-06] MEDS: CALCIUM CARBONATE (OSCAL) 500 MG TABLET 1500 MG PO ×2 (08:46→11:49)
[2023-03-06] MEDS: SODIUM BICARBONATE TAB 650 MG TABLET 1300 MG PO (08:46)
[2023-03-06 11:12] LABS: Glucose Point of Care 184 mg/dl (65-105)
[2023-03-06] MEDS: cefTRIAXone 2 GM/NS 100 ML 2 GM/100 ML BAG IVPB (11:50)
--- NOTE | 2023-03-06 13:09 | P.PNIM_ITS ---
Progress Note: A&P Assessment and Plan (1) Acute on chronic renal failure: Code(s): N17.9 - Acute kidney failure, unspecified; N18.9 - Chronic kidney disease, unspecified Status: Acute Assessment and Plan: Followed by Dr. Monroy for chronic kidney disease stage IIIB thought to be related to hypertension and diabetes. Creatinine in November was 1.66. Creatinine on admission 14.6. Etiology unclear. * [place] catheter has been placed to monitor strict I/O. * Renal ultrasound revealed nephrolithiasis otherwise unremarkable * Started on a bicarbonate carbonate drip and discontinued on 03/01 * Nephrology has been consulted for their expertise. * Nephrotoxic medications on hold. * Patient's BUN and creatinine in not improving and patient and his family decided to go through with dialysis. * General surgery consulted to place emergent hemodialysis access at bedside. * Patient underwent 1st dialysis session on 03/05/2023. BUN and creatinine improved. (2) Urinary tract infection: Code(s): N39.0 - Urinary tract infection, site not specified Status: Acute Assessment and Plan: UA is positive for 1+ leukocyte esterase, greater than 100 WBC, WBC clumps, and 1+ bacteria. * Continue empiric ceftriaxone. * Urine culture positive for Serratia marcescens * Blood cultures positive for Serratia marcescens (1 bottle also had Staph epidermis and the other 1 had Staph hominis. I suspect both of these are contaminants.) * Rocephin increased to 2 g on 03/01/2023 * Repeat blood cultures have remained negative to date (3) Transaminitis: Code(s): R74.01 - Elevation of levels of liver transaminase levels Status: Acute Assessment and Plan: Abdominal exam is benign and CT of the abdomen and pelvis without contrast showed no findings to correlate. In light of the renal failure, a CK was checked and was elevated at 1309. I suppose it is plausible that his CK was higher and is now drifting downwards however he gives no history to suggest a reason for him to have rhabdomyolysis. * Hepatitis studies Negative * Hold adalimumab and rosuvastatin. * Continue to monitor closely. * liver enzymes trending down (4) Metabolic acidosis: Code(s): E87.20 - Acidosis, unspecified Status: Acute Assessment and Plan: Likely due to the renal failure itself. Sepsis seems less likely. Lactic acid within normal limits. * ABG showing carbon dioxide 13 with an anion gap of 19 on admission. * patient started on sodium bicarbonate 1300 mg tabs b.i.d.. (5) Electrolyte abnormality: Code(s): E87.8 - Other disorders of electrolyte and fluid balance, not elsewhere classified Status: Acute Assessment and Plan: * Sodium 130, chloride 93, potassium 3.1. * Continue to trend labs (6) Type 2 diabetes mellitus: Code(s): E11.9 - Type 2 diabetes mellitus without complications Status: Chronic Assessment and Plan: * Sitagliptin and empagliflozin on hold given acute kidney injury. * Initiate sliding scale insulin, Accu-Cheks, and hypoglycemic protocol. * Hemoglobin A1c is 6.9 * DM educator consult. (7) Hypertension: Code(s): I10 - Essential (primary) hypertension Status: Chronic Assessment and Plan: Blood pressures were reviewed and they have been stable, would expect them to be higher with nephritis. * Lisinopril on hold given acute kidney injury. * Continue to monitor blood pressur
--- NOTE | 2023-03-06 13:09 | PM.IMPN ---
Progress Note: A&P Assessment and Plan (1) Acute on chronic renal failure: Code(s): N17.9 - Acute kidney failure, unspecified; N18.9 - Chronic kidney disease, unspecified Status: Acute Assessment and Plan: Followed by Dr. Monroy for chronic kidney disease stage IIIB thought to be related to hypertension and diabetes. Creatinine in November was 1.66. Creatinine on admission 14.6. Etiology unclear. [place] catheter has been placed to monitor strict I/O. Renal ultrasound revealed nephrolithiasis otherwise unremarkable Started on a bicarbonate carbonate drip and discontinued on 03/01 Nephrology has been consulted for their expertise. Nephrotoxic medications on hold. Patient's BUN and creatinine in not improving and patient and his family decided to go through with dialysis. General surgery consulted to place emergent hemodialysis access at bedside. Patient underwent 1st dialysis session on 03/05/2023. BUN and creatinine improved. (2) Urinary tract infection: Code(s): N39.0 - Urinary tract infection, site not specified Status: Acute Assessment and Plan: UA is positive for 1+ leukocyte esterase, greater than 100 WBC, WBC clumps, and 1+ bacteria. Continue empiric ceftriaxone. Urine culture positive for Serratia marcescens Blood cultures positive for Serratia marcescens (1 bottle also had Staph epidermis and the other 1 had Staph hominis. I suspect both of these are contaminants.) Rocephin increased to 2 g on 03/01/2023 Repeat blood cultures have remained negative to date (3) Transaminitis: Code(s): R74.01 - Elevation of levels of liver transaminase levels Status: Acute Assessment and Plan: Abdominal exam is benign and CT of the abdomen and pelvis without contrast showed no findings to correlate. In light of the renal failure, a CK was checked and was elevated at 1309. I suppose it is plausible that his CK was higher and is now drifting downwards however he gives no history to suggest a reason for him to have rhabdomyolysis. Hepatitis studies Negative Hold adalimumab and rosuvastatin. Continue to monitor closely. liver enzymes trending down (4) Metabolic acidosis: Code(s): E87.20 - Acidosis, unspecified Status: Acute Assessment and Plan: Likely due to the renal failure itself. Sepsis seems less likely. Lactic acid within normal limits. ABG showing carbon dioxide 13 with an anion gap of 19 on admission. patient started on sodium bicarbonate 1300 mg tabs b.i.d.. (5) Electrolyte abnormality: Code(s): E87.8 - Other disorders of electrolyte and fluid balance, not elsewhere classified Status: Acute Assessment and Plan: Sodium 130, chloride 93, potassium 3.1. Continue to trend labs (6) Type 2 diabetes mellitus: Code(s): E11.9 - Type 2 diabetes mellitus without complications Status: Chronic Assessment and Plan: Sitagliptin and empagliflozin on hold given acute kidney injury. Initiate sliding scale insulin, Accu-Cheks, and hypoglycemic protocol. Hemoglobin A1c is 6.9 DM educator consult. (7) Hypertension: Code(s): I10 - Essential (primary) hypertension Status: Chronic Assessment and Plan: Blood pressures were reviewed and they have been stable, would expect them to be higher with nephritis. Lisinopril on hold given acute kidney injury. Continue to monitor blood pressures closely. Subjective Date/time seen: 03/06/23 13:09 Interval history: Patient appears to be doing much better today. He is less groggy and answers questions appropriately. He states that he did not remember much of yesterday. I answered all his questions regarding his dialysis the best my ability and referred most questions to [facility]. Spoke with care coordination in the process of setting up patient for outpatient dialysis. Exam Narrative:
--- NOTE | 2023-03-06 13:22 | P.PNNP_ITS ---
Progress Note: A&P Assessment and Plan (1) CALLI (acute kidney injury): Code(s): N17.9 - Acute kidney failure, unspecified Status: Acute Assessment and Plan: * acute kidney injury. * evaluation to date noted: * urine electrolytes non-prerenal * urine eosinophils negative * CPK mildly elevated but coming down * proteinuria noted * renal ultrasound w/o obstruction * suspect ATN from infection/sepsis (+ blood/urine culture noted) * would hold off on steroids or renal biopsy in this setting * Uremic symptoms are better after dialysis. * Will do another treatment tomorrow. * He will probably need dialysis for several treatments if not longer. So I asked Dr. Leiva to convert his temporary dialysis catheter to a tunneled line. * Will do another treatment tomorrow. I am not sure when the line is going to be done so the nurse will call ahead and find out tomorrow. * Potassium is a bit low. Will give a dose of potassium (2) Chronic kidney disease, stage 3b: Code(s): N18.32 - Chronic kidney disease, stage 3b Status: Chronic Assessment and Plan: * baseline creatinine runs ~ 1.6 - 2.0mg/dl in the last year * due to hypertension and diabetes (based on outpatient evaluation) (3) Sepsis: Code(s): A41.9 - Sepsis, unspecified organism Status: Acute Assessment and Plan: * blood culture with Serratia marcescens and Staphylococcus epidermidis * urine culture with Serratia marcescens * Source unclear. I am not sure if the urine growth is the primary issue or secondary to seeding. With Serratia it is less commonly a primary urinary source. * on ceftriaxone * complicated by immunosuppression (on Humira and methotrexate) * Blood cultures on 05/03 are negative so far * Blood pressure has been good. (4) Metabolic acidosis: Code(s): E87.20 - Acidosis, unspecified Status: Acute Assessment and Plan: * due to CALLI/ARF and infection * was on bicarbonate gtt to compensate - currently off * on oral sodium bicarb tabs * CO2 is improved at 26 * if still good tomorrow consider stopping his bicarb tablets. (5) Hypertension: Code(s): I10 - Essential (primary) hypertension Status: Chronic Assessment and Plan: * reasonable control at this time * Blood pressure in the 120s and 130 * lisinopril on hold (6) Type 2 diabetes mellitus: Code(s): E11.9 - Type 2 diabetes mellitus without complications Status: Chronic Assessment and Plan: * follow accu-cheks * He is off his oral agents. * Sugars have been lower at times. We discussed that this is because of the renal failure will check cortisol just in case. Liver enzymes were high better coming down. Bilirubin has been good the last few days Subjective Date/time seen: 03/06/23 13:22 Interval history: , son, and daughter are in the room. Didier is feeling better. He is less foggy dialysis went well yesterday Exam Narrative: General: WD/WN male in NAD Heart: normal S1 and S2; no rub or gallop Lungs: clear bilaterally Abdomen: soft, nontender, nondistended, positive bowel sounds Extremities: no cyanosis or clubbing; no edema Skin: No rashOr subcu nodules Objective Data Vital Signs Vital Signs: Vital Signs - 24 hr 03/05/23 13:50 03/05/23 16:00 03/05/23 13:30 Temperature 97.6 F Pulse Rate 79 64 7
--- NOTE | 2023-03-06 13:22 | PM.PNNEP ---
Progress Note: A&P Assessment and Plan (1) CALLI (acute kidney injury): Code(s): N17.9 - Acute kidney failure, unspecified Status: Acute Assessment and Plan: acute kidney injury. evaluation to date noted: urine electrolytes non-prerenal urine eosinophils negative CPK mildly elevated but coming down proteinuria noted renal ultrasound w/o obstruction suspect ATN from infection/sepsis (+ blood/urine culture noted) would hold off on steroids or renal biopsy in this setting Uremic symptoms are better after dialysis. Will do another treatment tomorrow. He will probably need dialysis for several treatments if not longer. So I asked Dr. Leiva to convert his temporary dialysis catheter to a tunneled line. Will do another treatment tomorrow. I am not sure when the line is going to be done so the nurse will call ahead and find out tomorrow. Potassium is a bit low. Will give a dose of potassium (2) Chronic kidney disease, stage 3b: Code(s): N18.32 - Chronic kidney disease, stage 3b Status: Chronic Assessment and Plan: baseline creatinine runs ~ 1.6 - 2.0mg/dl in the last year due to hypertension and diabetes (based on outpatient evaluation) (3) Sepsis: Code(s): A41.9 - Sepsis, unspecified organism Status: Acute Assessment and Plan: blood culture with Serratia marcescens and Staphylococcus epidermidis urine culture with Serratia marcescens Source unclear. I am not sure if the urine growth is the primary issue or secondary to seeding. With Serratia it is less commonly a primary urinary source. on ceftriaxone complicated by immunosuppression (on Humira and methotrexate) Blood cultures on 05/03 are negative so far Blood pressure has been good. (4) Metabolic acidosis: Code(s): E87.20 - Acidosis, unspecified Status: Acute Assessment and Plan: due to CALLI/ARF and infection was on bicarbonate gtt to compensate - currently off on oral sodium bicarb tabs CO2 is improved at 26 if still good tomorrow consider stopping his bicarb tablets. (5) Hypertension: Code(s): I10 - Essential (primary) hypertension Status: Chronic Assessment and Plan: reasonable control at this time Blood pressure in the 120s and 130 lisinopril on hold (6) Type 2 diabetes mellitus: Code(s): E11.9 - Type 2 diabetes mellitus without complications Status: Chronic Assessment and Plan: follow accu-cheks He is off his oral agents. Sugars have been lower at times. We discussed that this is because of the renal failure will check cortisol just in case. Liver enzymes were high better coming down. Bilirubin has been good the last few days Subjective Date/time seen: 03/06/23 13:22 Interval history: , son, and daughter are in the room. Didier is feeling better. He is less foggy dialysis went well yesterday Exam Narrative: General: WD/WN male in NAD Heart: normal S1 and S2; no rub or gallop Lungs: clear bilaterally Abdomen: soft, nontender, nondistended, positive bowel sounds Extremities: no cyanosis or clubbing; no edema Skin: No rashOr subcu nodules Objective Data Vital Signs Vital Signs: Vital Signs - 24 hr 03/05/23 13:50 03/05/23 16:00 03/05/23 13:30 Temperature 97.6 F Pulse Rate 79 64 75 Respiratory Rate 18 Blood Pressure 128/65 128/65 Pulse Oximetry 99 Oxygen Delivery 03/05/23 13:45 03/05/23 14:00 03/05/23 14:15 Temperature Pulse Rate 79 65 75 Respiratory Rate Blood Pressure 125/65 146/77 H 149/80 H Pulse Oximetry Oxygen Delivery 03/05/23 14:30 03/05/23 14:45 03/05/23 15:00 Temperature Pulse Rate 58 L 58 L 59 L Respiratory Rate Blood Pressure 137/79 173/79 H 176/76 H Pulse Oximetry Oxygen Delivery 03/05/23 15:15 03/05/23 15:30 03/05/23 15:45 Temperature Pulse Rate 57 L 56 L 65 Respi
[2023-03-06] MEDS: POTASSIUM CHLORIDE 20 MEQ ER TABLET PO (14:03)
--- NOTE | 2023-03-06 15:07 | PCPTNOTE ---
Patient reports he was told by his MD to hold off of therapy because he will be going down for a tunnel cath tomorrow and then do HD.
[2023-03-06 16:36] LABS: Glucose Point of Care 115 mg/dl (65-105)
[2023-03-06 20:53] LABS: Glucose Point of Care 127 mg/dl (65-105)
[2023-03-07] VITALS (25 sets, daily range): BP systolic 116–156; BP diastolic 58–87; PULSE 55–81; RESP 16–20; TEMP 36.2–37.1; O2SAT 98–100
[2023-03-07] MEDS: SODIUM CHLORIDE 0.9% IV 1,000 ML 75 ML IV CONT ×2 (01:55→21:30)
[2023-03-07 06:41] LABS: Basophils Percent Auto 0.6 % (0.2-1.2); Eosinophils Absolute Auto 0.4 K/mm3 (0-0.3); Eosinophils Percent Auto 6.4 % (0-4.4); Hematocrit 30.8 % (42.0-52.0); Hemoglobin 10.2 g/dL (14.0-18.0); Immature Granulocyte Absolute 0.07 K/mm3 (0.00-0.031); Lymphocytes Absolute Auto 0.89 K/mm3 (0.9-3.2); Mean Corpuscular HGB Conc 33.1 g/dl (32-36); Mean Corpuscular Hemoglobin 30.8 pg (26-34); Mean Corpuscular Volume 93.1 fl (80-100); Mean Platelet Volume 10.8 fl (7.4-10.4); Monocytes Absolute Auto 0.4 K/mm3 (0.1-0.6); Monocytes Percent Auto 5.4 % (2.6-8.5); Neutrophils Absolute Auto 5.1 K/mm3 (1.3-6.7); Neutrophils Percent Auto 73.6 % (45.5-73.1); Platelet Count Result 234 k/mm3 (150-375); Red Blood Count 3.31 M/mm3 (4.6-6.20); White Blood Count 6.9 K/mm3 (4.5-10.0)
[2023-03-07 06:49] LABS: Alanine Aminotransferase 88 U/L (6-50); Albumin Level 2.8 g/dL (3.5-5.1); Alkaline Phosphatase 99 U/L (38-126); Anion Gap 10 mmol/L (8-16); Aspartate Amino Transferase 57 U/L (17-59); Bilirubin,Total 0.6 mg/dL (0.2-1.3); Blood Urea Nitrogen 64 mg/dL (9-20); Calcium 7.3 mg/dL (8.4-10.2); Carbon Dioxide 24 mmol/L (22-30); Chloride 99 mmol/L (98-107); Estimated CRCL calculation 7 ml/min; Estimated Glomerular Filt Rate 6; Glucose 87 mg/dL (65-110); Phosphorus 5.6 mg/dL (2.5-4.5); Potassium 3.3 mmol/L (3.4-5.0); Sodium 133 mmol/L (137-145)
[2023-03-07 07:53] LABS: Glucose Point of Care 92 mg/dl (65-105)
--- NOTE | 2023-03-07 10:00 | PCPTNOTE ---
Attempted PT evaluation, pt at dialysis. Will follow.
--- NOTE | 2023-03-07 10:15 | P.PNNP_ITS ---
Progress Note: A&P Assessment and Plan (1) CALLI (acute kidney injury): Code(s): N17.9 - Acute kidney failure, unspecified Status: Acute Assessment and Plan: * evaluation to date noted: * urine electrolytes non-prerenal * urine eosinophils negative * CPK mildly elevated but coming down * proteinuria noted * renal ultrasound w/o obstruction * suspect ATN from infection/sepsis (+ blood/urine culture noted) * uremic symptoms are better after dialysis. * as he will probably need dialysis for several treatments if not longer; plan for tunneled HD catheter for outpatient dialysis * HD today -- outpatient dialysis being arranged (2) Chronic kidney disease, stage 3b: Code(s): N18.32 - Chronic kidney disease, stage 3b Status: Chronic Assessment and Plan: * baseline creatinine runs ~ 1.6 - 2.0mg/dl in the last year * due to hypertension and diabetes (based on outpatient evaluation) (3) Sepsis: Code(s): A41.9 - Sepsis, unspecified organism Status: Acute Assessment and Plan: * blood culture with Serratia marcescens and Staphylococcus epidermidis * urine culture with Serratia marcescens * on ceftriaxone * complicated by immunosuppression (on Humira and methotrexate) * blood cultures on 05/03 are negative so far * blood pressure stable (4) Metabolic acidosis: Code(s): E87.20 - Acidosis, unspecified Status: Acute Assessment and Plan: * due to CALLI/ARF and infection * was on bicarbonate gtt to compensate - currently off * was on oral sodium bicarb tabs as well - discontinued * dialysis helping to correct (5) Hypertension: Code(s): I10 - Essential (primary) hypertension Status: Chronic Assessment and Plan: * reasonable control at this time * lisinopril on hold * follow trend of hemodynamics (6) Type 2 diabetes mellitus: Code(s): E11.9 - Type 2 diabetes mellitus without complications Status: Chronic Assessment and Plan: * follow accu-cheks * glycemic control per hospitalists Will continue to follow. Subjective Date/time seen: 03/07/23 10:15 Interval history: Follow-up for acute kidney injury/acute renal failure on chronic kidney disease. Tolerating dialysis at the time of my visit (seen on HD at 10:00AM); initiated on dialysis over the weekend due to porgressive symptoms of uremia; continues to make good urine output; no apparent distress noted; states he does feel a bit better following dialysis treatment on Tuesday. Exam Narrative: General: WD/WN male in NAD Heart: normal S1 and S2; no rub Lungs: clear bilaterally Abdomen: soft, nontender, nondistended, positive bowel sounds Extremities: no cyanosis or clubbing; no edema Skin: Warm and dry Objective Data Vital Signs Vital Signs: Vital Signs Temp Pulse Resp BP Pulse Ox O2 Del Method 03/07/23 10:15 59 L 133/68 03/07/23 10:00 60 130/68 03/07/23 09:45 55 L 130/61 03/07/23 09:30 57 L 116/58 L 03/07/23 09:15 59 L 116/59 L 03/07/23 09:00 61 144/75 H 03/07/23 08:54 68 139/77 03/07/23 08:15 98.3 F 74 20 156/87 H 03/07/23 05:51 98.8 F 67 18 130/69 100 03/07/23 04:00 55 L 03/07/23 00:00 56 L 03/06/23 21:48 98.7 F 65 18 140/73
--- NOTE | 2023-03-07 10:15 | PM.PNNEP ---
Progress Note: A&P Assessment and Plan (1) CALLI (acute kidney injury): Code(s): N17.9 - Acute kidney failure, unspecified Status: Acute Assessment and Plan: evaluation to date noted: urine electrolytes non-prerenal urine eosinophils negative CPK mildly elevated but coming down proteinuria noted renal ultrasound w/o obstruction suspect ATN from infection/sepsis (+ blood/urine culture noted) uremic symptoms are better after dialysis. as he will probably need dialysis for several treatments if not longer; plan for tunneled HD catheter for outpatient dialysis HD today -- outpatient dialysis being arranged (2) Chronic kidney disease, stage 3b: Code(s): N18.32 - Chronic kidney disease, stage 3b Status: Chronic Assessment and Plan: baseline creatinine runs ~ 1.6 - 2.0mg/dl in the last year due to hypertension and diabetes (based on outpatient evaluation) (3) Sepsis: Code(s): A41.9 - Sepsis, unspecified organism Status: Acute Assessment and Plan: blood culture with Serratia marcescens and Staphylococcus epidermidis urine culture with Serratia marcescens on ceftriaxone complicated by immunosuppression (on Humira and methotrexate) blood cultures on 05/03 are negative so far blood pressure stable (4) Metabolic acidosis: Code(s): E87.20 - Acidosis, unspecified Status: Acute Assessment and Plan: due to CALLI/ARF and infection was on bicarbonate gtt to compensate - currently off was on oral sodium bicarb tabs as well - discontinued dialysis helping to correct (5) Hypertension: Code(s): I10 - Essential (primary) hypertension Status: Chronic Assessment and Plan: reasonable control at this time lisinopril on hold follow trend of hemodynamics (6) Type 2 diabetes mellitus: Code(s): E11.9 - Type 2 diabetes mellitus without complications Status: Chronic Assessment and Plan: follow accu-cheks glycemic control per hospitalists Will continue to follow. Subjective Date/time seen: 03/07/23 10:15 Interval history: Follow-up for acute kidney injury/acute renal failure on chronic kidney disease. Tolerating dialysis at the time of my visit (seen on HD at 10:00AM); initiated on dialysis over the weekend due to porgressive symptoms of uremia; continues to make good urine output; no apparent distress noted; states he does feel a bit better following dialysis treatment on Tuesday. Exam Narrative: General: WD/WN male in NAD Heart: normal S1 and S2; no rub Lungs: clear bilaterally Abdomen: soft, nontender, nondistended, positive bowel sounds Extremities: no cyanosis or clubbing; no edema Skin: Warm and dry Objective Data Vital Signs Vital Signs: Vital Signs Temp Pulse Resp BP Pulse Ox O2 Del Method 03/07/23 10:15 59 L 133/68 03/07/23 10:00 60 130/68 03/07/23 09:45 55 L 130/61 03/07/23 09:30 57 L 116/58 L 03/07/23 09:15 59 L 116/59 L 03/07/23 09:00 61 144/75 H 03/07/23 08:54 68 139/77 03/07/23 08:15 98.3 F 74 20 156/87 H 03/07/23 05:51 98.8 F 67 18 130/69 100 03/07/23 04:00 55 L 03/07/23 00:00 56 L 03/06/23 21:48 98.7 F 65 18 140/73 99 03/06/23 20:00 65 03/06/23 16:00 59 L 03/06/23 13:59 98.5 F 73 20 141/77 H 99 Intake/Output Intake/Output: Intake & Output 03/04/23 03/05/23 03/06/23 03/07/23 23:59 23:59 23:59 23:59 Intake Total 2620 2344 4772 1100 Output Total 3650 4000 2900 1400 Balance -1030 -1656 1872 -300 Meds/Results Medications: Active Medications Generic Name Dose Route Start Last Admin Trade Name Freq PRN Reason Stop Dose Admin Dextrose 12.5 gm 02/26/23 17:14 Dextrose 50% 25 Gm/50 Ml Syringe IV PUSH PRN PRN Hypoglycemia Protocol Glucagon 1 mg 02/26/23 17:14 Glucagon For Inj 1 Mg Vial IM
[2023-03-07] MEDS: HEPARIN SODIUM 1,000 UNITS/ML VIAL 3000 UNITS IV PUSH (12:17)
[2023-03-07] MEDS: cefTRIAXone 2 GM/NS 100 ML 2 GM/100 ML BAG IVPB (13:43)
--- NOTE | 2023-03-07 14:52 | PCOTNOTE ---
Pt in dialysis this am. Will continue to follow.
--- NOTE | 2023-03-07 15:34 | P.PNIM_ITS ---
Progress Note: A&P Assessment and Plan (1) Acute on chronic renal failure: Code(s): N17.9 - Acute kidney failure, unspecified; N18.9 - Chronic kidney disease, unspecified Status: Acute Assessment and Plan: Followed by Dr. Monroy for chronic kidney disease stage IIIB thought to be related to hypertension and diabetes. Creatinine in November was 1.66. Creatinine on admission 14.6. Etiology unclear. * [place] catheter has been placed to monitor strict I/O. * Renal ultrasound revealed nephrolithiasis otherwise unremarkable. * Started on a bicarbonate carbonate drip and discontinued on 03/01. * Nephrology has been consulted for their expertise. * Nephrotoxic medications on hold. * Patient's BUN and creatinine in not improving and patient and his family decided to go through with dialysis. * General surgery consulted to place emergent hemodialysis access at bedside. * Patient underwent 1st dialysis session on 03/05/2023. BUN and creatinine improved. (2) Urinary tract infection: Code(s): N39.0 - Urinary tract infection, site not specified Status: Acute Assessment and Plan: UA is positive for 1+ leukocyte esterase, greater than 100 WBC, WBC clumps, and 1+ bacteria. * Continue empiric ceftriaxone. * Urine culture positive for Serratia marcescens * Blood cultures positive for Serratia marcescens (1 bottle also had Staph epidermis and the other 1 had Staph hominis. I suspect both of these are contaminants.) * Rocephin increased to 2 g on 03/01/2023 * Repeat blood cultures have remained negative to date (3) Transaminitis: Code(s): R74.01 - Elevation of levels of liver transaminase levels Status: Acute Assessment and Plan: Abdominal exam is benign and CT of the abdomen and pelvis without contrast showed no findings to correlate. In light of the renal failure, a CK was checked and was elevated at 1309. I suppose it is plausible that his CK was higher and is now drifting downwards however he gives no history to suggest a reason for him to have rhabdomyolysis. * Hepatitis studies Negative * Hold adalimumab and rosuvastatin. * Continue to monitor closely. * liver enzymes trending down (4) Metabolic acidosis: Code(s): E87.20 - Acidosis, unspecified Status: Acute Assessment and Plan: Likely due to the renal failure itself. Sepsis seems less likely. Lactic acid within normal limits. * ABG showing carbon dioxide 13 with an anion gap of 19 on admission. * patient started on sodium bicarbonate 1300 mg tabs b.i.d.. (5) Electrolyte abnormality: Code(s): E87.8 - Other disorders of electrolyte and fluid balance, not elsewhere classified Status: Acute Assessment and Plan: * Sodium 133, chloride 99, potassium 3.3. * Continue to trend labs (6) Type 2 diabetes mellitus: Code(s): E11.9 - Type 2 diabetes mellitus without complications Status: Chronic Assessment and Plan: * Sitagliptin and empagliflozin on hold given acute kidney injury. * Initiate sliding scale insulin, Accu-Cheks, and hypoglycemic protocol. * Hemoglobin A1c is 6.9 * DM educator consult. (7) Hypertension: Code(s): I10 - Essential (primary) hypertension Status: Chronic Assessment and Plan: Blood pressures were reviewed and they have been stable, would expect them to be higher with nephritis. * Lisinopril on hold given acute kidney injury. * Continue to monitor blood pressu
--- NOTE | 2023-03-07 15:34 | PM.IMPN ---
Progress Note: A&P Assessment and Plan (1) Acute on chronic renal failure: Code(s): N17.9 - Acute kidney failure, unspecified; N18.9 - Chronic kidney disease, unspecified Status: Acute Assessment and Plan: Followed by Dr. Monroy for chronic kidney disease stage IIIB thought to be related to hypertension and diabetes. Creatinine in November was 1.66. Creatinine on admission 14.6. Etiology unclear. [place] catheter has been placed to monitor strict I/O. Renal ultrasound revealed nephrolithiasis otherwise unremarkable. Started on a bicarbonate carbonate drip and discontinued on 03/01. Nephrology has been consulted for their expertise. Nephrotoxic medications on hold. Patient's BUN and creatinine in not improving and patient and his family decided to go through with dialysis. General surgery consulted to place emergent hemodialysis access at bedside. Patient underwent 1st dialysis session on 03/05/2023. BUN and creatinine improved. (2) Urinary tract infection: Code(s): N39.0 - Urinary tract infection, site not specified Status: Acute Assessment and Plan: UA is positive for 1+ leukocyte esterase, greater than 100 WBC, WBC clumps, and 1+ bacteria. Continue empiric ceftriaxone. Urine culture positive for Serratia marcescens Blood cultures positive for Serratia marcescens (1 bottle also had Staph epidermis and the other 1 had Staph hominis. I suspect both of these are contaminants.) Rocephin increased to 2 g on 03/01/2023 Repeat blood cultures have remained negative to date (3) Transaminitis: Code(s): R74.01 - Elevation of levels of liver transaminase levels Status: Acute Assessment and Plan: Abdominal exam is benign and CT of the abdomen and pelvis without contrast showed no findings to correlate. In light of the renal failure, a CK was checked and was elevated at 1309. I suppose it is plausible that his CK was higher and is now drifting downwards however he gives no history to suggest a reason for him to have rhabdomyolysis. Hepatitis studies Negative Hold adalimumab and rosuvastatin. Continue to monitor closely. liver enzymes trending down (4) Metabolic acidosis: Code(s): E87.20 - Acidosis, unspecified Status: Acute Assessment and Plan: Likely due to the renal failure itself. Sepsis seems less likely. Lactic acid within normal limits. ABG showing carbon dioxide 13 with an anion gap of 19 on admission. patient started on sodium bicarbonate 1300 mg tabs b.i.d.. (5) Electrolyte abnormality: Code(s): E87.8 - Other disorders of electrolyte and fluid balance, not elsewhere classified Status: Acute Assessment and Plan: Sodium 133, chloride 99, potassium 3.3. Continue to trend labs (6) Type 2 diabetes mellitus: Code(s): E11.9 - Type 2 diabetes mellitus without complications Status: Chronic Assessment and Plan: Sitagliptin and empagliflozin on hold given acute kidney injury. Initiate sliding scale insulin, Accu-Cheks, and hypoglycemic protocol. Hemoglobin A1c is 6.9 DM educator consult. (7) Hypertension: Code(s): I10 - Essential (primary) hypertension Status: Chronic Assessment and Plan: Blood pressures were reviewed and they have been stable, would expect them to be higher with nephritis. Lisinopril on hold given acute kidney injury. Continue to monitor blood pressures closely. Subjective Date/time seen: 03/07/23 15:34 Interval history: Patient feeling well today and voices that he is ready to go home. According to Nephrology is no it looks like there wanting his temporary dialysis catheter to be a tunneled line. Nephrology working closely with General surgery on this. Exam Narrative: GENERAL: Comfortable, no acute distress HENMT: moist mucous membranes EYES: EOM intact b/l NECK: no lymphadenopathy RESPIRA
[2023-03-07 16:41] LABS: Glucose Point of Care 98 mg/dl (65-105)
[2023-03-07 20:01] LABS: Glucose Point of Care 177 mg/dl (65-105)
[2023-03-08] VITALS (36 sets, daily range): BP systolic 88–133; BP diastolic 63–80; PULSE 64–133; RESP 14–28; TEMP 35.9–37.1; O2SAT 90–100
--- NOTE | 2023-03-08 06:18 | PC.NURSE ---
This patient was picked up by preop at 0620 for tunneled dialysis catheter placement.
[2023-03-08 06:50] LABS: Glucose Point of Care 98 mg/dl (65-105)
--- NOTE | 2023-03-08 07:16 | WPDHPUPDATE1 ---
History and Physical Update Update Date/Time: 03/08/23 07:16 History and Physical has been reviewed, including an updated exam of the patient. There are NO changes in the patient's condition. Risks, benefits, and alternatives have been discussed and questions answered. Patient agrees to proceed with procedure.
--- NOTE | 2023-03-08 08:11 | P.OP_ITS ---
Procedure Note - Detailed Date of Procedure 03/08/23 Pre-op Diagnosis Acute Renal Failure Post-op Diagnosis Same Procedure Performed Placement of right internal jugular 28 cm tunneled hemodialysis catheter under fluoroscopic guidance Surgeon Olivia Leiva MD Anesthesia MAC and Local Indications 67-year-old male with renal failure status post placement of temporary dialysis catheter for emergent dialysis now needing more permanent access for continued outpatient dialysis Findings wire exchange of previously placed right internal jugular temporary dialysis catheter Description of Procedure The patient was taken the operating room placed in the supine position. After adequate induction of MAC anesthesia, the patient was prepped and draped in the normal sterile fashion. A time-out was then done to verify the patient's identity, as well as the procedure being performed. I began by using fluoroscopy to identify the previously placed catheter in the right internal jugular vein. This was noted to be in good position. I then placed a guidewire through the catheter into the right internal jugular vein. Once the guidewire was in place, the previously placed catheter was removed in full. I then me asured an area in the right chest for placement the tunneled dialysis catheter. A 28 cm tunneled dialysis catheter was chosen given the anatomy. I then localized an area in the right chest including the tract to the right neck. I then made a small incision in the insertion site in the right chest. I was then able to tunnel the catheter from the chest to the insertion site in the neck. I then serially dilated the right internal jugular vein under sterile Seldinger technique and fluoroscopic guidance. The dilating sheath was then placed into the right internal jugular vein over the guidewire under fluoroscopic guidance. Once in proper position, the guidewire and the dilator removed just leaving the sheath in the vein. I then fed the catheter into the sheath and subsequently into the right internal jugular vein. Once in proper position, the sheath was peeled away just leaving the catheter in the right internal jugular vein. Final fluoroscopic view showed the catheter in good position with its termination point near the atrial caval junction and a nice smooth curvature in the neck. I was able to easily draw and flush from both port sites. 2.2 and 2.3 mL of final heparin flush were placed in each port as directed. The catheter were sutured into place in the right chest. The incision site in the neck was closed with 4- 0 Monocryl subcuticular suture followed by dermabond. The patient tolerated the procedure well and was alert and awake postop. He will be transferred to the recovery room in stable condition. Implants 28 cm right internal jugular tunneled hemodialysis catheter Estimated Blood Loss 5 Drains No Packing No Pathology None sent Complications No immediate complications Condition Stable Disposition PACU [facility] Billing Surgery - Charge Forward: Surgery Billing
[2023-03-08] MEDS: SODIUM CHLORIDE 0.9% IV 500 ML 30 ML IV CONT (08:17)
[2023-03-08] MEDS: LIDO 1%/EPINEPHRINE 1:100,000 50 ML VIAL 20 ML INFILTRATE (08:20)
[2023-03-08] MEDS: HEPARIN SODIUM 5,000 UNITS/ML VIAL 5000 UNITS XX (08:21)
[2023-03-08] MEDS: HEPARIN SODIUM, PORCINE 10,000 UNITS/10 ML VIAL 4500 UNITS XX (08:23)
[2023-03-08] MEDS: ONDANSETRON INJ 4 MG/2 ML VIAL IV PUSH (08:31)
[2023-03-08 08:35] LABS: Glucose Point of Care 104 mg/dl (65-105)
--- NOTE | 2023-03-08 08:45 | PCPTNOTE ---
Attempted PT evaluation, pt off the unit. Will follow.
--- NOTE | 2023-03-08 08:52 | SUR.PHASEI ---
0838 - chest xray noted, no pneumothorax
--- NOTE | 2023-03-08 11:00 | P.PNIM_ITS ---
Progress Note: A&P Assessment and Plan (1) Acute on chronic renal failure: Code(s): N17.9 - Acute kidney failure, unspecified; N18.9 - Chronic kidney disease, unspecified Status: Acute Assessment and Plan: Followed by Dr. Monroy for chronic kidney disease stage IIIB thought to be related to hypertension and diabetes. Creatinine in November was 1.66. Creatinine on admission 14.6. Etiology unclear. * [place] catheter has been placed to monitor strict I/O. * Renal ultrasound revealed nephrolithiasis otherwise unremarkable. * Started on a bicarbonate carbonate drip and discontinued on 03/01. * Nephrology has been consulted for their expertise. * Nephrotoxic medications on hold. * Patient's BUN and creatinine in not improving and patient and his family decided to go through with dialysis. * General surgery consulted to place emergent hemodialysis access at bedside. * Patient underwent 1st dialysis session on 03/05/2023. BUN and creatinine improved. * It is presumed that patient wall undergo dialysis on Tuesday. * Discussed with Nephrology and they are okay with discharge once patient's outpatient dialysis treatments are range through care coordination. (2) Urinary tract infection: Code(s): N39.0 - Urinary tract infection, site not specified Status: Acute Assessment and Plan: UA is positive for 1+ leukocyte esterase, greater than 100 WBC, WBC clumps, and 1+ bacteria. * Urine culture positive for Serratia marcescens * Blood cultures positive for Serratia marcescens (1 bottle also had Staph epidermis and the other 1 had Staph hominis. I suspect both of these are contaminants.) * Rocephin increased to 2 g on 03/01/2023 and treatment completed on 03/07/2023. * Repeat blood cultures have remained negative to date (3) Transaminitis: Code(s): R74.01 - Elevation of levels of liver transaminase levels Status: Acute Assessment and Plan: Abdominal exam is benign and CT of the abdomen and pelvis without contrast showed no findings to correlate. In light of the renal failure, a CK was checked and was elevated at 1309. I suppose it is plausible that his CK was higher and is now drifting downwards however he gives no history to suggest a reason for him to have rhabdomyolysis. * Hepatitis studies Negative * Hold adalimumab and rosuvastatin. * Continue to monitor closely. * liver enzymes trending down (4) Metabolic acidosis: Code(s): E87.20 - Acidosis, unspecified Status: Resolved Assessment and Plan: Likely due to the renal failure itself. Sepsis seems less likely. Lactic acid within normal limits. * ABG showing carbon dioxide 13 with an anion gap of 19 on admission. * Sodium bicarbonate 1300 mg tabs b.i.d. DC on 03/06/23 (5) Electrolyte abnormality: Code(s): E87.8 - Other disorders of electrolyte and fluid balance, not elsewhere classified Status: Resolved Assessment and Plan: Patient developed low sodium, low chloride and low potassium. All have resolved. (6) Type 2 diabetes mellitus: Code(s): E11.9 - Type 2 diabetes mellitus without complications Status: Chronic Assessment and Plan: * Sitagliptin and empagliflozin on hold given acute kidney injury. * Initiate sliding scale insulin, Accu-Cheks, and hypoglycemic protocol. * Hemoglobin A1c is 6.9 * DM educator consult. (7) Hypertension: Code(s): I10 - Essential (primary) hypertension
--- NOTE | 2023-03-08 11:00 | PM.IMPN ---
Progress Note: A&P Assessment and Plan (1) Acute on chronic renal failure: Code(s): N17.9 - Acute kidney failure, unspecified; N18.9 - Chronic kidney disease, unspecified Status: Acute Assessment and Plan: Followed by Dr. Monroy for chronic kidney disease stage IIIB thought to be related to hypertension and diabetes. Creatinine in November was 1.66. Creatinine on admission 14.6. Etiology unclear. [place] catheter has been placed to monitor strict I/O. Renal ultrasound revealed nephrolithiasis otherwise unremarkable. Started on a bicarbonate carbonate drip and discontinued on 03/01. Nephrology has been consulted for their expertise. Nephrotoxic medications on hold. Patient's BUN and creatinine in not improving and patient and his family decided to go through with dialysis. General surgery consulted to place emergent hemodialysis access at bedside. Patient underwent 1st dialysis session on 03/05/2023. BUN and creatinine improved. It is presumed that patient wall undergo dialysis on Tuesday. Discussed with Nephrology and they are okay with discharge once patient's outpatient dialysis treatments are range through care coordination. (2) Urinary tract infection: Code(s): N39.0 - Urinary tract infection, site not specified Status: Acute Assessment and Plan: UA is positive for 1+ leukocyte esterase, greater than 100 WBC, WBC clumps, and 1+ bacteria. Urine culture positive for Serratia marcescens Blood cultures positive for Serratia marcescens (1 bottle also had Staph epidermis and the other 1 had Staph hominis. I suspect both of these are contaminants.) Rocephin increased to 2 g on 03/01/2023 and treatment completed on 03/07/2023. Repeat blood cultures have remained negative to date (3) Transaminitis: Code(s): R74.01 - Elevation of levels of liver transaminase levels Status: Acute Assessment and Plan: Abdominal exam is benign and CT of the abdomen and pelvis without contrast showed no findings to correlate. In light of the renal failure, a CK was checked and was elevated at 1309. I suppose it is plausible that his CK was higher and is now drifting downwards however he gives no history to suggest a reason for him to have rhabdomyolysis. Hepatitis studies Negative Hold adalimumab and rosuvastatin. Continue to monitor closely. liver enzymes trending down (4) Metabolic acidosis: Code(s): E87.20 - Acidosis, unspecified Status: Resolved Assessment and Plan: Likely due to the renal failure itself. Sepsis seems less likely. Lactic acid within normal limits. ABG showing carbon dioxide 13 with an anion gap of 19 on admission. Sodium bicarbonate 1300 mg tabs b.i.d. DC on 03/06/23 (5) Electrolyte abnormality: Code(s): E87.8 - Other disorders of electrolyte and fluid balance, not elsewhere classified Status: Resolved Assessment and Plan: Patient developed low sodium, low chloride and low potassium. All have resolved. (6) Type 2 diabetes mellitus: Code(s): E11.9 - Type 2 diabetes mellitus without complications Status: Chronic Assessment and Plan: Sitagliptin and empagliflozin on hold given acute kidney injury. Initiate sliding scale insulin, Accu-Cheks, and hypoglycemic protocol. Hemoglobin A1c is 6.9 DM educator consult. (7) Hypertension: Code(s): I10 - Essential (primary) hypertension Status: Chronic Assessment and Plan: Blood pressures were reviewed and they have been stable, would expect them to be higher with nephritis. Lisinopril on hold given acute kidney injury. Continue to monitor blood pressures closely. Subjective Date/time seen: 03/08/23 11:00 Interval history: Patient has completed antibiotic therapy as of yesterday. Discussed with management supervisor patient will likely be on Tuesday d
[2023-03-08 12:15] LABS: Glucose Point of Care 137 mg/dl (65-105)
[2023-03-08 12:20] LABS: Hematocrit 32.4 % (42.0-52.0); Hemoglobin 10.1 g/dL (14.0-18.0); Mean Corpuscular HGB Conc 31.2 g/dl (32-36); Mean Corpuscular Hemoglobin 30.4 pg (26-34); Mean Corpuscular Volume 97.6 fl (80-100); Mean Platelet Volume 11.2 fl (7.4-10.4); Platelet Count Result 223 k/mm3 (150-375); Red Blood Count 3.32 M/mm3 (4.6-6.20); Red Cell Distribution Width 14.2 % (11.5-14.5); White Blood Count 10.1 K/mm3 (4.5-10.0)
[2023-03-08 12:30] LABS: Anion Gap 9 mmol/L (8-16); Blood Urea Nitrogen 39 mg/dL (9-20); Calcium 7.5 mg/dL (8.4-10.2); Carbon Dioxide 28 mmol/L (22-30); Chloride 97 mmol/L (98-107); Estimated CRCL calculation 14 ml/min; Estimated Glomerular Filt Rate 11; Glucose 136 mg/dL (65-110); Potassium 3.7 mmol/L (3.4-5.0); Sodium 134 mmol/L (137-145)
--- NOTE | 2023-03-08 17:12 | PM.PNNEP ---
Progress Note: A&P Assessment and Plan (1) CALLI (acute kidney injury): Code(s): N17.9 - Acute kidney failure, unspecified Status: Acute Assessment and Plan: evaluation to date noted: urine electrolytes non-prerenal urine eosinophils negative CPK mildly elevated but coming down proteinuria noted renal ultrasound w/o obstruction suspect ATN from infection/sepsis (+ blood/urine culture noted) uremic symptoms are better after dialysis as he will probably need dialysis for several treatments if not longer; s/p tunneled HD catheter for outpatient dialysis HD today -- outpatient dialysis being arranged (reportedly will be on a T/T/S schedule) (2) Chronic kidney disease, stage 3b: Code(s): N18.32 - Chronic kidney disease, stage 3b Status: Chronic Assessment and Plan: baseline creatinine runs ~ 1.6 - 2.0mg/dl in the last year due to hypertension and diabetes (based on outpatient evaluation) (3) Sepsis: Code(s): A41.9 - Sepsis, unspecified organism Status: Acute Assessment and Plan: blood culture with Serratia marcescens and Staphylococcus epidermidis urine culture with Serratia marcescens on ceftriaxone complicated by immunosuppression (on Humira and methotrexate) blood cultures on 05/03 are negative so far blood pressure stable (4) Metabolic acidosis: Code(s): E87.20 - Acidosis, unspecified Status: Resolved Assessment and Plan: due to CALLI/ARF and infection was on bicarbonate gtt to compensate - currently off was on oral sodium bicarb tabs as well - discontinued dialysis helping to correct (5) Hypertension: Code(s): I10 - Essential (primary) hypertension Status: Chronic Assessment and Plan: reasonable control at this time lisinopril on hold follow trend of hemodynamics (6) Type 2 diabetes mellitus: Code(s): E11.9 - Type 2 diabetes mellitus without complications Status: Chronic Assessment and Plan: follow accu-cheks glycemic control per hospitalists Will continue to follow. Subjective Date/time seen: 03/08/23 17:12 Interval history: Follow-up for acute kidney injury/acute renal failure on chronic kidney disease. Tolerating dialysis at the time of my visit (seen on HD at 5:00PM); s/p tunneled HD catheter placement earlier this morning and tolerated this intervention as well; feels significantly better following initiation of dialysis; no apparent distress voiced. Exam Narrative: General: WD/WN male in NAD Heart: normal S1 and S2; no rub Lungs: clear bilaterally Abdomen: soft, nontender, nondistended, positive bowel sounds Extremities: no cyanosis or clubbing; no edema Skin: Warm and dry Objective Data Vital Signs Vital Signs: Vital Signs Temp Pulse Resp BP Pulse Ox O2 Del Method 03/08/23 16:00 109 H 03/08/23 12:00 106 H 03/08/23 13:04 Room Air 03/08/23 12:38 109 H 95 Room Air 03/08/23 11:20 98.7 F 89 16 117/73 98 03/08/23 10:20 98.0 F 86 16 116/64 100 03/08/23 10:20 Room Air 03/08/23 09:50 97.6 F 89 16 117/65 100 03/08/23 09:35 97.4 F L 98 16 116/69 100 03/08/23 09:15 110 H 20 116/78 100 Room Air 03/08/23 09:00 110 H 20 113/73 100 Room Air 03/08/23 08:45 110 H 16 94/63 L 100 Room Air 03/08/23 08:30 110 H 16 99/70 L 100 Room Air 03/08/23 08:17 97.4 F L 105 H 15 99/76 L 100 Room Air 03/08/23 06:32 98.7 F 73 18 133/71 98 Room Air 03/08/23 05:13 98.2 F 68 20 128/63 95 03/08/23 04:00 71 03/08/23 00:00 64 03/07/23 20:00 81 03/07/23 20:00 Room Air 03/07/23 20:40 98.8 F 78 18 131/71 98 Intake/Output Intake/Output: Intake & Output 03/05/23 03/06/23 03/07/23 03/08/23 23:59 23:59 23:59 23:59 Intake Total 2344 4772 2940 200 Output Total 4000 2900 2400 1400 Balance -1656 1872 540 -120
--- NOTE | 2023-03-08 17:12 | P.PNNP_ITS ---
Progress Note: A&P Assessment and Plan (1) CALLI (acute kidney injury): Code(s): N17.9 - Acute kidney failure, unspecified Status: Acute Assessment and Plan: * evaluation to date noted: * urine electrolytes non-prerenal * urine eosinophils negative * CPK mildly elevated but coming down * proteinuria noted * renal ultrasound w/o obstruction * suspect ATN from infection/sepsis (+ blood/urine culture noted) * uremic symptoms are better after dialysis * as he will probably need dialysis for several treatments if not longer; s/p tunneled HD catheter for outpatient dialysis * HD today -- outpatient dialysis being arranged (reportedly will be on a T/T/S schedule) (2) Chronic kidney disease, stage 3b: Code(s): N18.32 - Chronic kidney disease, stage 3b Status: Chronic Assessment and Plan: * baseline creatinine runs ~ 1.6 - 2.0mg/dl in the last year * due to hypertension and diabetes (based on outpatient evaluation) (3) Sepsis: Code(s): A41.9 - Sepsis, unspecified organism Status: Acute Assessment and Plan: * blood culture with Serratia marcescens and Staphylococcus epidermidis * urine culture with Serratia marcescens * on ceftriaxone * complicated by immunosuppression (on Humira and methotrexate) * blood cultures on 05/03 are negative so far * blood pressure stable (4) Metabolic acidosis: Code(s): E87.20 - Acidosis, unspecified Status: Resolved Assessment and Plan: * due to CALLI/ARF and infection * was on bicarbonate gtt to compensate - currently off * was on oral sodium bicarb tabs as well - discontinued * dialysis helping to correct (5) Hypertension: Code(s): I10 - Essential (primary) hypertension Status: Chronic Assessment and Plan: * reasonable control at this time * lisinopril on hold * follow trend of hemodynamics (6) Type 2 diabetes mellitus: Code(s): E11.9 - Type 2 diabetes mellitus without complications Status: Chronic Assessment and Plan: * follow accu-cheks * glycemic control per hospitalists Will continue to follow. Subjective Date/time seen: 03/08/23 17:12 Interval history: Follow-up for acute kidney injury/acute renal failure on chronic kidney disease. Tolerating dialysis at the time of my visit (seen on HD at 5:00PM); s/p tunneled HD catheter placement earlier this morning and tolerated this intervention as well; feels significantly better following initiation of dialysis; no apparent distress voiced. Exam Narrative: General: WD/WN male in NAD Heart: normal S1 and S2; no rub Lungs: clear bilaterally Abdomen: soft, nontender, nondistended, positive bowel sounds Extremities: no cyanosis or clubbing; no edema Skin: Warm and dry Objective Data Vital Signs Vital Signs: Vital Signs Temp Pulse Resp BP Pulse Ox O2 Del Method 03/08/23 16:00 109 H 03/08/23 12:00 106 H 03/08/23 13:04 Room Air 03/08/23 12:38 109 H 95 Room Air 03/08/23 11:20 98.7 F 89 16 117/73 98 03/08/23 10:20 98.0 F 86 16 116/64 100 03/08/23 10:20 Room Air 03/08/23 09:50 97.6 F 89 16 117/65 100 03/08/23 09:35 97.4 F L 98 16 116/69 100 03/08/23 09:15 110 H 20 116/78 100 Room Air 03/08/23 09:00 110 H 20
[2023-03-08] MEDS: HYDROcodone/acetaminophen (*CRX) 5-325 MG TABLET 1 TAB PO (17:22)
[2023-03-08 17:29] LABS: Glucose Point of Care 103 mg/dl (65-105)
--- NOTE | 2023-03-08 22:11 | ECG_ITS ---
Measurements Intervals [place] Rate: 128 P: 48 WA: 165 QRS: 90 QRSD: 92 T: 80 QT: 301 QTc: 440 Interpretive Statements SINUS TACHYCARDIA ST DEPRESSION, CONSIDER SUBENDOCARDIAL INJURY [0.1+ mV ST DEPRESSION] POOR R-WAVE PROGRESSION ABNORMAL ECG NO PREVIOUS ECG AVAILABLE FOR COMPARISON Electronically Signed On 03-09-2023 9:00:20 CDT by Luis Felipe Downey M.D.
[2023-03-08 22:28] LABS: Glucose Point of Care 150 mg/dl (65-105)
--- NOTE | 2023-03-08 22:36 | P.PNCROSS_ITS ---
Event Note Event Note Event Note: Received a call from insulation cupola charger at 22:08 with a change in patient condition. S: On routine vital checked the patient reported tightness or heaviness in the mid chest region associated with shortness of breath which was new within the last hour. SpO2 was 82% on room air and, he is currently on 6 L high-flow with improvement in oxygen saturations to the low 90s. Stat chest x-ray, EKG, and labs were ordered. O: Mildly ill-appearing gentleman in the semi-Andre position in bed. He does not appear in any respiratory distress but does have mild conversational dyspnea. Diffuse crackles heard anteriorly and at the flanks, right greater than left. He is tachycardic and looks to be in a sinus rhythm. EKG showed sinus tachycardia with ST depression in the inferior and lateral leads. Tunnel dialysis catheters in the right anterior chest. Abdomen is soft with positive bowel sounds. Skin is warm and dry. 1+ pretibial edema bilaterally. Peripheral pulses are intact. A: Acute respiratory failure with hypoxia, presumably secondary to volume overload. Tachycardia is likely due to the same although pulmonary embolism is in the differential diagnosis although seems less likely. ST depression noted in the inferolateral leads which is concerning for ischemia. P: IV furosemide 20 mg x 1. Discontinue IV fluids. ASA 324 mg x1. Follow-up chest x-ray and labs including troponins. Initial troponin is 10.800. He is being started on a heparin drip for NSTEMI. Repeat EKG shows mild improvement in the ST depressions with a slower rate. Dr. Kulkarni consulted via phone. Holding beta girish for now given soft blood pressures. Patient is being transferred to IMU. Critical Care Time Critical Care Time: Yes Total Critical Care Time: 55 Attestation: Due to a high probability of clinically significant, life threatening deterioration, the patient required my highest level of preparedness to intervene emergently and I personally spent this critical care time directly and personally managing the patient. This critical care time included obtaining a h istory; examining the patient; pulse oximetry; ordering and review of studies; arranging urgent treatment with development of a management plan; evaluation of patient's response to treatment; frequent reassessment; and discussions with other providers. It was exclusive of separately billable procedures and treating other patients and teaching time. Please see Assessment and Plan section and the rest of the note for further information on patient assessment and treatment.
[2023-03-08] MEDS: ASPIRIN 81 MG CHEWABLE TABLET 324 MG PO (22:37)
[2023-03-08] MEDS: FUROSEMIDE INJ 40 MG/4 ML VIAL 20 MG IV PUSH (22:37)
[2023-03-08 22:45] LABS: Alveolar/Arterial O2 Gradient 225.8 mmHg; Base Excess ABG -2.7 mEq/l (+/-2.0); Carboxyhemoglobin 0.8 % THb (0-2.0); Fractional Inspired Oxygen 44 %; HCO3 ABG 19.6 mEq/l (22.0-26.0); Methemoglobin ABG 0.2 %THb (0-1.5); Modified Allen's Test Pass; Oxygen Content ABG 18.8 %vol (16.0-22.0); Oxygen Saturation ABG 91.2 % (95.0-100.0); Oxyhemoglobin 88.7 % THb (90.0-100.0); PO2 FiO2 Ratio Arterial Blood 1.27 %; Reduced Hemoglobin 10.3 %THb (0-5.0); Site Drawn RIGHT RADIAL; Total Hemoglobin 15.1 g/dL (12.0-18.0); pH ABG 7.462 (7.350-7.450)
[2023-03-08 22:46] LABS: Device NASAL CANNULA
[2023-03-08 23:11] LABS: Hematocrit 31.3 % (42.0-52.0); Hemoglobin 9.9 g/dL (14.0-18.0); Mean Corpuscular HGB Conc 31.6 g/dl (32-36); Mean Corpuscular Hemoglobin 30.2 pg (26-34); Mean Corpuscular Volume 95.4 fl (80-100); Mean Platelet Volume 11.2 fl (7.4-10.4); Platelet Count Result 227 k/mm3 (150-375); Red Blood Count 3.28 M/mm3 (4.6-6.20); Red Cell Distribution Width 14.4 % (11.5-14.5); White Blood Count 13.3 K/mm3 (4.5-10.0)
[2023-03-08 23:29] LABS: Alanine Aminotransferase 76 U/L (6-50); Albumin Level 2.9 g/dL (3.5-5.1); Alkaline Phosphatase 96 U/L (38-126); Anion Gap 12 mmol/L (8-16); Aspartate Amino Transferase 202 U/L (17-59); Bilirubin,Total 0.7 mg/dL (0.2-1.3); Blood Urea Nitrogen 22 mg/dL (9-20); Calcium 8.1 mg/dL (8.4-10.2); Carbon Dioxide 19 mmol/L (22-30); Chloride 102 mmol/L (98-107); Estimated CRCL calculation 19 ml/min; Estimated Glomerular Filt Rate 16; Glucose 137 mg/dL (65-110); Magnesium 1.7 mg/dL (1.6-2.3); Potassium 4.2 mmol/L (3.4-5.0); Sodium 133 mmol/L (137-145)
[2023-03-08 23:31] LABS: D Dimer 6.46 ug/mL (<0.48)
[2023-03-08 23:38] LABS: NT Pro B Type Natriuretic Pept 18000 pg/mL (19.9-100)
--- NOTE | 2023-03-08 23:39 | ECG_ITS ---
Measurements Intervals [place] Rate: 120 P: 58 MI: 148 QRS: 86 QRSD: 86 T: 80 QT: 325 QTc: 461 Interpretive Statements SINUS TACHYCARDIA MODERATE ST DEPRESSION, CONSIDER MYOCARDIAL ISCHEMIA ABNORMAL ECG COMPARED TO ECG 03/08/2023 22:24:52 NO SIGNIFICANT CHANGES Electronically Signed On 03-09-2023 9:02:49 CDT by Luis Felipe Downey M.D.
[2023-03-09] VITALS (28 sets, daily range): BP systolic 62–114; BP diastolic 48–86; PULSE 60–143; RESP 20–41; TEMP 35.8–36.6; O2SAT 90–100; BMI 31.7
[2023-03-09 00:18] LABS: INR 1.2; Partial Thromboplastin Time 30.9 SECONDS (22.3-36.8); Prothrombin Time 15.7 Seconds (11.1-14.7)
--- NOTE | 2023-03-09 00:22 | PC.NURSE ---
This RN gave report to Jenn BETTS at [phone]. Pt transfered to IMU room 212 in bed with at bedside.
[2023-03-09] MEDS: HEPARIN SOD/D5W 100 UNITS/ML 25,000 UNITS/250 ML BAG 10 UNITS IV CONT (00:34)
[2023-03-09] MEDS: HEPARIN SODIUM 5,000 UNITS/ML VIAL 4000 UNITS IV PUSH (00:35)
--- NOTE | 2023-03-09 00:54 | PC.NURSE ---
This patient, Didier Frazier, was received from [facility] on 03/09/23 at 0022. Patient/family oriented to unit policies and routines. Report received from ALPESH Gerard.
[2023-03-09] MEDS: FUROSEMIDE INJ 40 MG/4 ML VIAL 20 MG IV PUSH (01:30)
--- NOTE | 2023-03-09 02:52 | PM.EVENT ---
Event Note Event Note Event Note: 03/09/2023 approximately 02:00 Patient developed worsening shortness of breath. His oxygen requirement increased to 8 L high-flow and patient was still only satting 82%. Patient had respiratory rate in the mid 30s and was tachycardic with an increase in his heart rate from the 120s up to the 160s. I gave orders for BiPAP 10 over 6 and wean FiO2 as tolerated maintain oxygen saturations of 92%. Nursing staff and also reported the patient's blood pressures were in the mid 80s systolic. Earlier in the evening the patient had developed acute flash pulmonary edema and acute worsening oxygen requirement. Troponin obtained at that time was 10. Patient had been having chest tightness prior to transfer to the IMU but chest tightness has resolved now the patient is on heparin drip and BiPAP. The patient remained tachypneic with respiratory rate in the mid 20s and heart rate is in the 120s. Appears to be sinus rhythm on telemetry. Prior EKGs were reviewed demonstrating ST depression. Repeat EKG demonstrated improvement in degree of depression. Cardiology has ready been consulted. Patient had received 20 mg of IV Lasix earlier in the evening with repeat of 20 mg of Lasix on transfer to IMU. The patient has subsequently had approximately 600 mL and urine output. The patient had had ultrafiltration today without removal of additional fluid. I went to evaluate the patient he was not diaphoretic respiratory rate had improved but has diffuse crackles throughout a no longer exhibiting accessory muscle use he is tolerating BiPAP tidal volumes are ranging between 5 and 700 with a rate of 26 he has backup rate on BiPAP of 14. Repeat blood pressure after being placed on BiPAP was 111 over 60s. Patient reports significant improvement in symptoms. Assessment and plan: Acute hypoxic respiratory failure due to pulmonary edema--pulmonary edema due to fluid overload versus secondary to non STEMI. Patient's symptoms have improved on BiPAP. Patient's blood pressures will tolerate beta girish or nitrates at this time. End-stage renal disease with relatively new dialysis---nephrology has been consulted. I have asked nursing staff to update nephrology has to change in the patient's status as it is unclear in the notes whether not the patient is scheduled to have dialysis today or not. The patient will likely need some volume reduction. Non STEMI--patient did receive 3 in 24 mg aspirin. Cardiology has been consulted. Will repeat EKG in a.m.. I would like to bring the patient's heart rate down but given that he has been had several soft blood pressures I do not feel comfortable adding a beta-girish at this moment. Will monitor closely consider addition of beta-girish if blood pressures stabilize. 35 minute spent in critical care activities Due to a high probability of clinically significant, life threatening deterioration, the patient required my highest level of preparedness to intervene emergently and I personally spent this critical care time directly and personally managing the patient. This critical care time included obtaining a history; examining the patient; pulse oximetry; ordering and review of studies; arranging urgent treatment with development of a management plan; evaluation of patient's response to treatment; frequent reassessment; and discussions with other providers. It was exclusive of separately billable procedures and treating other patients and teaching time. Please see Assessment and Plan section and the rest of the note for further information on patient assessment and treatment.
[2023-03-09 05:00] LABS: Hematocrit 36.9 % (42.0-52.0); Hemoglobin 11.4 g/dL (14.0-18.0); Mean Corpuscular HGB Conc 30.9 g/dl (32-36); Mean Corpuscular Volume 100.3 fl (80-100); Mean Platelet Volume 11.4 fl (7.4-10.4); Platelet Count Result 230 k/mm3 (150-375); Red Blood Count 3.68 M/mm3 (4.6-6.20); Red Cell Distribution Width 14.6 % (11.5-14.5); White Blood Count 17.4 K/mm3 (4.5-10.0)
[2023-03-09 05:11] LABS: Anion Gap 15 mmol/L (8-16); Blood Urea Nitrogen 26 mg/dL (9-20); Calcium 8.4 mg/dL (8.4-10.2); Carbon Dioxide 19 mmol/L (22-30); Chloride 101 mmol/L (98-107); Estimated CRCL calculation 17 ml/min; Estimated Glomerular Filt Rate 13; Glucose 162 mg/dL (65-110); Potassium 4.7 mmol/L (3.4-5.0); Sodium 135 mmol/L (137-145)
[2023-03-09] MEDS: ONDANSETRON INJ 4 MG/2 ML VIAL IV PUSH (05:36)
[2023-03-09] MEDS: LORazepam INJ (*CRX) 2 MG/ML VIAL 0.5 MG IV PUSH (05:36)
[2023-03-09 07:25] LABS: Partial Thromboplastin Time 80.4 SECONDS (22.3-36.8)
--- NOTE | 2023-03-09 07:44 | PM.CNCAR ---
Assessment and Plan Assessment and plan (1) NSTEMI (non-ST elevated myocardial infarction): Code(s): I21.4 - Non-ST elevation (NSTEMI) myocardial infarction Status: Acute Assessment and Plan: Had chest pressure/sob last night, cp has resolved. Troponin trending very high up at 27. EKG initially had some ST depression in anterolateral leads but has improved. On heparin drip and aspirin. Hold on statin due to transaminitis. Start low dose Metoprolol 12.5 mg BID with parameters. Discuss risks/benefits/alternative to [facility] and patient and his is agreeable to it. Advise he would need to be able to lie flat and still for procedure. Will consult [facility] for it. (2) CALLI (acute kidney injury): Code(s): N17.9 - Acute kidney failure, unspecified Status: Acute Assessment and Plan: On hemodialysis. (3) Sepsis: Code(s): A41.9 - Sepsis, unspecified organism Status: Acute Assessment and Plan: Off antibiotics as subsequent blood cultures have been NTD. Had Serratia marcescens in blood and urine culture initially. (4) Mixed hyperlipidemia: Code(s): E78.2 - Mixed hyperlipidemia Status: Chronic Assessment and Plan: Hold statins due to transaminitis. (5) Benign essential hypertension: Code(s): I10 - Essential (primary) hypertension Status: Chronic Assessment and Plan: Low normal. (6) Transaminitis: Code(s): R74.01 - Elevation of levels of liver transaminase levels Status: Acute (7) Type 2 diabetes mellitus: Code(s): E11.9 - Type 2 diabetes mellitus without complications Status: Chronic Assessment and Plan: Manage as per hospitalist. History of Present Illness History of Present Illness Consult date/time: 03/09/23 07:44 Reason For Visit: Acute Renal Failure Narrative: 67 yr old man admitted through ER about 12 days ago for decrease urine output and malaise, found to have acute renal failure due to progression from DM/hypertension/dehydration/urosepsis started on hemodialysis, transaminitis, rhabdomyolysis. He has a history of DM, hypertension, dyslipidemia, psoriatic arthritis, anxiety, acute renal failure on hemodialysis now. Last night patient reports chest pressure with sob. Initial EKG showed sinus tachycardia with anterolateral ST depression, then subsequent EKG ST improved. Troponin level very elevated at 10 and trended up to 27 now. He is alert and oriented, but somewhat restless in bed, on Bipap to improve oxygenation. He currently is sob, but no longer having chest pain. Review of Systems Review of Systems: All systems reviewed & are unremarkable except as noted in HPI and below Constitutional: Constitutional: Reports as per HPI, Denies chills and Denies fever(s) Cardiovascular: Cardiovascular: Reports as per HPI, Reports chest pain, Denies irregular heart rhythm, Denies leg edema and Denies lightheadedness Respiratory: Respiratory: Reports as per HPI and Reports dyspnea Gastrointestinal: Gastrointestinal: Reports as per HPI and Denies abdominal pain Genitourinary: Genitourinary: Reports as per HPI and Denies dysuria Musculoskeletal: Musculoskeletal: Reports as per HPI Neurologic: Reports as per HPI, Denies dizziness and Denies syncope PMF Past Medical History Medical History Chronic kidney disease, stage 3b Diabetes mellitus Hyperlipidemia Hypertension Hypothyroidism Psoriatic arthritis Type 2 diabetes mellitus Surgical History Surgical History Total knee replacement status Family History Family History Father Hypertension Social History Social History Social History: Surrogate medical decision maker: Nilsa Frazier, spouse. Code status: Full code. Smoking status:
[2023-03-09 07:56] LABS: Glucose Point of Care 156 mg/dl (65-105)
--- NOTE | 2023-03-09 08:00 | ECG_ITS ---
Measurements Intervals [place] Rate: 124 P: 3 MO: 151 QRS: 65 QRSD: 101 T: 82 QT: 330 QTc: 475 Interpretive Statements SINUS TACHYCARDIA POSSIBLE ANTERIOR MYOCARDIAL INFARCTION PROBABLY OLD ABNORMAL ECG COMPARED TO ECG 03/08/2023 23:54:27 NO SIGNIFICANT CHANGES Electronically Signed On 03-09-2023 9:08:45 CDT by Luis Felipe Downey M.D.
[2023-03-09] MEDS: ALBUMIN HUMAN 25% 25 GM/100 ML 100 ML 60 GM (09:55)
[2023-03-09] MEDS: ETOMIDATE 20 MG/10 ML AMPUL IV PUSH ×2 (10:05→10:08)
[2023-03-09] MEDS: ROCURONIUM BROMIDE 50 MG/5 ML VIAL IV PUSH (10:06)
--- NOTE | 2023-03-09 10:10 | WPDANESPN ---
Anes - Prog Note Post-Op Date/Time: 03/09/23 10:10 Cardiovascular status: normal Respiratory status: normal Airway patency: baseline Mental status: baseline Post-Op hydration status: normal Vital Signs: Last Vital Signs Temp 36.4 C 03/09/23 07:44 Pulse 133 H 03/09/23 07:44 Resp 40 H 03/09/23 07:44 BP 99/72 L 03/09/23 07:44 Pulse Ox 92 03/09/23 07:44 O2 Del Method BiPAP 03/09/23 04:00 O2 Flow Rate 6 03/09/23 00:30 FiO2 85 03/09/23 04:00 Pain Score (VAS): 0 I/O: Intake & Output 03/08/23 03/09/23 03/09/23 23:59 07:59 15:59 Intake Total 600 Output Total 300 300 Balance 300 -300 Laboratory Tests 03/09/23 04:47 03/09/23 04:47 03/08/23 03/08/23 03/08/23 11:48 12:05 17:27 WBC 10.1 H RBC 3.32 L Hgb 10.1 L Hct 32.4 L MCV 97.6 MCH 30.4 MCHC 31.2 L RDW 14.2 Plt Count 223 MPV 11.2 H PT INR APTT D-Dimer Puncture Site ABG pH ABG pCO2 ABG pO2 ABG PO2/FiO2 Ratio ABG HCO3 ABG O2 Saturation ABG O2 Content ABG Base Excess A-a Gradient Oxyhemoglobin Carboxyhemoglobin Methemoglobin Reduced Hemoglobin Total Hemoglobin O2 Delivery Device O2 Liters/Min FiO2 Sodium 134 L Potassium 3.7 Chloride 97 L Carbon Dioxide 28 Anion Gap 9 BUN 39 H D Creatinine 5.40 H Estim Creat Clear Calc 14 Estimated GFR 11 L Glucose 136 H POC Capillary Glucose 137 H 103 Calcium 7.5 L Magnesium Total Bilirubin AST ALT Alkaline Phosphatase Troponin I NT-Pro-B Natriuret Pep Total Protein Albumin 03/08/23 03/08/23 03/08/23 22:09 22:37 22:51 WBC RBC Hgb Hct MCV MCH MCHC RDW Plt Count MPV PT 15.7 H INR 1.2 APTT 30.9 D-Dimer Puncture Site Right radial ABG pH 7.462 H ABG pCO2 28.0 L ABG pO2 56.0 L ABG PO2/FiO2 Ratio 1.27 ABG HCO3 19.6 L ABG O2 Saturation 91.2 L ABG O2 Content 18.8 ABG Base Excess -2.7 A-a Gradient 225.8 Oxyhemoglobin 88.7 L Carboxyhemoglobin 0.8 Methemoglobin 0.2 Reduced Hemoglobin 10.3 H Total Hemoglobin 15.1 O2 Delivery Device Nasal cannula O2 Liters/Min 6.0 FiO2 44 Sodium Potassium Chloride Carbon Dioxide Anion Gap BUN Creatinine Estim Creat Clear Calc Estimated GFR Glucose POC Capillary Glucose 150 H Calcium Magnesium Total Bilirubin AST ALT Alkaline Phosphatase Troponin I NT-Pro-B Natriuret Pep Total Protein Albumin 03/08/23 03/09/23 03/09/23 22:56 02:06 04:47 WBC 13.3 H 17.4 H RBC 3.28 L 3.68 L Hgb 9.9 L 11.4 L Hct 31.3 L 36.9 L MCV 95.4 100.3 H D MCH 30.2 31.0 MCHC 31.6 L 30.9 L RDW 14.4 14.6 H Plt Count 227 230 MPV 11.2 H 11.4 H PT INR APTT D-Dimer 6.46 H Puncture Site ABG pH ABG pCO2 ABG pO2 ABG PO2/FiO2 Ratio ABG HCO3 ABG O2 Saturation ABG O2 Content ABG Base Excess A-a Gradient Oxyhemoglobin Carboxyhemoglobin Methemoglobin Reduced Hemoglobin Total Hemoglobin O2 Delivery Device O2 Liters/Min FiO2 Sodium 133 L 135 L Potassium 4.2 4.7 Chloride 102 101 Carbon Dioxide 19 L 19 L Anion Gap 12 15 BUN 22 H D 26 H Creatinine 3.80 H 4.40 H Estim Creat Clear Calc 19 17 Estimated GFR 16 L 13 L Glucose 137 H 162 H POC Capillary Glucose Calcium 8.1 L 8.4 Magnesium 1.7 Total Bilirubin 0.7 AST 202 H ALT 76 H Alkaline Phosphatase 96 Troponin I 10.800 H* 17.000 H* D 27.700 H* D NT-Pro-B Natriuret Pep 76042 H Total Protein 6.0 L Albumin 2.9 L 03/09/23 03/09/23 07:04 07:41 WBC RBC Hgb Hct MCV MCH MCHC RDW Plt Count MPV PT INR APTT 80.4 H D-Dimer Puncture Site ABG pH ABG pCO2 ABG pO2 A
[2023-03-09] MEDS: NOREPINEPHRINE 8 MG/D5W 250 ML 8 MG/250 ML BAG 9.38 MG IV CONT (10:25)
[2023-03-09] MEDS: MIDAZOLAM 100MG/NS 100ML(*CRX) 100 MG/100 ML BAG IV CONT (10:30)
[2023-03-09] MEDS: FENTANYL 2,500MCG/NS250ML(*CRX 2,500 MCG/250 ML BAG IV CONT (10:30)
--- NOTE | 2023-03-09 10:55 | P.PNIM_ITS ---
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 Monroy for chronic kidney disease stage IIIB thought to be related to hypertension and diabetes. Creatinine in November was 1.66. Creatinine on admission 14.6. Etiology unclear. * [place] catheter has been placed to monitor strict I/O. * Renal ultrasound revealed nephrolithiasis otherwise unremarkable. * Started on a bicarbonate carbonate drip and discontinued on 03/01. * Nephrology has been consulted for their expertise. * Nephrotoxic medications on hold. * Patient's BUN and creatinine in not improving and patient and his family decided to go through with dialysis. * General surgery consulted to place emergent hemodialysis access at bedside. * Patient underwent 1st dialysis session on 03/05/2023. BUN and creatinine improved. * It is presumed that patient wall undergo dialysis on Tuesday. * Discussed with Nephrology and they are okay with discharge once patient's outpatient dialysis treatments are range through care coordination. (5) Urinary tract infection: Code(s): N39.0 - Urinary tract infection, site not specified Status: Acute Assessment and Plan: UA is positive for 1+ leukocyte esterase, greater than 100 WBC, WBC clumps, and 1+ bacteria. * Urine culture positive for Serratia marcescens * Blood cultures positive for Serratia marcescens (1 bottle also had Staph epidermis and the other 1 had Staph hominis. I suspect both of these are co ntaminants.) * Rocephin increased to 2 g on 03/01/2023 and treatment completed on 03/07/2023. * Repeat blood cultures have remained negative to date (6) Transaminitis: Code(s): R74.01 - Elevation of levels of liver transaminase levels Status: Acute Assessment and Plan: Abdominal exam is benign and CT of the abdomen and pelvis without contrast showed no findings to correlate. In light of the renal failure, a CK was checked and was elevated at 1309. I suppose it is plausible that his CK was higher and is now drifting downwards however he gives no history to suggest a reason for him to have rhabdomyolysis. * Hepatitis studies Negative * Hold adalimumab and rosuvastatin. * Continue to monitor closely. * liver enzymes trending down (7) Metabolic acidosis: Code(s): E87.20 - Acidosis, unspecified Status: Resolved Assessment and Plan: Likely due to the renal failure itself. Sepsis seems less likely. Lactic acid within normal limits. * ABG showing carbon dioxide 13 with an anion gap of 19 on admission. * Sodium bicarbonate 1300 mg tabs b.i.d. DC on 03/06/23 (8) Electrolyte abn
--- NOTE | 2023-03-09 10:55 | PM.IMPN ---
Progress Note: A&P Assessment and Plan (1) NSTEMI (non-ST elevated myocardial infarction): Code(s): I21.4 - Non-ST elevation (NSTEMI) myocardial infarction Status: Acute Assessment and Plan: Appreciate cardiology consultation, plan to go to [facility] today (2) Acute respiratory failure: Code(s): J96.00 - Acute respiratory failure, unspecified whether with hypoxia or hypercapnia Status: Acute Assessment and Plan: Intubated and sedated and moved to the ICU (3) Shock: Code(s): R57.9 - Shock, unspecified Status: Acute Assessment and Plan: Follow-up blood and urine cultures, continue vancomycin cefepime, cardiogenic versus septic shock (4) Acute on chronic renal failure: Code(s): N17.9 - Acute kidney failure, unspecified; N18.9 - Chronic kidney disease, unspecified Status: Acute Assessment and Plan: Followed by Dr. Monroy for chronic kidney disease stage IIIB thought to be related to hypertension and diabetes. Creatinine in November was 1.66. Creatinine on admission 14.6. Etiology unclear. [place] catheter has been placed to monitor strict I/O. Renal ultrasound revealed nephrolithiasis otherwise unremarkable. Started on a bicarbonate carbonate drip and discontinued on 03/01. Nephrology has been consulted for their expertise. Nephrotoxic medications on hold. Patient's BUN and creatinine in not improving and patient and his family decided to go through with dialysis. General surgery consulted to place emergent hemodialysis access at bedside. Patient underwent 1st dialysis session on 03/05/2023. BUN and creatinine improved. It is presumed that patient wall undergo dialysis on Tuesday. Discussed with Nephrology and they are okay with discharge once patient's outpatient dialysis treatments are range through care coordination. (5) Urinary tract infection: Code(s): N39.0 - Urinary tract infection, site not specified Status: Acute Assessment and Plan: UA is positive for 1+ leukocyte esterase, greater than 100 WBC, WBC clumps, and 1+ bacteria. Urine culture positive for Serratia marcescens Blood cultures positive for Serratia marcescens (1 bottle also had Staph epidermis and the other 1 had Staph hominis. I suspect both of these are contaminants.) Rocephin increased to 2 g on 03/01/2023 and treatment completed on 03/07/2023. Repeat blood cultures have remained negative to date (6) Transaminitis: Code(s): R74.01 - Elevation of levels of liver transaminase levels Status: Acute Assessment and Plan: Abdominal exam is benign and CT of the abdomen and pelvis without contrast showed no findings to correlate. In light of the renal failure, a CK was checked and was elevated at 1309. I suppose it is plausible that his CK was higher and is now drifting downwards however he gives no history to suggest a reason for him to have rhabdomyolysis. Hepatitis studies Negative Hold adalimumab and rosuvastatin. Continue to monitor closely. liver enzymes trending down (7) Metabolic acidosis: Code(s): E87.20 - Acidosis, unspecified Status: Resolved Assessment and Plan: Likely due to the renal failure itself. Sepsis seems less likely. Lactic acid within normal limits. ABG showing carbon dioxide 13 with an anion gap of 19 on admission. Sodium bicarbonate 1300 mg tabs b.i.d. DC on 03/06/23 (8) Electrolyte abnormality: Code(s): E87.8 - Other disorders of electrolyte and fluid balance, not elsewhere classified Status: Resolved Assessment and Plan: Patient developed low sodium, low chloride and low potassium. All have resolved. (9) Type 2 diabetes mellitus: Code(s): E11.9 - Type 2 diabetes mellitus without complications Status: Chronic Assessment and Plan: Sitagliptin and empagliflozin on hold given acute kid
[2023-03-09] MEDS: FUROSEMIDE INJ 40 MG/4 ML VIAL IV PUSH (11:00)
[2023-03-09 11:04] LABS: Alveolar/Arterial O2 Gradient 617.4 mmHg; Base Excess ABG -5.8 mEq/l (+/-2.0); Carboxyhemoglobin 0.3 % THb (0-2.0); Fractional Inspired Oxygen 100 %; HCO3 ABG 18.6 mEq/l (22.0-26.0); Methemoglobin ABG 0.1 %THb (0-1.5); Oxygen Content ABG 14.5 %vol (16.0-22.0); Oxygen Saturation ABG 91.8 % (95.0-100.0); Oxyhemoglobin 89.3 % THb (90.0-100.0); PCO2 ABG 32.8 mmHg (35.0-45.0); PO2 ABG 62.8 mmHg (80.0-100.0); PO2 FiO2 Ratio Arterial Blood 0.63 %; Reduced Hemoglobin 10.3 %THb (0-5.0); Total Hemoglobin 11.5 g/dL (12.0-18.0); pH ABG 7.372 (7.350-7.450)
[2023-03-09 11:05] LABS: Device VENTILATOR; Site Drawn LEFT BRACHIAL
[2023-03-09 11:06] LABS: Arterial Blood Gas PEEP 10 cmH2O; Arterial Blood Gas Tidal Volume 450 ml; Arterial Blood Gas Vent Mode CMV; Arterial Blood Gas Ventilator rate 20 /MIN
--- NOTE | 2023-03-09 11:13 | WPDPROCEDUR ---
Procedures Intubation Intubation Date: 03/09/23 Intubation Time: 10:40 Consent: Consent was obtained from the patient, explained to him the reason for intubation, he is agreeable. A pre-procedural Time-Out was completed immediately before starting the procedure and confirmed: Patient Identification, Site, Procedure, Patient Position and the Availability of Requisite Equipment: Yes Sedative: etomidate Paralytic: rocuronium Laryngoscope: fiber optic video scope Assist device used: fiber optic device ET tube size: 8 Tube secured depth (cm): 24 Tube secured location: lips Tube placement confirmation: visualized tube passing through cords, equal breath sounds bilaterally, no breath sounds over epigastrium and confirmation by capnometry Patient tolerated procedure: no complications Intubation complications: none
--- NOTE | 2023-03-09 11:15 | WPDPROCEDUR ---
Procedures Central Line Placement Left Femoral: Central Line Date: 03/09/23 Central Line Time: 10:54 Discussed w/ the patient/family/POA,the placement of a central venous catheter, including its clinical necessity/indication & associated potential risks, benifits and alternatives.: Yes The patient/family/POA understand(s) and acknowledge(s) the need to proceed with central venous catheter insertion as an important element of the patient's clinical management.: Yes Consent: I have discussed with the patient and/or surrogate, the non-emergent placement of a central venous catheter, including its clinical necessity/indication and associated potential risks and complications. The patient and/or surrogate understand(s) and acknowledge(s) the need to proceed with central venous catheter insertion as an important element of the patient's clinical management. Time Out Performed: Yes Patient Position: supine Patient placed on monitor/pulse ox: Yes Provider Prep: mask, sterile gown, sterile gloves, Max. sterile barrier precautions, cap and hand hygiene with conventional soap/water or alcohol based hand rub Central line prep: 2% Chlorhexidine scrub and sterile full body sheet applied Local anesthesia used: lidocaine 1% Amount of anesthesia used (ml): 3 Sterile US Technique with sterile gel/sterile probe covers: Yes Central line lumen inserted: triple American: 12 Length (cm): 20 Post Procedure: sutured in place, good blood return, all ports aspirated, flushed, capped, transparent dressing, hemostatic product, antimicrobial product, securement product and aseptic technique maintained throughout procedure Patient tolerated procedure: well Complications: none
--- NOTE | 2023-03-09 11:17 | WPDCNINT ---
Assessment and Plan Assessment and plan (1) Acute respiratory failure: Code(s): J96.00 - Acute respiratory failure, unspecified whether with hypoxia or hypercapnia Status: Acute Assessment and Plan: Patient hypoxic overnight with increasing oxygen requirement placed on BiPAP, likely related to pulmonary edema which could be related to cardiogenic causes given that he has NSTEMI. -03/09: Patient was brought from intermediate Unit and intubated in the ICU, intubation was uneventful -placed on CMV mode of ventilation, peep of 10 and 100% FiO2 -ABGs were adequate with PO2 of 62 -patient was given Lasix 40 mg IV x1 -start bronchodilators Sedated with fentanyl and Versed infusion, maintain RASS of 0 to -2 (2) NSTEMI (non-ST elevated myocardial infarction): Code(s): I21.4 - Non-ST elevation (NSTEMI) myocardial infarction Status: Acute Assessment and Plan: Chest pain, elevated troponin - NSTEMI on heparin infusion - d/w Cardiology, Pt to be taken to [facility] for angiogram. -cardiology following (3) Shock: Code(s): R57.9 - Shock, unspecified Status: Acute Assessment and Plan: pt in shock, likely cardiogenic and/or septic shock -started on cefepime and vancomycin -will check blood cultures and urine culture (4) Acute on chronic renal failure: Code(s): N17.9 - Acute kidney failure, unspecified; N18.9 - Chronic kidney disease, unspecified Status: Acute Assessment and Plan: Patient has history of chronic kidney disease stage 3, went into acute on chronic renal failure likely related to ATN from infection/sepsis. -patient had significant uremia dialysis catheter was placed on 03/05 and started on dialysis. -nephrology following, -dialysis per Nephrology (5) Sepsis: Code(s): A41.9 - Sepsis, unspecified organism Status: Acute Assessment and Plan: 02/26: blood cultures and urine cultures grew Serratia marcescens, blood cultures also grew Staph epidermidis and Staph hominis. 03/03: Repeat blood cultures were negative s/p sbx course (6) Type 2 diabetes mellitus: Code(s): E11.9 - Type 2 diabetes mellitus without complications Status: Chronic Assessment and Plan: accucheks and SSI Plan DVT prophylaxis:heparin infusion Stress ulcer prophylaxis: Protonix Nutrition: NPO Code Status: Full code Critical Care Time Spent: 55 minutes Due to a high probability of clinically significant, life threatening deterioration, the patient required my highest level of preparedness to intervene emergently and I personally spent this critical care time directly and personally managing the patient. This critical care time included obtaining a history; examining the patient; pulse oximetry; ordering and review of studies; arranging urgent treatment with development of a management plan; evaluation of patient's response to treatment; frequent reassessment; and discussions with other providers. It was exclusive of separately billable procedures and treating other patients and teaching time. Please see Assessment and Plan section and the rest of the note for further information on patient assessment and treatment This dictation may have been done utilizing a voice recognition system. Attempts have been made to correct errors. However, there may be uncorrected grammatical, spelling, and recognitions errors present. [facility] [employer] Consult Note Consult date: 03/09/23 Reason for consult: Acute respiratory failure secondary to diffuse pulmonary edema, NSTEMI, acute on chronic kidney disease patient on dialysis. Shock, cardiogenic versus septic HPI: Didier Frazier is a 67 year old male with past medical history of chronic kidney disease stage 3, type 2 diabetes, hyperlipidemia, essential hypertension, hypothyroidism, psoriatic arthritis presented to the ER on 02/26/2023 for decreased urine output, malaise, found to have acute on chronic kidney disease likely relate
--- NOTE | 2023-03-09 11:22 | WPDMODSED ---
Moderate Sedation Note-Pt Data Patient Data Diagnosis: NSTEMI, cardiogenic shock Present Complaint: none, intubated Procedure to be performed/Plan: left heart catheterization with selective left and right coronary angiography and left ventriculography and hemodynamics Allergies Allergy/AdvReac Type Severity Reaction Status Date / Time Siberian ginseng Allergy Mild HIVES Verified 03/08/23 07:25 hummus Allergy Intermediate Swelling Uncoded 03/08/23 07:25 green tea Allergy Other Uncoded 03/08/23 07:25 Home Medications Medication Instructions Recorded Confirmed Type adalimumab 40 mg/0.8 mL 40 mg subcut .EVERY 10 DAYS 06/12/19 02/26/23 History subcutaneous pen kit (Humira Pen) folic acid 1 mg tablet 1 mg PO DAILY 06/12/19 02/26/23 History methotrexate sodium 2.5 mg tablet 5 mg PO WEEKLY 01/14/21 02/26/23 History rosuvastatin 20 mg tablet 20 mg PO DAILY #90 tabs 12/31/22 02/26/23 Rx sitagliptin phosphate 50 mg tablet 50 mg PO DAILY #30 tabs 02/02/23 02/26/23 Rx (Januvia) empagliflozin 25 mg tablet 25 mg PO DAILY 02/26/23 02/26/23 History (Jardiance) lisinopril 40 mg tablet 40 mg PO Q12H 02/26/23 02/26/23 History Current Medications: Active Medications Acetaminophen (Acetaminophen 325 Mg Tablet) 650 mg PO Q6H PRN PRN Reason: Mild Pain (1-3) or Fever Hydrocodone Bitart/Acetaminophen (Hydrocodone/Acetaminophen (*Crx) 5-325 Mg Tablet) 1 tab PO Q6H PRN PRN Reason: Pain Level 4-10 Last Admin: 03/08/23 17:22 Dose: 1 tab Aspirin (Aspirin 81 Mg Enteric Tablet) 81 mg PO QAM FOR[facility]LY [facility], [facility]1983 Dextrose (Dextrose 50% 25 Gm/50 Ml Syringe) 12.5 gm IV PUSH PRN PRN; Protocol PRN Reason: Hypoglycemia Glucagon (Glucagon For Inj 1 Mg Vial) 1 mg IM PRN PRN; Protocol PRN Reason: Hypoglycemia Glucose (Glucose Oral Gel 15 Gm Of Glucse In 37.5 Gm Tube) 15 gm PO PRN PRN; Protocol PRN Reason: Hypoglycemia Heparin Sodium (Porcine) (Heparin Sodium 5,000 Units/Ml Vial) 3,000 units IV PUSH PRN PRN PRN Reason: aPTT 55 - 70 seconds Heparin Sodium (Porcine) (Heparin Sodium 5,000 Units/Ml Vial) 4,000 units IV PUSH PRN PRN PRN Reason: aPTT less than 55 seconds Dextrose (Dextrose 5% 1,000 Ml) 1,000 mls @ 100 mls/hr IVPB PRN PRN; Protocol PRN Reason: Hypoglycemia Heparin Sodium/Dextrose (Heparin Sodium/D5w 100 Units/Ml) 25,000 units in 250 mls @ 10 mls/hr IV CONT .Q24H ROMELIA; Protocol Last Titration: 03/09/23 05:54 Dose: 1,000 units/hr, 10 mls/hr Fentanyl Citrate (Fentanyl 2,500 Mcg/Ns 250 Ml) 2,500 mcg in 250 mls @ 2.5 mls/hr IV CONT .Q72H ROMELIA; Protocol Midazolam HCl (Versed 100 Mg/Ns 100 Ml) 100 mg in 100 mls @ 1 mls/hr IV CONT .Q72H ROMELIA; Protocol Norepinephrine Bitartrate (Levophed 8 Mg/D5w 250 Ml) 8 mg in 250 mls @ 9.375 mls/hr IV CONT .Q24H ROMELIA; Protocol Insulin Aspart (Insulin Aspart (*Bkc) 100 Units/Ml) 2 - 5 units SUB-Q TIDWM ROMELIA; Protocol Last Admin: 03/08/23 17:00 Dose: Not Given Insulin Aspart (Insulin Aspart (*Bkc) 100 Units/Ml) 1 - 2 units SUB-Q HS ROMELIA; Protocol Last Admin: 03/08/23 22:45 Dose: Not Given Lorazepam (Lorazepam Inj (*Crx) 2 Mg/Ml Vial) 0.5 mg IV PUSH Q6H PRN PRN Reason: Anxiety Last Admin: 03/09/23 05:36 Dose: 0.5 mg Metoprolol Tartrate (Metoprolol Tartrate 12.5 Mg Tablet) 12.5 mg PO Q12HR FOR[facility]LY [facility], [facility]1983 Multi-Ingred Cream/Lotion/Oil/Oint (Mineral Oil/White Petrolatum Ointment) 1 applic EACH EYE Q12HR FOR[facility]LY [facility], [facility]–1983 Ondansetron HCl (Ondansetron Inj 4 Mg/2 Ml Vial) 4 mg IV PUSH Q4H PRN PRN Reason: Nausea And Vomiting Last Admin: 03/09/23 05:36 Dose: 4 mg Perflutren Lipid Microsphere (Perflutren Lipid Microspheres 1.5 Ml Vial Diluted To 10 Ml Total Volume) 0 ml IV PUSH ONCE PRN; Protocol PRN Reason: adequate visualization Stop: 03/12/23 06:52 Sedation/Anesthesia: No previous sedation/anesthesia problems (including family history). [facility] Past Medical History Medical History Chronic kidney disease, stage 3b Diabetes mellitus Hyperlipidemia Hypertens
--- NOTE | 2023-03-09 11:23 | PC.NURSE ---
Dialysis note: Patient's blood pressure too soft for DUF treatment at 87/68, HR 122. Dr. Thorne notified. cancelling treatment due to patient's condition. Floor staff still in room and will take him back to IMU. Treatment cancelled after set-up.
--- NOTE | 2023-03-09 11:25 | WPDCARDPROC ---
Cardiac Cath Procedure Note Date of procedure:: 03/09/23 Performing physician:: Luis Felipe Downey MD Indication:: NSTEMI, cardiogenic shock, acute respiratory failure Brief clinical history:: patient is a 67-year-old male was admitted 02/26/2023 weakness, malaise, reduced urine output and acute kidney injury with a past medical history significant for diabetes, hypertension and concern for rhabdo with elevated CK treated for urosepsis. Last night patient had acute onset respiratory failure with hypoxia and complaints of chest pain. Twelve ECG revealed diffuse ST depression consistent myocardial ischemia initial troponin was obtained and was elevated at 10. Troponins were subsequently followed peaking to 27. Patient was placed on BiPAP with FiO2 60% with relative hypotension with systolic blood pressures in the 80s and 90s. He was not deemed stable to undergo hemodialysis today due to hypotension. He is not complaining of chest pain at this time but due to respiratory failure, relative hypotension, elevated troponin coronary angiography was requested by Dr. Kulkarni and I have been asked to perform the diagnostic portion of the procedure. patient was not deemed stable to proceed to coronary angiography given his current respiratory status. I then discussed with Dr. Ruth transfer to ICU and intubation and mechanical ventilatory support along with anticipated need for pressors with central line placement prior to proceeding with coronary angiography. He has no prior known history of CAD, CHF. Procedure Procedure performed:: Left heart catheterization with selective left and right coronary angiography left ventricular hemodynamics Sedation/Medication given:: SEDATION/ANESTHESIA ADMINISTRATION: Patient reports no prior problems with sedation/anesthesia. Please see pre-sedation noted for physical examination documentation. Pt remained sedated with Versed and Fentanyl infusion initiated by Critical Care in the ICU pursuant to intubation and mechanical ventilatory support. There were no other issues or complications. See post-anesthesia documentation. procedure start time 11:14 a.m. end time 12:31 p.m. for a total of 77 minutes procedure time including interventional procedures with Dr. Song of Interventional Cardiology. Access site:: right femoral artery Estimated blood loss:: 10cc Procedure note:: BRIEF HISTORY OF PRESENT ILLNESS: Patient is a 67-year-old male with diabetes, hypertension, hyperlipidemia presented with acute renal failure, lethargy urosepsis who developed chest pain and significant troponin elevation with ECG changes consistent with non ST elevation myocardial infarction. Patient developed acute respiratory distress with progressive hypotension culminating in cardiogenic shock. his troponin was up to 27 due to respiratory distress occurring FiO2 60% on BiPAP reason transfer to the ICU and intubated. Central line was placed Critical Care and he was initiated on pressor support. He presented to the cardiac catheterization lab on Levophed gtt. Coronary angiography was urgently advised due to acute hypoxic respiratory failure, cardiogenic shock in setting of acute coronary syndrome. PROCEDURES PERFORMED: 1. Left heart catheterization 2. Selective left and right coronary angiography 3. Left ventriculography and hemodynamics 4. Sedation previously initiated due to intubation and mechanical ventilatory support with Versed and Fentanyl CATHETERS UTILIZED: Left coronary system- 5 [place] JL4 catheter Right coronary system- 5 [place] JR4 catheter Left ventriculography and hemodynamics- 5 [place] angled pigtail catheter Findings:: PROCEDURE IN DETAIL: After verbal and written informed consent was obtained the patient's as patient was intubated and sedated with risks, benefits, and alternatives explained in detail she agreed to proceed with the plan of care as outlined above As patient was brought to the catheteriza
--- NOTE | 2023-03-09 11:35 | PC.NURSE ---
This patient, Didier Frazier, was transferred to [ICU room 9 ] on 03/09/23 at 0953. Personal belongings sent with patient. Report given to [ALPESH Munoz ]. Appropriate documentation sent with patient.
--- NOTE | 2023-03-09 12:48 | P.PCNCC_ITS ---
Cardiac Cath Procedure Note Date of procedure:: 03/09/23 Performing physician:: Negro Song MD Procedure Procedure performed:: CARDIAC CATHETERIZATION AND PERCUTANEOUS CORONARY INTERVENTION REPORT DATE OF PROCEDURE: 03/09/2023 INDICATION FOR PROCEDURE: Non ST-elevation myocardial infarction with hemodynamic instability BRIEF CLINICAL HISTORY: 67-year-old male with hypertension, diabetes mellitus. Patient was referred by Dr. 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 Upon review of the angiographic images, we proceeded with the IVUS assessment of the left main and placement of mechanical support. Consent for the procedure was already taken prior to the intervention. PROCEDURES PERFORMED: 1. Selective left coronary angiogram 2. Percutaneous coronary intervention-intravascular ultrasound of left main coronary artery 3. Distal abdominal aortogram with bilateral iliac runoff SEDATION: Patient was intubated and already sedated PROCEDURE NOTE: Patient already had [address], which was upgraded to 6 Welsh sheath. Patient was given unfractionated heparin for procedural anticoagulation. Left main coronary artery ostium was selectively engaged using 6 Welsh 3.5 CLS guide catheter. A 0.014 luge wire was advanced into the LAD. Next, IVUS was performed using [employer] Eye catheter on manual pullback. Left main coronary artery is diffusely disease with calcification. Minimal cross-sectional area of left main was measured at 4.7 mm2. IVUS and wire was taken out and final angiogram showed no dissection or distal embolization. Next, 5 Welsh pigtail catheter was advanced in the distal abdominal aorta, distal abdominal aortogram with bilateral iliac runoff was performed. Due to patient's in hemodynamic instability, we proceeded with the intra-aortic balloon pump placement. The access site was very close to bifurcation of common femoral artery, and not amenable for Impella. Next, 6 Welsh sheath was taken out and a n 8 Welsh sheath was placed over 035 wire. Next, intra-aortic balloon pump was placed under fluoroscopic guidance, and augmentation was initiated at one-to-one. Augmented mean pressure was 19 mmHg. The sheath was secured in place. No immediate procedure related complications. Patient was initiated on heparin drip. Dr. Downey and Dr. Kulkarni updated. CONCLUSIONS: 1. Non ST-elevation KS with hemodynamic instability. 2. Multivessel CAD involving diffusely diseased left main coronary artery (minimal cross-sectional area 4.7 mm2 on IVUS), high-grade stenosis in the mid LAD, ostial diagonal branch; chronic total occlusion ostial LCX, diffuse disease RCA (diagnostic coronary angiographic findings dictated separately by Dr. Downey). 3. 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 Kulkarni updated about patient's angiographic and IVUS findings. Recommend surgical revascularization. Further management and, transfer to a facility where CABG can not be performed, as per Dr. Kulkarni. Thank you for the opportunity to participate in the cardiovascular care of infection. This document was completed by using [employer] Fluency Direct speech recognition software, therefore, ceramic engineering professor variances may occur.
--- NOTE | 2023-03-09 13:07 | P.PNNP_ITS ---
Progress Note: A&P Assessment and Plan (1) CALLI (acute kidney injury): Code(s): N17.9 - Acute kidney failure, unspecified Status: Acute Assessment and Plan: * evaluation to date noted: * urine electrolytes non-prerenal * urine eosinophils negative * CPK mildly elevated but coming down * proteinuria noted * renal ultrasound w/o obstruction * suspect ATN from infection/sepsis (+ blood/urine culture noted) * uremic symptoms are better after dialysis * as he will probably need dialysis for several treatments if not longer; s/p tunneled HD catheter for outpatient dialysis * HD yesterday -- outpatient dialysis being arranged (reportedly will be on a T/T/S schedule) (2) Chronic kidney disease, stage 3b: Code(s): N18.32 - Chronic kidney disease, stage 3b Status: Chronic Assessment and Plan: * baseline creatinine runs ~ 1.6 - 2.0mg/dl in the last year * due to hypertension and diabetes (based on outpatient evaluation) (3) NSTEMI (non-ST elevated myocardial infarction): Code(s): I21.4 - Non-ST elevation (NSTEMI) myocardial infarction Status: Acute Assessment and Plan: * Cardiology following * s/p cardiac catheterization with interventions/findings noted * likely transfer to another facility for CABG (4) Shock: Code(s): R57.9 - Shock, unspecified Status: Acute Assessment and Plan: * cardiogenic versus septic versus combination of both * on vasopressor theray * recheck cultures * on broad spectrum antibiotics * continue supportive therapy (5) Acute respiratory failure: Code(s): J96.00 - Acute respiratory failure, unspecified whether with hypoxia or hypercapnia Status: Acute Assessment and Plan: * due to pulmonary edema * possibly precipitated by cardiogenic shock from NSTEMI * intubated and sedated * continue ventilator support (6) Sepsis: Code(s): A41.9 - Sepsis, unspecified organism Status: Acute Assessment and Plan: * had resolved - completed course of antibiotics * however, events in the last 24 hours concerning for possible new infection * admission blood culture with Serratia marcescens and Staphylococcus epidermidis * admission urine culture with Serratia marcescens * complicated by immunosuppression (on Humira and methotrexate) * blood cultures on 03/03 are negative to date (7) Type 2 diabetes mellitus: Code(s): E11.9 - Type 2 diabetes mellitus without complications Status: Chronic Assessment and Plan: * follow accu-cheks * glycemic control per hospitalists Discussed case with Dr. Ruth. Will continue to follow. Subjective Date/time seen: 03/09/23 13:07 Interval history: Follow-up for acute kidney injury/acute renal failure on chronic kidney disease. Events noted overnight and earlier this morning -- ?worsening shortness of breath associated with hypoxia; initiated on BiPAP therapy with improvement in respiratory status but noted to be more hypotensive; stat labs significant for elevated troponins and CXR with significant pulmonary edema; started on heparin gtt for suspected NSTEMI; transferred to ICU due to ongoing hemodynamic inst ability and worsening respiratory status -- subsequently intubated and femoral central line placed (given that he was on heparin gtt) and initated on vasopressor therapy; taken to central lab technician with findings noted and placement of intra-aortic ballon pump. Exam Narrative: General: WD/WN male in N
--- NOTE | 2023-03-09 13:07 | PM.PNNEP ---
Progress Note: A&P Assessment and Plan (1) CALLI (acute kidney injury): Code(s): N17.9 - Acute kidney failure, unspecified Status: Acute Assessment and Plan: evaluation to date noted: urine electrolytes non-prerenal urine eosinophils negative CPK mildly elevated but coming down proteinuria noted renal ultrasound w/o obstruction suspect ATN from infection/sepsis (+ blood/urine culture noted) uremic symptoms are better after dialysis as he will probably need dialysis for several treatments if not longer; s/p tunneled HD catheter for outpatient dialysis HD yesterday -- outpatient dialysis being arranged (reportedly will be on a T/T/S schedule) (2) Chronic kidney disease, stage 3b: Code(s): N18.32 - Chronic kidney disease, stage 3b Status: Chronic Assessment and Plan: baseline creatinine runs ~ 1.6 - 2.0mg/dl in the last year due to hypertension and diabetes (based on outpatient evaluation) (3) NSTEMI (non-ST elevated myocardial infarction): Code(s): I21.4 - Non-ST elevation (NSTEMI) myocardial infarction Status: Acute Assessment and Plan: Cardiology following s/p cardiac catheterization with interventions/findings noted likely transfer to another facility for CABG (4) Shock: Code(s): R57.9 - Shock, unspecified Status: Acute Assessment and Plan: cardiogenic versus septic versus combination of both on vasopressor theray recheck cultures on broad spectrum antibiotics continue supportive therapy (5) Acute respiratory failure: Code(s): J96.00 - Acute respiratory failure, unspecified whether with hypoxia or hypercapnia Status: Acute Assessment and Plan: due to pulmonary edema possibly precipitated by cardiogenic shock from NSTEMI intubated and sedated continue ventilator support (6) Sepsis: Code(s): A41.9 - Sepsis, unspecified organism Status: Acute Assessment and Plan: had resolved - completed course of antibiotics however, events in the last 24 hours concerning for possible new infection admission blood culture with Serratia marcescens and Staphylococcus epidermidis admission urine culture with Serratia marcescens complicated by immunosuppression (on Humira and methotrexate) blood cultures on 03/03 are negative to date (7) Type 2 diabetes mellitus: Code(s): E11.9 - Type 2 diabetes mellitus without complications Status: Chronic Assessment and Plan: follow accu-cheks glycemic control per hospitalists Discussed case with Dr. Ruth. Will continue to follow. Subjective Date/time seen: 03/09/23 13:07 Interval history: Follow-up for acute kidney injury/acute renal failure on chronic kidney disease. 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 Exam Narrative: General: WD/WN male in NAD Heart: normal S1 and S2; no rub Lungs: coarse throughout Abdomen: soft, nontender, nondistended, positive bowel sounds Extremities: no cyanosis or clubbing; no edema Skin: Warm and dry Objective Data Vital Signs Vital Signs: Vital Signs Temp Pulse Resp BP Pulse Ox O2 Del Method O2 Flow Rate 03/09/23 13:05 102/77 03/09/23 10:35 87/72 L 03/09/23 10:30 62/48 L 03/09/23 10:25 62/54 L 03/09/23 14:13 100 22 H
[2023-03-09 13:54] LABS: HIV 1/2 Ab P24 Ag Result Negative (Negative)
--- NOTE | 2023-03-09 14:10 | PCFNICU ---
ICU Rounding Note: Pt current nutrition is NPO. Nutrition recommendation:Nepro at 20 ml/hr advance by 10 ml q 4 hours to 40 ml/hr. Last recorded weight is 97.5 kg, up from 94.9 kg on admit. Bowel Motility:last reported BM 03/08 Labs Reviewed:Glu 162, Cr 4.4,BUN 26, GFR 13, Na 135 Meds Noted:Versed, Fentanyl, Heparin Skin: WNL Additional Notes: Patient transferred to ICU, intubated. label operator today for procedure. Nutrition recommendations: Nepro at 20 ml/hr advance by 10 ml q 4 hours to 40 ml/hr. Flush 30 ml q 4 hours. Will continue to monitor. Following daily in ICU rounds.
--- NOTE | 2023-03-09 14:35 | PC.NURSE ---
Report given to [employer] transport
[2023-03-09] MEDS: NOREPINEPHRINE 8 MG/D5W 250 ML 8 MG/250 ML BAG 45 MG IV CONT (14:37)
[2023-03-09 14:43] LABS: Partial Thromboplastin Time > 200.0 SECONDS (22.3-36.8)
--- NOTE | 2023-03-09 15:15 | PC.NURSE ---
Pt left building with [facility] team
--- NOTE | 2023-03-09 16:28 | PC.NURSE ---
At approximately 0800 the CIGAR PACKER called me to the patient's room. The patient had taken his bipap off. I put him on the high flow nasal cannula at 8L but he was unable to maintain a Sp02 level above 88%. I put him back on bipap. The dialysis nurse called to say he was ready for him to come to treatment, with the pt on bipap I told the nurse I was going to have to wait on respiratory to bring the patient up. Respiratory evaluated the patient and attempted to put the patient on the high flow nasal cannula. Patient was unable to tolerate being off the bipap. At 0824 I spoke with Lana from Dr. Downey's office to make sure it was ok to take the patient to dialysis or if he thought he was going to take the patient to laborer vegetable farm. Lana said Dr. Downey stated he was not going to cath the patient today and he was the only interventionalist here today. At approximately 0830 another nurse from the office called me back to say that it was up to Dr. Kulkarni if the patient went dialysis treatment.
--- NOTE | 2023-03-09 17:06 | PC.NURSE ---
[address] Kulkarni about the pt going to dialysis treatment and Dr. Downey not doing the cath today. Took pt to dialysis, dialysis canceled due to patients blood pressure being to low. [id number] Dr. Butts at pt bedside. Pt restless pulling bipap off and pulling at IV. Received verbal order for 1mg Ativan.
--- NOTE | 2023-03-09 17:10 | PC.NURSE ---
0930 Dr. Downey at pt bedside, spoke with pt about doing cardiac cath. Received verbal order to stop heparin drip. Dr. Downey consulting with ICU pediatric nephrologist about moving pt to ICU. [id number] Called pt's to update about pt's status.
--- NOTE | 2023-03-10 14:20 | P.TS_ITS ---
Transfer Discharge Sum: Prov Provider Date of admission: 02/26/23 14:49 Primary care physician: Abner Denis APRN Admitting clinician: Avni Abel MD Consults: 02/26/23 Consult to Physician Routine Comment: spoke to [phone]) Consulting Provider: Edward Monroy call center support consultant/MD group to consult: nephrology Reason for consultation: acute/chronic kidney injury Has provider been notified: Yes 03/05/23 Consult to Physician Routine Comment: Consulting Provider: Olivia Leiva Reason for consultation: placement of dialysis catheter (tunnelled if time but temp okay) Has provider been notified: Yes 03/05/23 10:53 Care Coordination Consult Routine Comment: Pls place at [facility] for opt dialysis.CALLI Reason for Consult:: Other 03/09/23 Consult to Physician Routine Comment: Consulting Provider: Anthony Kulkarni call center support consultant/MD group to consult: Shad Reason for consultation: NSTEMI Has provider been notified: Yes Consult to Physician Routine Comment: Consulting Provider: Juancarlos Ruth Reason for consultation: respiratory failure Has provider been notified: Yes Consult to Physician Routine Comment: Called office and notified them of consult Consulting Provider: Luis Felipe Downey call center support consultant/MD group to consult: HCG Reason for consultation: [facility] Has provider been notified: Yes DS: Admitting Diagnosis Discharge Date 03/09/23 Admitting Diagnosis Chest pain DS: Discharge Diagnosis Discharge Diagnosis (1) NSTEMI (non-ST elevated myocardial infarction): Code(s): I21.4 - Non-ST elevation (NSTEMI) myocardial infarction Status: Acute Assessment and Plan: Appreciate cardiology consultation, plan to go to medical lab technologist today (2) Acute respiratory failure: Code(s): J96.00 - Acute respiratory failure, unspecified whether with hypoxia or hypercapnia Status: Acute Assessment and Plan: Intubated and sedated and moved to the ICU (3) Shock: Code(s): R57.9 - Shock, unspecified Status: Acute Assessment and Plan: Follow-up blood and urine cultures, continue vancomycin cefepime, cardiogenic versus septic shock (4) Acute on chronic renal failure: Code(s): N17.9 - Acute kidney failure, unspecified; N18.9 - Chronic kidney disease, unspecified Status: Acute Assessment and Plan: Followed by Dr. Monroy for chronic kidney disease stage IIIB thought to be related to hypertension and diabetes. Creatinine in November was 1.66. Creatinine on admission 14.6. Etiology unclear. * [place] catheter has been placed to monitor strict I/O. * Renal ultrasound revealed nephrolithiasis otherwise unremarkable. * Started on a bicarbonate carbonate drip and discontinued on 03/01. * Nephrology has been consulted for their expertise. * Nephrotoxic medications on hold. * Patient's BUN and creatinine in not improving and patient and his family decided to go through with dialysis. * General surgery consulted to place emergent hemodialysis access at bedside. * Patient underwent 1st dialysis session on 03/05/2023. BUN and creatinine improved. * It is presumed that patient wall undergo dialysis on Tuesday. * Discussed with Nephrology and they are okay with discharge once patient's outpatient dialysis treatments are range through care coordination.
--- NOTE | 2023-03-10 14:20 | PM.TDS ---
Transfer Discharge Sum: Prov Provider Date of admission: 02/26/23 14:49 Primary care physician: Abner Denis APRN Admitting clinician: Avni Abel MD Consults: 02/26/23 Consult to Physician Routine Comment: spoke to [phone]) Consulting Provider: Edward Monroy inbound call center representative/MD group to consult: nephrology Reason for consultation: acute/chronic kidney injury Has provider been notified: Yes 03/05/23 Consult to Physician Routine Comment: Consulting Provider: Olivia Leiva Reason for consultation: placement of dialysis catheter (tunnelled if time but temp okay) Has provider been notified: Yes 03/05/23 10:53 Care Coordination Consult Routine Comment: Pls place at [facility] for opt dialysis.CALLI Reason for Consult:: Other 03/09/23 Consult to Physician Routine Comment: Consulting Provider: Anthony Kulkarni inbound call center representative/MD group to consult: Shad Reason for consultation: NSTEMI Has provider been notified: Yes Consult to Physician Routine Comment: Consulting Provider: Juancarlos Ruth Reason for consultation: respiratory failure Has provider been notified: Yes Consult to Physician Routine Comment: Called office and notified them of consult Consulting Provider: Luis Felipe Downey inbound call center representative/MD group to consult: HCG Reason for consultation: [facility] Has provider been notified: Yes DS: Admitting Diagnosis Discharge Date 03/09/23 Admitting Diagnosis Chest pain DS: Discharge Diagnosis Discharge Diagnosis (1) NSTEMI (non-ST elevated myocardial infarction): Code(s): I21.4 - Non-ST elevation (NSTEMI) myocardial infarction Status: Acute Assessment and Plan: Appreciate cardiology consultation, plan to go to biology laboratory assistant today (2) Acute respiratory failure: Code(s): J96.00 - Acute respiratory failure, unspecified whether with hypoxia or hypercapnia Status: Acute Assessment and Plan: Intubated and sedated and moved to the ICU (3) Shock: Code(s): R57.9 - Shock, unspecified Status: Acute Assessment and Plan: Follow-up blood and urine cultures, continue vancomycin cefepime, cardiogenic versus septic shock (4) Acute on chronic renal failure: Code(s): N17.9 - Acute kidney failure, unspecified; N18.9 - Chronic kidney disease, unspecified Status: Acute Assessment and Plan: Followed by Dr. Monroy for chronic kidney disease stage IIIB thought to be related to hypertension and diabetes. Creatinine in November was 1.66. Creatinine on admission 14.6. Etiology unclear. [place] catheter has been placed to monitor strict I/O. Renal ultrasound revealed nephrolithiasis otherwise unremarkable. Started on a bicarbonate carbonate drip and discontinued on 03/01. Nephrology has been consulted for their expertise. Nephrotoxic medications on hold. Patient's BUN and creatinine in not improving and patient and his family decided to go through with dialysis. General surgery consulted to place emergent hemodialysis access at bedside. Patient underwent 1st dialysis session on 03/05/2023. BUN and creatinine improved. It is presumed that patient wall undergo dialysis on Tuesday. Discussed with Nephrology and they are okay with discharge once patient's outpatient dialysis treatments are range through care coordination. (5) Urinary tract infection: Code(s): N39.0 - Urinary tract infection, site not specified Status: Acute Assessment and Plan: UA is positive for 1+ leukocyte esterase, greater than 100 WBC, WBC clumps, and 1+ bacteria. Urine culture positive for Serratia marcescens Blood cultures positive for Serratia marcescens (1 bottle also had Staph epidermis and the other 1 had Staph hominis. I suspect both of these are contaminants.) Rocephin increased to 2 g on 03/01/2023 and treatment completed on 03/07/2023. Repeat blood cultures have remained negative to d
== END 2023-03-09 15:05 | disposition short-term general hospital (02) | DRG 853 ==
LOC: ANHED 12:10 → ANH3MEDSUR 17:25 → ANHIMU 03-09 01:01 → ANHICU 03-09 10:16
PROVIDERS: Internal Medicine; Internal Medicine Cardiovascular Disease; Internal Medicine Critical Care Medicine; Internal Medicine Nephrology; Nurse Practitioner Acute Care; Physician Assistant; Surgery; Admitting Provider Internal Medicine; Emergency Provider Emergency Medicine; PCP Nurse Practitioner; Visit Provider Internal Medicine
PROC: 0JH63XZ Insertion of Tunneled Vascular Access Device into Chest Subcutaneous Tissue and Fascia, Percutaneous Approach (ICD-10-PCS; CPT 36908; principal; 2023-03-08 07:30)
PROC: 4A023N7 Measurement of Cardiac Sampling and Pressure, Left Heart, Percutaneous Approach (ICD-10-PCS; CPT 93452; principal; 2023-03-09 10:50)
PROC: 5A02210 Assistance with Cardiac Output using Balloon Pump, Continuous (ICD-10-PCS; 2023-03-09 10:50)
PROC: 5A02210 Assistance with Cardiac Output using Balloon Pump, Continuous (ICD-10-PCS; 2023-03-09 10:50)
DX: I21.4 Non-ST elevation (NSTEMI) myocardial infarction; J96.01 Acute respiratory failure with hypoxia; A41.9 Sepsis, unspecified organism; R57.0 Cardiogenic shock; N17.0 Acute kidney failure with tubular necrosis; N39.0 Urinary tract infection, site not specified; E87.20 Acidosis, unspecified; B96.89 Other specified bacterial agents as the cause of diseases classified elsewhere; B95.7 Other staphylococcus as the cause of diseases classified elsewhere; I25.10 Atherosclerotic heart disease of native coronary artery without angina pectoris; I12.9 Hypertensive chronic kidney disease with stage 1 through stage 4 chronic kidney disease, or unspecified chronic kidney disease; E03.9 Hypothyroidism, unspecified; E87.8 Other disorders of electrolyte and fluid balance, not elsewhere classified; E11.22 Type 2 diabetes mellitus with diabetic chronic kidney disease; E78.2 Mixed hyperlipidemia; E78.5 Hyperlipidemia, unspecified; E86.0 Dehydration; L40.50 Arthropathic psoriasis, unspecified; N18.32 Chronic kidney disease, stage 3b; N20.0 Calculus of kidney; R74.01 Elevation of levels of liver transaminase levels; Z20.822 Contact with and (suspected) exposure to COVID-19; Z96.659 Presence of unspecified artificial knee joint; Z87.891 Personal history of nicotine dependence; Z79.84 Long term (current) use of oral hypoglycemic drugs
CPT/HCPCS: 31500; 33967; 36415; 36600; 71045; 74176; 76705; 76775; 77001; 80048; 80053; 80069; 81001; 82375; 82436; 82550; 82570; 82595; 82805; 82948; 83036; 83050; 83520; 83605; 83615; 83690; 83735; 83880; 83935; 84100; 84133; 84156; 84300; 84484; 85025; 85027; 85380; 85610; 85652; 85730; 85999; 86036; 86038; 86060; 86140; 86160; 86162; 86215; 86225; 86235; 86703; 86704; 86705; 86706; 86803; 87040; 87077; 87086; 87147; 87181; 87186; 87340; 87636; 87651; 92978; 93005; 93458; 94002; 96361; 96365; 97161; 97165; 99285; A9270; C1750; C1751; C1752; C1753; C1769; C1887; C1894; G0257; G0432; J0696; J1644; J1815; J1940; J2060; J2250; J2405; J2704; J3010; J7030; J7040; J7060; P9047

== ENCOUNTER 2023-11-03 07:15 | Outpatient (RCR) | payer BC, MEDICARE, SELFPAY | END 2023-11-03 23:59 | disposition home or self-care (01) | LOC: ANHCPREHAB 07:15 | DX: Z95.1 Presence of aortocoronary bypass graft (principal) | CPT/HCPCS: 93798 ==

== ENCOUNTER 2023-12-01 07:15 | Outpatient (RCR) | payer MEDICARE, SELFPAY | END 2024-02-20 07:14 | disposition home or self-care (01) | LOC: ANHCPREHAB 07:15 | DX: Z95.1 Presence of aortocoronary bypass graft (principal) | CPT/HCPCS: 93798 ==